=== PATIENT | female | born 1970 | race Caucasian/White ===

== ENCOUNTER 2023-10-31 08:24 | Outpatient (OUT) | payer OTHER, SELFPAY ==
--- NOTE | 2023-10-31 08:33 | US_ITS ---
The [address] [address] Patient Name: PARKER PRIEST MRN: [id number] date: 1970 Sex: F Assigned Patient Location: US Current Patient Location: Accession/Order Number: [id number] Exam Date: 10/31/2023 08:34 Report Date: 11/01/2023 09:30 At the request of: PERRI DEJESUS Procedure: US extremity nonvascular LT EXAMINATION: US extremity nonvascular LT HISTORY: Lymph Node Enlargement R59.9 ; left lower quadrant tender, palpable lump COMPARISON: CT abdomen pelvis 03/31/2020 FINDINGS: Corresponding to patient's palpable lump is a 2.5 x 2.2 x 1.6 cm hypoechoic avascular structure slightly hyperechoic borders. US/US extremity nonvascular LT IMPRESSION: 1. Nonspecific structure corresponding to patient's tender palpable lump. Comparison to prior CT shows a small fat filled direct inguinal hernia in this region. Adjacent density suggests prior hernia repair. Consider CT pelvis with IV contrast for direct comparison and to evaluate for any change since 03/31/2020. Electronically authenticated by: COBY BEDOYA Date: 11/01/2023 09:30
== END 2023-10-31 08:25 | disposition home or self-care (01) ==
LOC: US 08:28
PROVIDERS: PCP Nurse Practitioner Family; Visit Provider Nurse Practitioner Family
DX: R59.9 Enlarged lymph nodes, unspecified (principal); K40.90 Unilateral inguinal hernia, without obstruction or gangrene, not specified as recurrent
CPT/HCPCS: 76882

== ENCOUNTER 2024-08-14 10:04 | Outpatient (OUT) | payer OTHER, SELFPAY ==
[2024-08-14 10:06] LABS: Basophils Percent Auto 0.3 % (0.2-2.0); Eosinophils Absolute Auto 0.6 10^3/uL (0.0-0.7); Eosinophils Percent Auto 4.6 % (0.9-7.0); Hematocrit 39.2 % (36.0-48.0); Hemoglobin 13.4 g/dL (12.0-16.0); Immature Granulocytes Abs Auto 0.03 10^3/uL (0.00-0.03); Immature Granulocytes Pct Auto 0.3 % (0.0-0.5); Lymphocytes Absolute Auto 4.1 10^3/uL (1.2-3.8); Lymphocytes Percent Auto 34.4 % (20.5-60.0); Mean Corpuscular HGB Conc 34.2 g/dL (29.9-35.2); Mean Corpuscular Hemoglobin 31.2 pg (26.7-34.0); Mean Corpuscular Volume 91.2 fL (81.0-99.0); Mean Platelet Volume 9.2 fL (9.5-13.5); Monocytes Percent Auto 8.1 % (1.7-12.0); Neutrophils Absolute Auto 6.2 10^3/uL (1.4-6.5); Neutrophils Percent Auto 52.3 % (43.0-75.0); Platelet Count 338 10^3/uL (150-450); Red Cell Distribution Width 13.2 % (11.0-15.0); White Blood Count 11.9 10^3/uL (4.0-11.0)
--- OUTSIDE RECORDS SUMMARY | 2024-08-14 10:24 | XMS_ITS | CCD ---
Author Organization [facility] Care Team Providers Care Crop Supervisor Name Role Phone VIKRAM MAX ELENO Unavailable Unavailable PARISH, KAM P Unavailable Unavailable PAVLOCK, MAX ELENO Unavailable Unavailable PARISH, KAM P Unavailable Unavailable PARISH, KAM P Unavailable Unavailable PARISH, KAM P Unavailable Unavailable PARISH, KAM P Unavailable Unavailable Unavailable Primary Care Provider UnavailBALTA Almonte V Admitting Unavailable MARKER, JESSIE Referring Unavailable RHEA GILL Attending Unavailable ZULMA DYER Consulting Unavailable NEAL RUANO Attending Unavailable [facility] Primary Care Unavailable KARASIK ., DR ARDON Admitting Unavailabl e KARASIK ., DR ARDON Consulting Unavailabl e KARASIK ., DR ARDON Attending Unavailbrandon e KELSEY, DR SHEILA Conroy Consulting Unavailable LAURA ZAMORAIKH H Primary Care Unavailable KARASIK ., DR ARDON Admitting Unavailabl e KARASIK ., DR ARDON Consulting Unavailabl e KARASIK ., DR ARDON Attending UnavailCRISTIANE Marcus Attending Unavailable CRISTIANE JEREZ Admitting Unavailable CRISTIANE JEREZ Primary Care Physician Cristiane Jerez CNP Unavailable Joe Pollack Attending Unavailable CRISTIANE JEREZ Attending Unavailable CRISTIANE JEREZ Admitting Unavailable Gerardok AUTOMOTIVE INSTRUCTOR.Cristiane NIEVES Unavailable [phone] Dwain Preciado DO Primary Care Provider DWAIN PRECIADO Attending Unavailable DWAIN PRECIADO Primary Care Unavailable DAVE SENA Attending Unavailable LEORA MEI Referring Unavailable DWAIN PRECIADO Primary Care Unavailable KINGS LANDERS III Referring Unavailable DWAIN PRECIADO Primary Care Unavailable KINGS LANDERS III Referring Unavailable DWAIN PRECIADO Referring Unavailable DWAIN PRECIADO Primary Care Unavailable KINGS LANDERS III Attending Unavailable Unavailable Primary Care Provider Unavailabl e SELF, SELF Referring Unavailable SHEILA BERNABE Attending Unavailable PROVIDER, UNKNOWN Attending Unavailable PROVIDER, UNKNOWN Admitting Unavailable Giuseppe AUTOMOTIVE INSTRUCTOR - Elise NIEVES Primary Care Provider MARISSA WILSON Referring Unavailable ELISE SCHNEIDER Primary Care Unavailable MARISSA WILSON Referring Unavailable ELISE SCHNEIDER Primary Care Unavailable ELISE SCHNEIDER Referring Unavailable ELISE SCHNEIDER Primary Care Unavailable Allergies Allergy Classification Reported Allergen(s) Allergy Type Date of Onset Reaction(s) Facility (1 source) No Known Medication Allergies; Translations: [No Known Medication Allergies] Propensity to adverse reactions (disorder) [facility] Repository (3 sources) Seasonal allergy Propensity to adverse reactions to substance 5 [facility] Medications Current Medications Medication Drug Class(es) Dates Sig (Normalized) Sig (Original) acetaminophen 325 mg oral tablet (4 sources) take 2 tablets by mouth every four hours acetaminophen (TYLENOL) 325 MG tablet Take 2 tablets by mouth every 4 hours Active azithromycin 250 mg oral tablet (3 sources) Macrolide Antimicrobial Start: 08-03-2024 End: 08-13-2024 azithromycin (ZITHROMAX) 250 MG tablet Indications: Upper respiratory tract infection, unspecified type 500mg on day 1 followed by 250mg on days 2 - 5 6 tablet 08/03/2024 08/13/2024 Active Start: 11-14-2019 End: 11-15-2019 take 1 tablet by mouth once daily azithromycin (ZITHROMAX) 250 MG tablet Indications: Bipolar 1 disorder with moderate saeid (HCC) Take 1 tablet by mouth daily for 1 day 1 tablet 0 11/14/2019 11/15/2019 Active Multiple Vitamins-Minerals (THERAPEUTIC MULTIVITAMIN-MINERALS) tablet (3 sources) take 1 tablet by mouth once daily Multiple Vitamins-Minerals (THERAPEUTIC MULTIVITAMIN-MINERALS) tablet Take 1 tablet by mouth daily Active OLANZapine 5 mg oral tablet (1 source) Atypical Antipsychotic Star t: 10-25 take 1 tablet by mouth once daily OLANZapine (ZYPREXA) 5 MG tablet Take 1 tablet by mouth nightly 30 tablet 3 11/13/2019 Active omeprazole 20 mg delayed release oral capsule (1 source) Proton Pump Inhibitor take 2 capsules by mouth once daily omeprazole (PRILOSEC) 20 MG delayed release capsule Take 40 mg by mouth daily 0 Active QUEtiapine 50 mg oral tablet (3 sources) Atypical Antipsychotic Star t: 06-27 8 25 take 1 tablet by mouth once daily QUEtiapine (SEROQUEL) 50 MG tablet Indications: TYREL (generalized anxiety disorder) , Moderate episode of recurrent major depressive disorder (HCC) , Bipolar 1 disorder with moderate saeid (HCC) Take 1 tablet by mouth nightly 30 tablet 1 07/14/2024 Active Completed/Discontinued Medications Medication Drug Class(es) Dates Sig (Normalized) Sig (Original) enteric contrast (will be provided with radiology test) (5 sources) Start: 01-24-2024 End: 03-09-2024 enteric contrast (will be provided with radiology test) For CT ABD/PEL W IVCON Routine order Administer, As Directed One Time Only, via Oral, Rectal, both Oral and Rectal, Enteric Tube, Stoma or Indwelling Catheter, Enteric Contrast as designated per enteric contrast guidelines 1 Each 01/24/2024 03/09/2024 Discontinued (Course of therapy completed) Start: 01-24-[address] (will be provided with radiology test) For CT ABD/PEL W IVCON Routine order Administer, As Directed One Time Only, via Oral, Rectal, both Oral and Rectal, Enteric Tube, Stoma or Indwelling Catheter, Enteric Contrast as designated per enteric contrast guidelines 1 Each 01/24/2024 Active hydrOXYzine pamoate 25 mg oral capsule (1 source) Antihistamine End: 11-13-2019 take 1 capsule by mouth four times daily as needed for anxiety hydrOXYzine (VISTARIL) 25 MG capsule Take 25 mg by mouth 4 times daily as needed for Anxiety 0 11/13/2019 Discontinued (Stop Taking at Discharge) iv contrast (will be provided with radiology test) (5 sources) Start: 01-24-2024 End: 03-09-2024 iv contrast (will be provided with radiology test) CT ABD/PEL -Inject, intravenously, once for 1 dose.No IV access, insert saline lock prior to the beginning of sedation, infusion, injection of imaging exam. Discontinue saline lock post exam. If Pt. has a central line or IVAD, may access for administration according to line specific nursing protocol. Once exam is complete flush line and de-access according to line specific nursing protocol in the CT contrast administration guidelines link. 1 Each 01/24/2024 03/09/2024 Discontinued (Course of therapy completed) Start: 01-24-2024 iv contrast (w ill be provided with radiology test) CT ABD/PEL -Inject, intravenously, once for 1 dose.No IV access, insert saline lock prior to the beginning of sedation, infusion, injection of imaging exam. Discontinue saline lock post exam. If Pt. has a central line or IVAD, may access for administration according to line specific nursing protocol. Once exam is complete flush line and de-access according to line specific nursing protocol in the CT contrast administration guidelines link. 1 Each 01/24/2024 Active 24 hr venlafaxine 37.5 mg extended release oral capsule (1 source) Serotonin and Norepinephrine Reuptake Inhibitor End: 11-13-2019 take 1 capsule by mouth once daily venlafaxine (EFFEXOR XR) 37.5 MG extended release capsule Take 37.5 mg by mouth daily 0 11/13/2019 Discontinued (Stop Taking at Discharge) Problems Active Problems Problem Classification Problem Date Documented Da te Episodic/Chronic Abdominal hernia (5 sources) Left inguinal hernia ; Translations: [Unilateral inguinal hernia, without obstruction or gangrene, not specified as recurrent] Onset: 02-07-2024 01-24-2024 Episodic Abdominal pain (12 sources) Unspecified abdominal pain; Translations: [Left lower quadrant pain] Onset: 08-01-2022 Episodic Anxiety disorders (5 sources) Generalized anxiety disorder; Translations: [Generalized anxiety disorder] Onset: 07-07-2024 07-14-2024 Chronic Digestive congenital anomalies (2 sources) Congenital malrotation of intestine; 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] Onset: 03-09-2024 03-09-2024 Chronic Diseases of white blood cells (4 sources) Elevated white blood cell count, unspecified; Translations: [Band neutrophil count above reference range] Onset: 12-03-2017 11-09-2019 Chronic Diseases of white blood cells (1 source) Band neutrophil count above reference range; Translations: [Bandemia] Onset: 11-09-2019 11-09-2019 Episodic Immunizations and screening for infectious disease (1 source) Encounter for screening for human papillomavirus (HPV); Translations: [ENC SCREENING HUMAN PAPILLOMAVIRUS] Onset: 07-29-2022 Episodic Mood disorders (11 sources) Moderate manic bipolar I disorder; Translations: [Moderate recurrent major depression] Onset: 11-06-2019 11-07-2019 Chronic Other gastrointestinal disorders (2 sources) Groin mass; Translations: [Other intra-abdominal and pelvic swelling, mass and lump] 01-20-2024 Episodic Other gastrointestinal disorders (1 source) Other intra-abdominal and pelvic swelling, mass and lump; Translations: [Left groin mass] Onset: 01-24-2024 Episodic Other lower respiratory disease (1 source) Respiratory symptom; Translations: [Respiratory symptoms] Onset: 11-08-2019 11-08-2019 Episodic Other nutritional; endocrine; and metabolic disorders (1 source) Unintentional weight loss; Translations: [Abnormal weight loss] 08-11-2024 Episodic Other nutritional; endocrine; and metabolic disorders (1 source) Abnormal weight loss; Translations: [Abnormal weight loss] Onset: 08-11-2024 Episodic Other screening for suspected conditions (not mental disorders or infectious disease) (9 sources) Encounter for screening for malignant neoplasm of cervix; Translations: [Procedure carried out on subject] Onset: 07-25-2022 Episodic Residual codes; unclassified (3 sources) Family history of cancer of colon; Translations: [Family history of malignant neoplasm of digestive organs] Onset: 07-07-2024 07-07-2024 Episodic Screening and history of mental health and substance abuse codes (2 sources) Patient encounter status; Translations: [Encounter for screening examination for other mental health and behavioral disorders] 01-20-2024 Episodic Substance-related disorders (5 sources) Smoker; Translations: [Tobacco user] Onset: 07-07-2024 11-14-2023 Chronic Comment on above: Added secondary to d ocumentation in Social History. Unclassified (1 source) Patient encounter status 08-11-2024 Past or Other Problems Problem Classification Problem Date Documented Da te Episodic/Chronic Other circulatory disease (3 sources) Respiratory finding; Translations: [Other specified symptoms and signs involving the circulatory and respiratory systems] Onset: 11-08-2019 Resolved: 07-07-2024 07-07-2024 Episodic Pneumonia (except that caused by tuberculosis or sexually transmitted disease) (4 sources) Infective pneumonia; Translations: [Pneumonia] Onset: 11-09-2019 Resolved: 07-07-2024 11-09-2019 Episodic Results Test Name Value Interpretation Reference Range Facility Basic Metabolic Panelon 07-25 Anion gap [Moles/Vol] 11 mmol/L 9 - 16 mmol/L [facility] Calcium [Mass/Vol] 9.9 mg/dL 8.6 - 10. 4 mg/dL [facility] Chloride [Moles/Vol] 104 mmol/L 98 - 107 mmol/L [facility] CO2 [Moles/Vol] 24 mmol/L 20 - 31 mmol/L [facility] Creatinine [Mass/Vol] 0.7 mg/dL 0.50 - 0.90 mg/dL [facility] Est, Karthik Boonet Rate - PINF [facility] Comment on above: These results are not intended for use in patients <18 years of age. eGFR results are calculated without a race factor using the 2020 CKD-EPI equation. Careful clinical correlation is recommended, particularly when comparing to results calculated using previous equations. The CKD-EPI equation is less accurate in patients with extremes of muscle mass, extra-renal metabolism of creatine, excessive creatine ingestion, or following therapy that affects renal tubular secretion. Glucose [Mass/Vol] 91 mg/dL 74 - 99 mg/dL [facility] Potassium [Moles/Vol] 4.4 mmol/L 3.7 - 5.3 mmol/L [facility] Sodium [Moles/Vol] 139 mmol/L 136 - 145 mmol/L [facility] Urea nitrogen [Mass/Vol] 11 mg/dL 6 - 20 mg/dL [facility] Urea nitrogen/Creatinin e [Mass ratio] 16 mg/mg 9 - 20 [facility] Basic Metabolic Profon 08-11 Anion gap [Moles/Vol] 11 mmol/L Normal - [facility] Comment on above: Performed By: #### B MP, CDP #### [facility] [address] [place], [place] [id number] Urban Planning Teacher: Sheila Singleton MD BUN/CRE Ratio 16 Normal - [facility] Comment on above: Performed By: #### B MP, CDP #### [facility] [address] [place], [place] [id number] Urban Planning Teacher: Sheila Singleton MD Calcium [Mass/Vol] 9.9 mg/dL Normal 8.6-10.[address] [facility] Comment on above: Performed By: #### B MP, CDP #### [facility] [address] [place], [place] [id number] Urban Planning Teacher: Sheila Singleton MD Chloride [Moles/Vol] 104 mmol/L Normal 98-[address] [facility] Comment on above: Performed By: #### B SPENSER, CDP #### [facility] [address] [place], [place] [id number] Urban Planning Teacher: Sheila Snigleton MD CO2 [Moles/Vol] 24 mmol/L Normal 20-31 [facility] Comment on above: Performed By: #### B SPENSER, CDP #### [facility] [address] [place] [address] [place], [place] [id number] Urban Planning Teacher: Sheila Singleton MD Creatinine [Mass/Vol] 0.7 mg/dL Normal 0.50-0.[address] [facility] Comment on above: Performed By: #### B SPENSER, CDP #### [facility] [address] [place] [address] [place] [place], [place] [id number] Urban Planning Teacher: Sheila Singleton MD GFR/1.73 sq M.predicted among non-blacks MDRD (S/P/Bld) [Vol rate/Area] mL/min/{1.73_m2} Normal >[address] [facility] Comment on above: Result Comment: These results are not intended for use in patients <18 years of age. eGFR results are calculated without a race factor using the 2020 CKD-EPI equation. Careful clinical correlation is recommended, particularly when comparing to results calculated using previous equations. The CKD-EPI equation is less accurate in patients with extremes of muscle mass, extra-renal metabolism of creatine, excessive creatine ingestion, or following therapy that affects renal tubular secretion. Performed By: #### B MP, CDP #### [facility] [address] [place], [place] [id number] Urban Planning Teacher: Sheila Singleton MD Glucose [Mass/Vol] 91 mg/dL Normal 74-[address] [facility] Comment on above: Performed By: #### B SPENSER, CDP #### [facility] [address] [place], [place] [id number] Urban Planning Teacher: Sheila Singleton MD Potassium [Moles/Vol] 4.4 mmol/L Normal 3.7-5.[address] [facility] Comment on above: Performed By: #### B SPENSER, CDP #### [facility] [address] [place], [place] [id number] Urban Planning Teacher: Sheila Singleton MD Sodium [Moles/Vol] 139 mmol/L Normal 136-[address] [facility] Comment on above: Performed By: #### B SPENSER, CDP #### [facility] [address] [place], [place] [id number] Urban Planning Teacher: Sheila Singleton MD Urea nitrogen [Mass/Vol] 11 mg/dL Normal 6-[address] [facility] Comment on above: Performed By: #### B SPENSER, CDP #### [facility] [address] [place], [place] [id number] Urban Planning Teacher: Sheila Singleton MD CBC with Auto Differentialon 08-11-2024 Basophils (Bld) [#/Vol] 0.05 10*3/uL [facility] Basophils/100 WBC (Bld) 0 % 0 - 2 % [facility] Eosinophils (Bld) [#/Vol] 0.56 10*3/uL High [facility] Eosinophils/100 WBC (Bld) 3 % 1 - 4 % [facility] Erythrocyte distribution width (RBC) [Ratio] 13.5 % 11.8 - 14.4 % [facility] Hematocrit (Bld) [Volume fraction] 44 % 36.3 - 47.1 % [facility] Hemoglobin (Bld) [Mass/Vol] 14.4 g/dL 11.9 - 15.1 g/dL [facility] Immature granulocytes (Bld) [#/Vol] 0.05 10*3/uL [facility] Immature granulocytes/100 WBC (Bld) 0 % 0 [facility] Interpretation and review of laboratory results Abnormal [facility] Lymphocytes/100 WBC (Bld) 27 % 24 - 43 % [facility] Lymphocytes/100 WBC (Bld) 4.51 % High [facility] MCH (RBC) [Entitic mass] 31 pg 25.2 - 33.5 pg [facility] MCHC (RBC) [Mass/Vol] 32.7 g/dL 28.4 - 34.8 g/dL [facility] MCV (RBC) [Entitic vol] 94.6 fL 82.6 - 102.9 fL [facility] Monocytes/100 WBC (Bld) 7 % 3 - 12 % [facility] Monocytes/100 WBC (Bld) 1.21 % High [facility] Neutrophils/100 WBC (Bld) 63 % 36 - 65 % [facility] Nucleated RBC/100 WBC (Bld) [Ratio] 0 % 0.0 per 100 WBC [facility] Platelet mean volume (Bld) [Entitic vol] 9.7 fL 8.1 - 13.5 fL [facility] Platelets (Bld) [#/Vol] 354 10*3/uL [facility] RBC (Bld) [#/Vol] 4.65 10*6/uL 3.95 - 5.11 m/uL [facility] Segmented neutrophils/100 WBC (Bld) 10.62 % High [facility] WBC other (Bld) [#/Vol] 17 High [facility] CBC with Diffon 08-11-2024 Abs. Basophil 0.05 k/uL Normal 0.00-0.20 [facility] Comment on above: Performed By: #### B MP, CDP #### [facility] [address] [place] [address] Urban Planning Teacher: Sheila Singleton MD Abs.Imm.Granulocyt e 0.05 k/uL Normal 0.00-0.[address] [facility] Comment on above: Performed By: #### B SPENSER, CDP #### [facility] [address] [place] [address] [place] [address] Urban Planning Teacher: Sheila Singleton MD Abs.Neutrophil (Seg) 10.62 k/uL High 1.50-8.[address] [facility] Comment on above: Performed By: #### B SPENSER, CDP #### [address] [place] [address] Urban Planning Teacher: Sheila Sinlgeton MD Basophils/100 WBC (Bld) 0 % Normal 0-[address] [facility] Comment on above: Performed By: #### B SPENSER, CDP #### [address] [place], [id number] Urban Planning Teacher: Sheila Singleton MD Eosinophils (Bld) [#/Vol] 0.56 10*3/uL High 0.00-0.[address] [facility] Comment on above: Performed By: #### B SPENSER, CDP #### [address] [place], [id number] Urban Planning Teacher: Sheila Singleton MD Eosinophils/100 WBC (Bld) 3 % Normal 1-[address] [facility] Comment on above: Performed By: #### B SPENSER, CDP #### [address] [place], [id number] Urban Planning Teacher: Sheila Singleton MD Erythrocyte distribution width (RBC) [Ratio] 13.5 % Normal 11.8-14.[address] [facility] Comment on above: Performed By: #### B SPENSER, CDP #### [address] [place] [address] Urban Planning Teacher: Sheila Singleton MD Hematocrit (Bld) [Volume fraction] 44.0 % Normal 36.3-47.[address] [facility] Comment on above: Performed By: #### B SPENSER, CDP #### [facility] [address] [place], [place] [id number] Urban Planning Teacher: Sheila Singleton MD Hemoglobin (Bld) [Mass/Vol] 14.4 g/dL Normal 11.9-15.[address] [facility] Comment on above: Performed By: #### B MP, CDP #### [facility] [address] [place] [address] [place], [place] [id number] Urban Planning Teacher: Sheila Singleton MD Immature granulocytes/100 WBC (Bld) 0 % Normal [address] [facility] Comment on above: Performed By: #### B SPENSER, CDP #### [address] [place], [place] [id number] Urban Planning Teacher: Sheila Singleton MD Lymphocytes (Bld) [#/Vol] 4.51 10*3/uL High 1.10-3.[address] [facility] Comment on above: Performed By: #### B SPENSER, CDP #### [address] [place], [place] [id number] Urban Planning Teacher: Sheila Singleton MD Lymphocytes/100 WBC (Bld) 27 % Normal 24-[address] [facility] Comment on above: Performed By: #### B SPENSER, CDP #### [facility] [address] [place] [address] [place], [id number] Urban Planning Teacher: Sheila Singleton MD MCH (RBC) [Entitic mass] 31.0 pg Normal 25.2-33.[address] [facility] Comment on above: Performed By: #### B SPENSER, CDP #### [facility] [address] [place] [address] [place] [address] Urban Planning Teacher: Sheila Singleton MD MCHC (RBC) [Mass/Vol] 32.7 g/dL Normal 28.4-34.[address] [facility] Comment on above: Performed By: #### B SPENSER, CDP #### [facility] [address] [place], [place] [phone] Urban Planning Teacher: Sheila Singleton MD MCV (RBC) [Entitic vol] 94.6 fL Normal 82.6-102.[address] [facility] Comment on above: Performed By: #### B MP, CDP #### [facility] [address] [place], [place] [id number] Urban Planning Teacher: Sheila Singleton MD Monocytes (Bld) [#/Vol] 1.21 10*3/uL High 0.10-1.[address] [facility] Comment on above: Performed By: #### B SPENSER, CDP #### [address] [place], [place] [id number] Urban Planning Teacher: Sheila Singleton MD Monocytes/100 WBC (Bld) 7 % Normal 3-[address] [facility] Comment on above: Performed By: #### B SPENSER, CDP #### [address] [place], [place] [id number] Urban Planning Teacher: Sheila Singleton MD Neutrophil (Seg) 63 % Normal 36-65 [facility] Comment on above: Performed By: #### B MP, CDP #### [address] [place], [place] [id number] Urban Planning Teacher: Sheila Singleton MD NRBC Automated 0.0 per 100 WBC Normal 0.[address] [facility] Comment on above: Performed By: #### B MP, CDP #### [facility] [address] [place], [place] [id number] Urban Planning Teacher: Sheila Singleton MD Platelet mean volume (Bld) [Entitic vol] 9.7 fL Normal 8.1-13.[address] [facility] Comment on above: Performed By: #### B MP, CDP #### [facility] [address] [place] [address] [place], [place] [address] Urban Planning Teacher: Sheila Singleton MD Platelets (Bld) [#/Vol] 354 10*3/uL Normal 138-[address] [facility] Comment on above: Performed By: #### B MP, CDP #### [facility] [address] [place] [address] Urban Planning Teacher: Sheila Singleton MD RBC (Bld) [#/Vol] 4.65 10*6/uL Normal 3.95-5.[address] [facility] Comment on above: Performed By: #### B MP, CDP #### [facility] [address] [place] [address] Urban Planning Teacher: Sheila Singleton MD WBC (Bld) [#/Vol] 17.0 10*3/uL High 3.5-11.[address] [facility] Comment on above: Performed By: #### B MP, CDP #### [facility] [address] [place], [place] [id number] Urban Planning Teacher: Sheila Singleton MD EKG 12 LeadOrdered By: Miguel Ángel hoover on 08-11-2024 Atrial Rate 69 BPM [employer] Phone: P [place] 49 degrees [employer] Phone: P-R Interval 112 ms [employer] Phone: Q-T Interval 380 ms [employer] Phone: QRS Duration 74 ms [employer] Phone: QTc Calculation (Bazett) 407 ms [employer] Work Phone: R [place] 86 degrees [employer] Phone: T [place] 82 degrees [employer] Phone: Ventricular Rate 69 BPM [employer] Phone: [employer] Work Phone: EKG 12 Leadon 08-11-2024 Normal sinus rhythm Normal ECG No previous ECGs available Confirmed by Miguel Ángel Drake MD ([id number]) on 08/11/2024 12:33:57 PM [facility] RADIOLOGY Miguel Ángel Draek MD - 08/11/2024 Normal sinus rhythm Normal ECG No previous ECGs available Confirmed by Miguel Ángel Drake MD ([id number]) on 08/11/2024 12:33:57 PM [facility] System TSH reflex to FT4on 07-14-19 25 TSH Qn 1.92 m[IU]/L [facility] TSH w/reflex to FT4on 2024 Thyroid Stim. Horm. 1.92 uIU/mL Normal 0.27-4.[address] [facility] Comment on above: Performed By: #### T SHX #### [facility] [address] [place] [address] Urban Planning Teacher: Sheila Singleton MD Progress Noteson 06-24-2024 Technical Specialist [employer] Authentication Interface Message Text General Surgery New Patient Visit Chief Complaint: left groin pain History of Present Illness: A 53 year old White female presents to the Surgery Clinic for evaluation of left groin pain s/p two open left inguinal hernia repairs. Noticed a lump in the left groin in September 2023. She reports previous mesh repair in [place], [place] 2 years ago. There is some discomfort when she lifts something or is more active. She experiences shooting pain in the left leg that radiates down the leg. Reports lifting 40-50 lbs of pellets for her stove. Sometimes takes Tylenol for pain control. Intermittent constipation. Not on a bowel regimen. Reports a colonoscopy over 20 years ago and reports that it was normal. No obstructions or incarcerations. Currently does not have a PCP. Patient denies any past medical history and not on pain medications. Patient primarily received care at [facility]. Notes reviewed. She had two prior open left inguinal hernia pairs with mesh. She was evaluated by general surgery and there was no concern for recurrent hernia on physical exam or upon review of CT images. The CT was read as a fat containing left inguinal hernia by the radiology . The plan was for the patient to obtain an ultrasound of the groin. Review of report indicates no recurrent hernia. She was also incidentally noted ot have malrotation on CT imaging without volvulus. In March 2023 she was evaluated by an outside physician with report of LLQ pain and weight loss. She reports an acute physical decline and weight loss in September 2023 and within that month lost 25 pounds. Bouts of diarrhea with po intake, it is now improving. Says she had recent infections in her liver and kidney requiring antibiotics and a kidney cleanse that occurred in October-November 2023. Says she started the process for workup with GI at [facility] but did not complete. BMI- 17.51 Abdominal Surgeries- 30 years ago +Smoking for 20 years, 1 PPD No Diabetes No Chronic cough No DVT/PE No anticoagulation Imaging CT A/P 02/07/24 at [facility] GI tract: The stomach is distended. Of note, the duodenum does not cross midline, compatible with malrotation. However, no small bowel obstruction or volvulus is noted. The cecum is seen within the right lower quadrant. Moderate stool is noted throughout the colon. The colon is otherwise unremarkable. Lymph nodes: No abdominal or pelvic lymphadenopathy. Mesentery/Peritoneum: No ascites or mass. Retroperitoneum: No mass. Vasculature: - Abdominal aorta and iliac arteries: Atherosclerotic calcifications without aneurysm. - Celiac and SMA: Patent without stenosis. - Portal venous system (SMV, splenic vein, portal vein and branches): The main portal vein is dilated measuring up to 1.8 cm in diameter. The splenic vein and SMV are patent. Additionally, note is made of an inverted relationship between the SMA and SMV. The SMV is seen to the left of the SMA on the current study. - Hepatic veins: Patent. Pelvis: The urinary bladder is unremarkable. The uterus is present. No pelvic mass or fluid collection is seen. There is a small left inguinal hernia containing fat and a trace amount of fluid. No bowel is seen within the hernia sac. Hernia defect measures up to 1.5 cm in diameter. Bones/Soft Tissues: Mild degenerative changes seen in the lumbar spine. Superficial soft tissues are unremarkable. Lower thorax: No lobar consolidation or pleural effusion is seen. Past Medical History: Diagnosis Date GERD (gastroesophageal reflux disease) Nicotine dependence Past Surgical History: Procedure Laterality Date REPAIR INGUINAL HERNIA 70614 Social History Socioeconomic History Marital status: Review Of Systems Skin: negative Eyes: negative review of symptoms Ears/Nose/Throat: negative Respiratory: negative symptoms (no cough, hemoptysis, SOB, CALVERT, PND, wheezing) Cardiovascular: negative symptoms (No CP/Pressure/Tightness, palpitations, orthopnea, PND, SOB, CALVERT, edema, AWAD or vision change) Gastrointestinal: abdominal pain Genitourinary: no urinary symptoms Musculoskeletal: negative (no arthritic pain, no joint swelling, no muscle weakness) Neurologic: negative symptoms (no syncope, seizures, weakness, gait problems, numbness, burning pain, tremors, or memory loss) Psychiatric: negative (no sleep disturbance, anxiety, memory loss, disorientation, inattention, feelings of depression) Hematologic/Lymphatic/Immunol ogic: negative (no anemia, bleeding, bruising) Endocrine: negative review of symptoms PHYSICAL EXAMINATION: BP 106/70 (BP Location: left arm, BP position: sitting, Cuff Size: adult) Pulse 69 Resp 14 Ht 5' 4 (1.626 m) Wt 102 lb (46.3 kg) BMI 17.51 kg/m??? General appearance: no distress Skin: Skin color, texture, turgor normal. Head: Normocephalic. Eyes: conjunctivae not injected /corneas clear. Back: Back symmetric Lungs: Chest symmetric. Normal respiratory effort Abdome (more content not included)... Normal [facility] [facility] [place] Telephone (RULTTB) SYLVIA BARKSDALE ([id number]) 1970 F Date Time Provider Department 03/27/24 YOON BENSON During your visit today, we recorded the following information about you: Yoon Benson 03/27/2024 10:16 AM Addendum Visit Type: ANY MSK Visit Length: 45, 50 OR 60 MINUTES Order Name/Protocol: US HIP LT; MEDIAL-EVAL FOR LT INGUINAL HERNIA Preferred Provider: N/A Comment: Please ask if the patient has ever had any prior surgery to their LT groin. If so, upgrade the visit type to an MSK1 and notate the surgical hx in the Appointment Note. Location: Depending on the surgical hx, this patient can have this exam performed at any of our four locations. Slot held: N/A Yoon Benson 03/27/2024 11:08 AM Signed Called patient on March 27, 2024 at 11:07 AM to schedule their MSK US exam. PT declined to schedule due to availability. PT will call back if PT decides to schedule the appointment. Allergies As of Date: 03/27/2024 (No Known Allergies) Date Reviewed: 03/09/2024 Reviewed by: Jaz Ward MA - Fully Assessed Reason for Visit: Appointment [[id number]] Problem List As Of Date: 03/27/2024 (None) Encounter Status:Closed by YOON BENSON on 03/27/24 [facility] 03-12-2024 CNPN Telephone (GENBMI) SYLVIA BARKSDALE ([id number]) 1970 F Date Time Provider Department 03/12/24 DONA MCGINNIS During your visit today, we recorded the following information about you: Dona Mcginnis, RN 03/12/2024 6:32 PM Signed Contacted patient- very upset that she attempted to connect wit hhte correct surgical team and was told on two or three occasions that she was not with the right team. Reviewed pt's medical concerns and assured her that Dr. Angulo is the correct surgeon for her intestinal malrotation. Offered to schedule pt- declined. Re-iterated that she is very dissatisfied with the [facility] and is transferring care. Offered pt this Rns contact info in case she needs to connect with someone from [facility] who can assist. Allergies As of Date: 03/12/2024 (No Known Allergies) Date Reviewed: 03/09/2024 Reviewed by: Jaz Ward MA - Fully Assessed Problem List As Of Date: 03/12/2024 (None) Encounter Status:Closed by DONA MCGINNIS on 03/12/24 Normal [facility] CNOVon 03-09-2024 CNOV Office Visit (ESTHER ) SYLVIA BARKSDALE ([id number]) 1970 F Date Time Provider Department 03/09/24 2:00 PM DAVE SENA During your visit today, we recorded the following information about you: Temperature Pulse Blood pressure Weight 98.7 degrees 69/minute 106/67 46.1 kg Height 1.626 m Jaz Ward MA 03/09/2024 2:46 PM Signed What is the reason for your visit today? Consult Who is your referring physician? Leora Mei Are you having poor oral intake? NO Have you had unintentional weight loss of 15 lbs/7 Kg in the last 3-6 months? YES Bowels: constipated, diarrhea, or regular Wound: None Temperature: No Drains: No Jeanette Arias MD 03/09/2024 3:54 PM Signed [facility] - HISTORY AND PHYSICAL Chief Complaint: L inguinal groin pain HPI: Sylvia Barksdale is a 53 year old female hx of L inguinal hernia repair x2 who presents with L inguinal groin pain and bulge. Her last inguinal hernia operation was 2 years ago, not sure if it was with mesh. She currently has a lump in her left groin with pain, and has constipation, abdominal pain, bloating, and cramping. Recent CT shows incidentally found malrotation. Relevant previous abdominal operations include: L Inguinal hernia repair x2 C section Opioid Dependence Risk Screen: Major Depression Anxiety Disorder Functional Status: Independent Employment Status: No employment Activity Level: Moderate (once/week) Co-morbidities: No Significant Comorbidities No past medical history on file. No past surgical history on file. Social History Tobacco Use Smoking status: Every Day Types: Cigarettes Smokeless tobacco: Never Substance Use Topics Alcohol use: Yes Additional social history not relevant to the patient's HPI FAMILY HISTORY Problem Relation Age of Onset Colon Cancer Father Colon Cancer Brother Additional family history not relevant to the patient's HPI ALLERGIES No Known Allergies No current outpatient medications on file. No current facility-administered medications for this visit. REVIEW OF SYSTEMS GENERAL: No fevers. RESPIRATORY: No cough or shortness of breath CARDIOVASCULAR: No chest pain GI: No nausea, vomiting, or diarrhea The remainder of the review of systems is negative. BP 106/67 Pulse 69 Temp 37.1 ?C (98.7 ?F) (Temporal) Ht 162.6 cm (5' 4 ) Wt 46.1 kg (101 lb 11.2 oz) BMI 17.46 kg/m? Physical findings of this patient are as follows Physical Exam Constitutional: The patient is well-developed and in no distress. Cardiovascular: Regular rate. Pulmonary/Chest: Effort normal and breathing comfortably on room air. Abdominal: Soft. Diffusely tender Neurological: Alert. Skin: Skin is warm and dry. Psychiatric: Affect and judgment normal. Relevant Hernia Findings - Left inguinal scar tissue, no hernia palpated LABS: No results found for: HBA1C IMAGING - Reviewed with staff CT - 01/2024 IMPRESSION: 1. Incidental note made of small bowel malrotation without evidence of midgut volvulus. No evidence of small bowel obstruction at this time. 2. Small fat-containing left inguinal hernia. On direct review, no hernia seen Assessment: Sylvia Barksdale is a 53 year old female who presents with L groin pain and abdominal pain, CT with incidental malrotation without volvulus or obstruction, no hernia recurrence on direct read Plan: - No recurrence of hernia on CT or exam - Will get US of L groin - Consult to Dr. Luevano regarding malrotation Discussed with Dr. Hilario Arias MD General Surgery PGY1 Dave Sena MD 03/09/2024 3:54 PM Signed Consultation requested by Dr. Leroa Mei for an opinion regarding recurrent inguinal hernia. My final recommendations will be communicated back to the requesting physician by way of shared medical record or letter via US mail. Sylvia Barksdale is a 53 year old female who presents with possible recurrent left inguinal hernia. She has undergone two open left inguinal hernia repairs. We don't have the op reports. On exam, I do not think she has a left inguinal hernia. Her CT scan was read with a left inguinal hernia, but on reviewing the imaging, I do not see an inguinal hernia. We will get an US to assess the groin area. She also has malrotation on the CT and complains of abdominal pain. I will refer her to Dr. Reece for further evaluation. I have seen and evaluated the patient and discussed the case with the resident physician. I agree with the assessment and plan as documented in the resident?s note including a ROS that was reviewed and negative other than what was indicated in our notes. Patient consented for study? Not applicable Referring Provider: LEORA MEI [[id number]] Allergies As of Date: 03/09/2024 (No Known Allergies) (more content not included)... Normal [facility] HISTORY PHYSICALon 4 HISTORY PHYSICAL HNO ID: [id number] Author: JEANETTE RAIAS MD Service: ? Author Type: Resident Type: H&P Filed: 03/09/2024 15:54 Note Text: [facility] - HISTORY AND PHYSICAL Chief Complaint: L inguinal groin pain HPI: Sylvia Barksdale is a 53 year old female hx of L inguinal hernia repair x2 who presents with L inguinal groin pain and bulge. Her last inguinal hernia operation was 2 years ago, not sure if it was with mesh. She currently has a lump in her left groin with pain, and has constipation, abdominal pain, bloating, and cramping. Recent CT shows incidentally found malrotation. Relevant previous abdominal operations include: L Inguinal hernia repair x2 C section Opioid Dependence Risk Screen: Major Depression Anxiety Disorder Functional Status: Independent Employment Status: No employment Activity Level: Moderate (once/week) Co-morbidities: No Significant Comorbidities No past medical history on file. No past surgical history on file. Social History Tobacco Use Smoking status: Every Day Types: Cigarettes Smokeless tobacco: Never Substance Use Topics Alcohol use: Yes Additional social history not relevant to the patient's HPI FAMILY HISTORY Problem Relation Age of Onset Colon Cancer Father Colon Cancer Brother Additional family history not relevant to the patient's HPI ALLERGIES No Known Allergies No current outpatient medications on file. No current facility-administered medications for this visit. REVIEW OF SYSTEMS GENERAL: No fevers. RESPIRATORY: No cough or shortness of breath CARDIOVASCULAR: No chest pain GI: No nausea, vomiting, or diarrhea The remainder of the review of systems is negative. BP 106/67 Pulse 69 Temp 37.1 ?C (98.7 ?F) (Temporal) Ht 162.6 cm (5' 4 ) Wt 46.1 kg (101 lb 11.2 oz) BMI 17.46 kg/m? Physical findings of this patient are as follows Physical Exam Constitutional: The patient is well-developed and in no distress. Cardiovascular: Regular rate. Pulmonary/Chest: Effort normal and breathing comfortably on room air. Abdominal: Soft. Diffusely tender Neurological: Alert. Skin: Skin is warm and dry. Psychiatric: Affect and judgment normal. Relevant Hernia Findings - Left inguinal scar tissue, no hernia palpated LABS: No results found for: HBA1C IMAGING - Reviewed with staff CT - 01/2024 IMPRESSION: 1. Incidental note made of small bowel malrotation without evidence of midgut volvulus. No evidence of small bowel obstruction at this time. 2. Small fat-containing left inguinal hernia. On direct review, no hernia seen Assessment: Sylvia Bains Barksdale is a 53 year old female who presents with L groin pain and abdominal pain, CT with incidental malrotation without volvulus or obstruction, no hernia recurrence on direct read Plan: - No recurrence of hernia on CT or exam - Will get US of L groin - Consult to Dr. Luevano regarding malrotation Discussed with Dr. Hilario Arias MD General Surgery PGY1 Normal [facility] Nayana 02-11-2024 CNPN Telephone ([employer]) SYLVIA BARKSDALE ([id number]) 1970 F Date Time Provider Department 02/11/24 LEORA MEI During your visit today, we recorded the following information about you: Leora Mei PA-C 02/11/2024 1:57 PM Signed I called patient and advised of below: IMPRESSION: 1. Incidental note made of small bowel malrotation without evidence of midgut volvulus. No evidence of small bowel obstruction at this time. 2. Small fat-containing left inguinal hernia. I advised I discussed results with Dr. Landers and he is recommending hernia center surgeon due to history of 2 previous LIH repairs. Patient states he did mention this in the office. I advised of incidental finding of malrotation without complication presently, but to be aware if severe pain, lack of bowel function, NV, etc need to seek emergent attention. Patient voiced understanding and appreciative. Alise Dominique 02/12/2024 3:22 PM Signed 03-09-24 Dr Hilario Bains/Leslie Allergies As of Date: 02/11/2024 (No Known Allergies) Date Reviewed: 01/24/2024 Reviewed by: Nano Pike OCCA - Fully Assessed Primary Visit Diagnosis:Recurrent left inguinal hernia [K40.91] Order(s):CONSULT TO GENERAL SURGERY [9011] Order #: [id number]: 1 FUTURE Prescriptions as of 02/12/2024 - iv contrast (will be provided with radiology test) CT ABD/PEL -Inject, intravenously, once for 1 dose.No IV access, insert saline lock prior to the beginning of sedation, infusion, injection of imaging exam. Discontinue saline lock post exam. If Pt. has a central line or IVAD, may access for administration according to line specific nursing protocol. Once exam is complete flush line and de-access according to line specific nursing protocol in the CT contrast administration guidelines link. - enteric contrast (will be provided with radiology test) For CT ABD/PEL W IVCON Routine order Administer, As Directed One Time Only, via Oral, Rectal, both Oral and Rectal, Enteric Tube, Stoma or Indwelling Catheter, Enteric Contrast as designated per enteric contrast guidelines Problem List As Of Date: 02/11/2024 (None) Encounter Status:Closed by LEORA MEI on 02/11/24 Normal [facility] CT ABD/PEL W IVCONon -13-[address] ABD/PEL W IVCON * * *Final Report* * * DATE OF EXAM: Feb 07 2024 3:31PM [facility] 0530 - CT ABD/PEL W IVCON / PROCEDURE REASON: Left lower quadrant abdominal pain * * * * Physician Interpretation * * * * RESULT: EXAMINATION: CT ABDOMEN AND PELVIS WITH IV CONTRAST CLINICAL HISTORY: Left lower quadrant pain. History of left inguinal hernia repair. TECHNIQUE: CT of the abdomen and pelvis was performed using standard technique, scanning from just above the dome of the diaphragm to the symphysis pubis. MQ: CTAP_3 Contrast: IV: 90 ml of Omnipaque 350 Oral: 450 ml of Omni 240 10-25ml diluted with water CT Radiation dose: Integrated Dose-length product (DLP) for this visit = 136 mGy*cm. CT Dose Reduction Employed: Automated exposure control (AEC) COMPARISON: None available. RESULT: Liver: No mass. Biliary: No bile duct dilation. Spleen: No mass. No splenomegaly. Pancreas: No mass or duct dilation. Adrenals: No mass. Kidneys: No mass, calculus or hydronephrosis. GI tract: The stomach is distended. Of note, the duodenum does not cross midline, compatible with malrotation. However, no small bowel obstruction or volvulus is noted. The cecum is seen within the right lower quadrant. Moderate stool is noted throughout the colon. The colon is otherwise unremarkable. Lymph nodes: No abdominal or pelvic lymphadenopathy. Mesentery/Peritoneum: No ascites or mass. Retroperitoneum: No mass. Vasculature: - Abdominal aorta and iliac arteries: Atherosclerotic calcifications without aneurysm. - Celiac and SMA: Patent without stenosis. - Portal venous system (SMV, splenic vein, portal vein and branches): The main portal vein is dilated measuring up to 1.8 cm in diameter. The splenic vein and SMV are patent. Additionally, note is made of an inverted relationship between the SMA and SMV. The SMV is seen to the left of the SMA on the current study. - Hepatic veins: Patent. Pelvis: The urinary bladder is unremarkable. The uterus is present. No pelvic mass or fluid collection is seen. There is a small left inguinal hernia containing fat and a trace amount of fluid. No bowel is seen within the hernia sac. Hernia defect measures up to 1.5 cm in diameter. Bones/Soft Tissues: Mild degenerative changes seen in the lumbar spine. Superficial soft tissues are unremarkable. Lower thorax: No lobar consolidation or pleural effusion is seen. Localizer images: No additional findings. IMPRESSION: 1. Incidental note made of small bowel malrotation without evidence of midgut volvulus. No evidence of small bowel obstruction at this time. 2. Small fat-containing left inguinal hernia. Transcribe Date/Time: Feb 10 2024 9:30A Dictated by: JOSE RAUL BOCANEGRA MD This examination was interpreted and the report reviewed and electronically signed by: JOSE RAUL BOCANEGRA MD on Feb 10 2024 9:49AM EST Thank you for allowing us to participate in the care of your patient. Should there be any questions regarding this interpretation, please call [phone]. If you are unable to reach us at the number above, please feel free to contact [facility] at [phone]. [id number] Normal [facility] CNOVon 01-24-2024 CNOV Office Visit (GENSAV ) SYLVIA BARKSDALE ([id number]) 1970 F Date Time Provider Department 01/24/24 11:45 AM KINGS LANDERS III During your visit today, we recorded the following information about you: Pulse Blood pressure Weight Height 76/minute 112/44 45.2 kg 1.626 m Kings Landers III, MD 01/24/2024 12:11 PM Signed Ms. Barksdale is here today at the request of Dwain Preciado [id number] [facility] [id number] for my opinion regarding abdominal pain. My final recommendation will be communicated back to the requesting physician by way of shared medical record or letter. Pain present for the past 10 months. Pain is located in LLQ Pain is sharp/stabbing dull/aching Pain severity is 8/10 Pain radiates down the leg sometimes Pain is associated with bulge; also complains of alternating diarrhea and constipation as well as heartburn Pain is worse with bending, coughing, lifting Pain is better with hernia belt and heating pad No past medical history on file.No past surgical history on file. Social History Tobacco Use Smoking status: Never Substance Use Topics Alcohol use: Yes FAMILY HISTORY Problem Relation Age of Onset Colon Cancer Father Colon Cancer Brother REVIEW OF SYSTEMS GENERAL: No weight loss or malaise, Positive for fatigue and fevers. HEENT: Negative for frequent or significant headaches, Negative for changes in hearing, vision or dizziness, Negative for nose bleeds, Positive for difficulty swallowing and hoarsness RESPIRATORY: Negative for cough, hemoptysis, wheezing or shortness of breath CARDIOVASCULAR: Negative for chest pain, leg swelling or palpitations. GI: SEE HPI : No history of dysuria, hematuria, frequency or incontinence. SKIN: Negative for lesions, rash, and itching NEURO: No history of syncope, paralysis, seizures or tremors; Positive for migraines PHYSICAL EXAMINATION BP (!) 112/44 Pulse 76 Ht 162.6 cm (5' 4 ) Wt 45.2 kg (99 lb 10.4 oz) SpO2 99% BMI 17.10 kg/m? General Appearance: Well appearing, alert, in no acute distress, well-hydrated, well nourished., Thin. Skin: Color, texture, turgor normal, no suspicious rashes or lesions Head: Normocephalic, no masses, lesions, tenderness or abnormalities Neck: Supple, no adenopathy; Lungs: Clear to auscultation. No wheezing, rhonchi, rales Heart: RRR without murmur, gallop, or rubs. No ectopy Abdomen: Soft, non-tender. Bowel sounds normal. No masses, organomegaly; thin skin palpable masses in subcutaneous tissue without obvious bulge Extremities: No ankle edema. Lymph Nodes: No cervical lymphadenopathy, No supraclavicular lymphadenopathy, Assessment History of left inguinal hernia repair LLQ pain Plan: Discussed checking a CT to further evaluate complaint of left groin pain given 2 prior hernia repairs at that location. She appeared to understand and accepted at this time. Attending note: Patient seen by Mine Max, RN and myself. I personally examined the patient, all components above personally confirmed, note attended where appropriate. History and exam as noted above reviewed. Agree with plan as discussed above. Kings Landers III, MD cc: Referring provider Dwain Preciado [id number] [facility] [address] Referring Provider: DWAIN PRECIADO [[id number]] Allergies As of Date: 01/24/2024 (No Known Allergies) Date Reviewed: 01/24/2024 Reviewed by: Nano Pike O[facility] - Fully Assessed Reason for Visit: Consult [173] Cmt: hernia Primary Visit Diagnosis:Reducible left inguinal hernia [K40.90] Other Visit Diagnoses:Left groin mass [R19.09] History of left inguinal hernia repair [Z98.890, Z87.19] LLQ pain [R10.32] Left lower quadrant abdominal pain [R10.32] Order(s):CONSULT TO GENERAL SURGERY [9011] Order #: [id number]: 1 CT ABD/PEL W IVCON [[id number]] Order #: [id number] FUTURE iv contrast (will be provided with radiology test)CT ABD/PEL -Inject, intravenously, once for 1 dose.No IV access, insert saline lock prior to the beginning of sedation, infusion, injection of imaging exam. Discontinue saline lock post exam. If Pt. has a central line or IVAD, may access for administration according to line specific nursing protocol. Once exam is complete flush line and de-access according to line specific nursing protocol in the CT contrast administration guidelines link.Disp: 1 EachRfl: 0 enteric contrast (will be provided with radiology test)For CT ABD/PEL W IVCON Routine order Administer, As Directed One Time Only, via Oral, Rectal, both Oral and Rectal, Enteric Tube, Stoma or Indwelling Catheter, Enteric Contrast as designated per enteric contrast guidelinesDisp: 1 EachRfl: 0 Prescriptions as of 01/24/2024 - iv contrast (will be provided with radiology test) CT ABD/PEL -Inject, intravenously, once for 1 dose.No IV access, insert saline lock gabriela (more content not included)... Normal [facility] HISTORY PHYSICALon HISTORY PHYSICAL HNO ID: [id number] Author: KINGS LANDERS III, MD Service: ? Author Type: Physician Type: H&P Filed: 01/24/2024 12:11 Note Text: Ms. Barksdale is here today at the request of Dwain Preciado [id number] [facility] [id number] for my opinion regarding abdominal pain. My final recommendation will be communicated back to the requesting physician by way of shared medical record or letter. Pain present for the past 10 months. Pain is located in LLQ Pain is sharp/stabbing dull/aching Pain severity is 8/10 Pain radiates down the leg sometimes Pain is associated with bulge; also complains of alternating diarrhea and constipation as well as heartburn Pain is worse with bending, coughing, lifting Pain is better with hernia belt and heating pad No past medical history on file.No past surgical history on file. Social History Tobacco Use Smoking status: Never Substance Use Topics Alcohol use: Yes FAMILY HISTORY Problem Relation Age of Onset Colon Cancer Father Colon Cancer Brother REVIEW OF SYSTEMS GENERAL: No weight loss or malaise, Positive for fatigue and fevers. HEENT: Negative for frequent or significant headaches, Negative for changes in hearing, vision or dizziness, Negative for nose bleeds, Positive for difficulty swallowing and hoarsness RESPIRATORY: Negative for cough, hemoptysis, wheezing or shortness of breath CARDIOVASCULAR: Negative for chest pain, leg swelling or palpitations. GI: SEE HPI : No history of dysuria, hematuria, frequency or incontinence. SKIN: Negative for lesions, rash, and itching NEURO: No history of syncope, paralysis, seizures or tremors; Positive for migraines PHYSICAL EXAMINATION BP (!) 112/44 Pulse 76 Ht 162.6 cm (5' 4 ) Wt 45.2 kg (99 lb 10.4 oz) SpO2 99% BMI 17.10 kg/m? General Appearance: Well appearing, alert, in no acute distress, well-hydrated, well nourished., Thin. Skin: Color, texture, turgor normal, no suspicious rashes or lesions Head: Normocephalic, no masses, lesions, tenderness or abnormalities Neck: Supple, no adenopathy; Lungs: Clear to auscultation. No wheezing, rhonchi, rales Heart: RRR without murmur, gallop, or rubs. No ectopy Abdomen: Soft, non-tender. Bowel sounds normal. No masses, organomegaly; thin skin palpable masses in subcutaneous tissue without obvious bulge Extremities: No ankle edema. Lymph Nodes: No cervical lymphadenopathy, No supraclavicular lymphadenopathy, Assessment History of left inguinal hernia repair LLQ pain Plan: Discussed checking a CT to further evaluate complaint of left groin pain given 2 prior hernia repairs at that location. She appeared to understand and accepted at this time. Attending note: Patient seen by Mine Hernandez RN and myself. I personally examined the patient, all components above personally confirmed, note attended where appropriate. History and exam as noted above reviewed. Agree with plan as discussed above. Kings Landers III, MD cc: Referring provider Dwain Preciado [id number] [facility] [id number] Normal [facility] 01-21-2024 CNPN Telephone (RULTTB) SYLVIA BARKSDALE ([id number]) 1970 F Date Time Provider Department 01/21/24 SILAS MCDONALD RULTTB During your visit today, we recorded the following information about you: Silas Mcdonald PCNA 01/21/2024 8:30 AM Addendum Visit Type: US MSK1 Visit Length: 45 OR 60 MINUTES Order Name/Protocol: US HIP LT; MEDIAL-EVAL FOR LT INGUINAL HERNIA, S/P SURGERY Preferred Provider: N/A Comment: N/A Location: [facility] Slot held: N/A Joanne Lim 01/21/2024 11:00 AM Signed Called patient on January 21, 2024 at 11:00 AM to schedule their MSK US exam. No answer, left VM, 1st attempt. Joanne Lim 01/21/2024 3:47 PM Signed Patient called on January 21, 2024 at 3:45 PM to schedule their MSK US exam. Pt declined to schedule due to availability. Allergies As of Date: 01/21/2024 (No Known Allergies) Date Reviewed: 01/20/2024 Reviewed by: Vivienne Ordaz MA - Fully Assessed Reason for Visit: Appointment [186] Problem List As Of Date: 01/21/2024 (None) Encounter Status:Closed by JOANNE LIM on 01/21/24 [facility] CNOVon 01-20-2024 CNOV Office Visit (INMAVN ) SYLVIA BARKSDALE ([id number]) 1970 F Date Time Provider Department 01/20/24 5:00 PM DWAIN PRECIADO INORVSandeep During your visit today, we recorded the following information about you: Pulse Blood pressure 80/minute 117/74 Dwain Preciado DO 01/20/2024 5:37 PM Signed CC: Sylviapaulina Barksdale is a 53 year old female who presents for establish care. HPI: 53 y/o female with a h/o tobaco use disorder presents for physical and to seek second opinion on left groin mass. Currently taking no prescribed medications. Describes an issue with diffuse lymphadenopathy (groin, neck, axilla) in September 2023. She had preceding sxs of viral illness ( a flu ). She is currently taking a supplement called Super Lymphatic Cleanse. Left inguinal hernia----was scheduled to see Dr. Landers on 12/09/23 but missed appt due to concerns she had for ongoing infections (?) related to her LAD. Her symptoms include months of left groin pain with intermittent bulge. Patient reports historically having inguinal hernia repair x2 with mesh to this area. She had CT A/P without contrast at [facility] with written report today that demonstrated no pathology in her left groin. The pain is worse with activity. Tobacco use disorder---smokes ~1 ppd. Not interested in quitting. Drinks EtOH socially. Family hx updated in EMR, includes colon cancer in father and brother. 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 Stays active with odd jobs. Has labs from [facility] in October 2023 visit including LDL cholesterol. Apart from mild neutrophilic leukocytosis, rest of CBC, CMP, TSH, vit D, and lipid panel wnl REVIEW OF SYSTEMS GENERAL: No weight loss, malaise or fevers HEENT: Negative for frequent or significant headaches, No changes in hearing or vision, no nose bleeds or other nasal problems NECK: Negative for lumps, goiter, pain and significant neck swelling RESPIRATORY: Negative for cough, hemoptysis, wheezing, or shortness of breath CARDIOVASCULAR: Negative for chest pain, leg swelling, or palpitations GI: No nausea, vomiting, or diarrhea : No history of dysuria, frequency or incontinence MUSCULOSKELETAL: See HPI SKIN: Negative for lesions, rash, and itching PSYCH: Negative for sleep disturbance, mood disorder and recent psychosocial stressors HEMATOLOGY/LYMPHOLOGY: Negative for prolonged bleeding, bruising easily or swollen nodes ENDOCRINE: Negative for cold or heat intolerance, polyuria, polydipsia and goiter NEURO: No history of headaches, syncope, paralysis, seizures or tremors Past Medical, Surgical, Family, and Social History reviewed with patient and in [facility] Medications and Allergies reviewed with patient and in [facility] BP 117/74 Pulse 80 KP PHYSICAL EXAM: General appearance: Well appearing, alert, in no acute distress, well-hydrated Skin: Skin color, texture, turgor normal, no suspicious rashes or lesions Head: Normocephalic, no masses, lesions, tenderness or abnormalities Eyes: Anicteric sclera. Extraocular movements are intact. Neck: Supple, no adenopathy; thyroid symmetric, normal size Lungs: lungs clear to auscultation. No wheezing, rhonchi, rales Heart: RRR without murmur Groin: Examined with female sheetrock applicator. Small, ~2cm in diameter palpable mass to left inguinal area that is tender and firm. Not easily reducible Abdomen: Abdomen soft, non-tender. No masses, organomegaly Extremities: No deformities, edema, skin discoloration, clubbing or cyanosis Musculoskeletal: No joint swelling, deformity, or tenderness Neuro: Gait normal. ASSESSMENT/PLAN: 1. Annual physical exam - ICD9: V70.0, ICD10: Z00.00 (primary diagnosis) - Counseled on healthy diet and regular exercise 2. Special screening for malignant neoplasms, colon - ICD9: V76.51, ICD10: Z12.11 - COLONOSCOPY SCREENING 3. Encounter for screening examination for other mental health and behavioral disorders - ICD9: V79.8, ICD10: Z13.39 - ANXIETY SCREENING 4. Screening for depression - ICD9: V79.0, ICD10: Z13.31 - DEPRESSION SCREENING 5. Left groin mass - ICD9: 789.39, ICD10: R19.09 - Possible hernia, eval with US and refer to gen surg per patient request - US HIP LEFT - CONSULT TO GENERAL SURGERY 6. Tobacco use disorder - ICD9: 305.1, ICD10: F17.200 - Cessation encouraged. Patient not contemplating quitting at this time - Physiologic and physical aspects of tobacco addiction as well as strategies for quitting were discussed. - Counseling was given 3 minutes. F/u in 6 months to address rest of health maintenance tasks including routine cancer screening. May schedule CSY today Dwain Preciado DO January 20, 2024 5:05 PM This note was partially generated using Fancred voice recognition system, and there may be some incorrect words, spellings, and punctuation that were not noted in c (more content not included)... Normal [facility] CNPNon 01-20-2024 CNPN Telephone (INMAVN) SYLVIA BARKSDALE ([id number]) 1970 F Date Time Provider Department 01/20/24 DWAIN PRECIADO INCHAPINCITO During your visit today, we recorded the following information about you: Felicity Santiago 01/20/2024 5:53 PM Signed Pt has order for US Hip I am directed to refer to you for scheduling. Allergies As of Date: 01/20/2024 (No Known Allergies) Date Reviewed: 01/20/2024 Reviewed by: Vivienne Ordaz MA - Fully Assessed Problem List As Of Date: 01/20/2024 (None) Encounter Status:Closed by FELICITY SANTIAGO on 01/20/24 Normal [facility] Nayana 12-06-2023 CNPN Telephone (GENSAV) CEMSYLVIA M ([id number]) 1970 F Date Time Provider Department 12/06/23 MINE HERNANDEZ GENSAV During your visit today, we recorded the following information about you: Mine Hernandez, RN 12/06/2023 1:28 PM Signed Spoke with patient as I referred the scanned documents and wanted more information. Per patient she has a hernia in the groin again and it has been repaired at least 3-4 times per patient. I informed patient that if this is the case then she needs to see Hernia team as would be considered complex due to those numerous repairs. Patient voiced understanding. Patient then states she has some groin lymph nodes and other enlarged lymph nodes and was supposed to see Internal Medicine for a work up and that this is her primary focus and does not want to see anyone around where she lives as she feels it is very complex. I informed patient I dont see a referral for IM but again if having involved issues she may want to see someone at ( patient would prefer one location of services). Informed I am cancelling appt for Saturday and I will see if our rehabilitation aide/scheduler can reach out to for an appt as she wants that appt first before a hernia Team appt. Tawnya Chi 12/16/2023 3:24 PM Signed Was speaking to the patient and she hung up on me. She stated that she does not want to be seen at [facility]. Royce Gonzalez 12/18/2023 10:58 AM Signed Spoke with pt, appears call dropped with Tawnya. Have her setup to [facility] care with Dr Preciado in December. She is looking to establish to get some answers on what is going on with her body. Allergies As of Date: 12/06/2023 (Not on File) Date Reviewed: Never Reviewed Problem List As Of Date: 12/06/2023 (None) Encounter Status:Closed by MINE HERNANDEZ on 12/06/23 Normal [facility] ED Note-Physicianon 11-29-19 ED Note-Physician ED Note-Physician Basic Information Time Seen: Marivel MELÉNDEZ Tawnya Sandeep 11/14/2023 15:29 Chief Complaint pt has had abd pain and swelling for a few months. says she needs ct scan History of Present Illness 53 yo female presents to the ED with a left sided inguinal hernia. Pt states she has had the hernia repaired 2 times now and it has come back again. Pt received these surgeries from an outside hospital system, she is unaware which organization it is. Pt explains that she has been having an ongoing problem with insurance and states she needs a CT scan today for insurance approval for her next hernia repair. Pt describes pain from her hernia that radiates down her left leg and across her stomach. She has no bowel or bladder concerns, however the hernia causes increase pain with straining to use the bathroom. Upon exam pt has a palpable left sided inguinal hernia. Patient has fevers, chills, nausea, vomiting. No constipation, having regular bowel movements. Review of Systems All organ systems are reviewed. Pertinent positive and negative findings as mentioned in the HPI. Physical Exam Vitals & Measurements T: 37 ?C(Oral) HR: 66(Peripheral) RR: 18 BP: 110/75 SpO2: 98% HT: 162.56 cm WT: 48 kg BMI: 18.16 General: alert, no acute distress Skin: warm, dry Head: no trauma, normocephalic Cardiovascular: regular rate and rhythm, normal peripheral perfusion Respiratory: Lungs CTA, respirations non labored Gastrointestinal: soft, non distended, no tenderness, no guarding. Palpable mass of the left groin, mildly tender to palpation, no overlying skin changes Back: No tenderness, Normal ROM, Normal alignment. Extremities: no deformity, no trauma Neurological: pt awake and alert Psychiatric: affect appropriate for age, normal judgement Assessment/Plan 1. Encounter for medical screening examination (Z13.9: Encounter for screening, unspecified) 2. Lt groin pain (R10.32: Left lower quadrant pain) 53-year-old female presents to the ER with concern for left-sided inguinal hernia. History of the same complaint has had 2 surgical repairs at an outside hospital. In the ER patient is afebrile vitals are stable, nontoxic-appearing. Labs were ordered, patient declined stating she had labs drawn a couple of weeks ago. CT scan with IV contrast was ordered, patient declines contrast as well. Patient states that she is just here to get a CAT scan. It was discussed with the patient that she did she go to the emergency department and an emergency room workup was ordered to rule out things such as incarcerated hernia or bowel obstruction. Patient states that she only went to CT scan and declines blood work and IV contrast and to request her IV be removed. Imaging reviewed, no acute pathology. Results are discussed with the patient. She is discharged home to follow-up with general surgery and PCP. She is to return to the ER with any new or worsening symptoms. Disposition Plan Patient Discharge Condition Improved, stable Discharge Disposition To home Discharge Prescription List Prescriptions No active prescription medications Follow-up With When Contact Information Yuri LEA In 3 days 11/17/2023 EDT [address], [address] [place] [phone]- Business (1) Additional Instructions: CRISTIANE JEREZ In 3 days [address] [facility] [place] [phone] [facility] (1) Additional Instructions: Patient Education Abdominal Pain, Adult Attestation Patient was treated and evaluated by the Physician Lace Winder. The attending physician was in the Emergency Department at all times and supervised care. The case was discussed with the attending physician and diagnostics were reviewed as needed. The patient was evaluated by myself, Tawnya Orta PA-C, and the medical student. I personally performed the exam and obtained the history from the patient in conjunction with the medical student. Problem List/Past Medical History Ongoing Smoker Historical No qualifying data Medications Inpatient NS 1000 ml Bolus, 1000 mL, IV, Once Home No active home medications Allergies No Known Medication Allergies Social History Alcohol Current, 1-2 times per week, 11/14/2023 Substance Abuse Tobacco 10 or more cigarettes (1/2 pack or more)/day in last 30 days Tobacco Use:. Cigarettes, 11/14/2023 Lab Results Patient declined blood work Diagnostic Results CT Abdomen/Pelvis w/o Contrast 11/14/23 16:43:11 IMPRESSION: NO ACUTE INTRA-ABDOMINAL PROCESS IDENTIFIED. CLINICAL HISTORY: ABDOMINAL PAIN, ACUTE, NONLOCALIZED. COMPARISON: None available. TECHNIQUE: Spiral unenhanced images were obtained of the abdomen and pelvis without contrast. All CT scans at this facility use dose modulation, iterative reconstruction, and/or weight based dosing when appropriate to reduce radiation dose to as low as reasonably achievable. Unless otherwise stated, incidental findings identified i (more content not included)... Normal [facility] Comment on above: Result Comment: Elec tronically Signed By: Tawnya Orta PA-C\.br\Date and Time Signed: 11/14/23 17:12 EDT\.br\Electronically Co-Signed By: Joe Pollack MD\.br\Date and Time Co-Signed: 11/29/23 10:19 EDT Coding Summary.on 11-18-2023 Coding Summary. IJTSIewq71MIs0tVq+PG hlYWQ+PE1 NZVGiE05afSLqxU9aY2LLJLsYXujs DUDBOOrAUnTvmhRtTN8feEPsYJBy IC8+QL5yTVKrTtvnwIZfk5K5mMR4G 97kcg6cYZgvuID6DGWeNaFxkmsni2 atmRs4JGgeKtskMdXk VFCfcK30PWS5jN38Kl14xNDicCKsv 0jnrHi9LnVyDFKmWMM9uCjsHZxam2 GbAEKpT77wjVFht8R4 CQIroFtfxHAdAgEaiZI9tM6jBSknx wnmk1oulrsuPrn5zk08dRTvu9O8eT T4O0WefdP3FAVzzQIp ZefzwOZFhH4ntlbpk4leewqoOqNqA HPeBZm1UZm4IFEviWtwGqDcLN08QV E7XLLinzDvM6XnKXLb mZluHiB2f6H0He3LH2QYFcyrK1BAH UFSWTwvdGQ+XS68ua55F8EaPyzjZn q3QVVhVDX0gOF5pL7r EEKdOQvtx6H2zWR1X1DkldKdss7cq 8qxQFDxVOkzU12ynSRib4K9NVYmrP U1UILioGczDbYltR92 Oyc+JYWwdTaiw4GiCzvbb0xfb9eli Nh6KmyoYFGyutKdhHypYKY6r2ToYs 5lGHGibKS2cGG9vT0h HkRbNvU6JPmqC615NtDyiQWyGpavD 90mM2RjzID+YEAsPzw5IDFhaTfaWB 9zO3TvHATzjwvpzTYw nOgvFT4pYMHdbzkhGLSjvV5kKOGfQ 4m4AwZqDsN4YJsmD5KvTJMzuhbkMj 36hM3cQbQpAfK7VIzl N9BdrcV9GPSibFNuDIagWGV1T91mc 7I9AHEmWNTyYOV2kAR5lP1muUljrg ogbGVmdDsgdmVydGlj OLiqMKxoS078FAPpyVuxAlLfDQojV yBEYXRlOiAgMDYvMjQvMjAyNDwvdG Q+NTHbAPF8mRusSJIp tUCmKEhgQc8tyFegeRpgWK4nXZWpp nzySRUspH4vAZHuxYIbsDtqZZ2uOZ Odlqaod186JiDqCPX1 JYDywGGpY1ApeL5qUuCrLQCaDFYrM 6FkkMEkKIchJ306TQswTvA2RCDmfq KcU4HbTXWgbPofNgW0 g1D3Tp9Ml6FqfehqM2GqxEIbEaXyI bseSOx8U6LoNcdgyUR+JF18DQGnOR 62PGc3SHS3mEioWJqm QGRdR7LdkL2cXaQiMRZmTLGlPuk+P HRhYmxlIHdpZHRoPScxMDAlJyBzdH zmJC0oAv9yFKWoXDRc eJuueEXmOmWme2bhGTBePExfRE0bs OcrF6FpaAF8ECEtw8o5Vr05C70gI7 JvdXA+DWMkkXA0vPP3 dN7zWqZzJdK7OSyoL201RtMrrKNaL hmbl7wzb8iwyYd8SzE8YVBtpgTqqX ajWUZ7l8FkAc48O67j XQizNEPeOPUdCQTmQXIcrXnnml6jr G9wIi8+VTEuxCE0lJG7mO7sCvQxNy E9YElxU097WgKcqUTt Wrocu0itg2kriFc3IfJiMLOxioByq RqsMWV4d9AhUw11H8KxrOdqq1WyUp v3ln84rIKfz0L7gXB6 L9OyAAWseosgpLEdrZoaBW4aRRKrz lpxJZSpiF1vJFOmH2r1LgSiCcM1YC acD1EdpoL7FAKdnNEi WYNnlXQMpJ9ianbpo8yrwnzfYpYgM NQcLHz3ACl8QTCuxCtiVpLeBLF9Zh K0EQA0tTOtqS7wkHhg lirenH8eCzw+TAT6aHTsvJJMQZ5yX jwvdGQ+HRCrHQO9bHtoIKvhBSEdoB 2tYJXiE1v9YpInZvD9 DCgbJ1PqffK1AGFnjPTuVCGwbGSKh D0gdcsdv2lnrpnzPsDnOXQmOGe8ZG w9FZPoyXjuEfBxBMI0 VoL8HQH5bWUgxX1ynRqrajcxpP3hP yc+SyxdkCckYIQ5PHl7X7EmZdc9LH DzqLjjDJ7cvRQbMSpf Yt6krRbtgRlrVA6iTOPmcwumi272Z nIhj6dzNURciLFmQIqwMQB0Y67zg6 Z2USPaHGZdHTM4uDG1 lW8leThzztcbnSMnfDgfugVxnYbwO VfxNRbvF748BDKneFlxSaPiNJo7K5 IwLgk1ZSRrgJzkKY4k yCNpSZlcIn8bqIuanMcvPD2fSKWqc gwyo215MfTmf2ajYEGgsAApVDzoNX W0G35wy1R5XCUyISAr VZT8aKD4nH5nhJghckrmmGNvtBemm uGqgTgbGClkEKcrE430SUFdkVabLl RzrYf8H7IbUii4ORWq yJghQO4ufRZsXUurUv4khNvhxTxmZ K8aCLXbjtpsd329GsNnb5jcIBUmgN StOWdaLCP1N64pm6R8 UEBiGZQyBZT3dER2gH1fxAmuqflpl IVbwAlkhkCkfGwjSHveIHncJ366FD RvcDsnPlBhdGllbnQg SQbeEFh6N3XvPdsvwOM+BA53ZRHcJ X44zEJyaSCej3qhvBl5FoWkNWYpXH N1jVyuRLiqf5OeZNOo H79eaIIai0X4VBIduVnfbPIfCeDid LH3kR4gVElbdfydi5okmoypYrkmj5 iioi35oY85V87vMDmt CJQfEJWtITAvUHOfxQxlbx9oyN1dN i8+AWUhlTA1bPZ8nG0oXOQkUsU9OF jnQ483GyIxqEXhNvdx u6nar1hjxLv0GwM0OFSrtsFjuKzzT RM2x3IkWg14J13tJJgeUPCxIOKrSO StWPRxlDczcb0inX0i Ii8+AJKhcSY3wGC1xU5jHcSkBqD4Z MzcN197UoMexASaVlavH09pF2FhfK A+CRPlHkf5YWEofPgr TB8fpTFuMDzaFe6fMLV9AiDhHrJtM WusY0GsHIWowzowkqmjzJE3OKLtIQ QepL30Rf8stSvhVUEv oWUXbR3kxkfso2pzrujbXfOtEYEwT Zr2REc4PWYclTagCiZfGXI3WgU9UL D6yWAtvL5psJaclted yT5vN5GiGOHbsntwCy27rX5zYnQyV lU6PZtfEjx+YEKTPU0WDMkhTIaBTe BVPIWNHA05SP06dXRm i8F3iGV7B3ZsXDAwkuwwquhgcAU8Q FNtLVIptH92rKRqEFvsOp7sl9D8b2 98IRTaAEBcoK56Uz8p cFzkDNMclSQKgR8ttmavv1gpnwijY cSkGUSjHYy3IBt7BKCilEglYnVbIB U0FvN5HBY3iVCzpI0g kShfvskhaT5uYwt+ONDgEHZdZNx9U TwvdGQ+OGDpDVF5pCvtCJgrZWNpjP 2eFJKgU1a3FxUpVjT3 YVyvK7MgVEBcxkdsBb40iJ9pStEsM wW9XXtfN7RexyF1ACOdzMJhUSijBY G9I06ya4E9PUElVMCg FWT8hMJ0dD7nnCyrhbknpVObkStpw cBchInlPOacUUhsJ586PDMdySlnTo M1BZviVRKvDL91DC36 zRTln5T0fGF6I4MsYRSauvjekhupg EF1UQQhKYOfcS27tVBtENtzEv0ba4 U0m431VWGsKYAjvY11 Hk2zbRjgRIGylEWHrK6xxlaxm3xqa lueIaBxFTRuLAw0CSa7QKNvpXgeYq VsWYI5MvS1QYT3vTQb mB6ztJlaujxhaX6ePxx+RmVtYWxlP B33UL58uHKoh1X9yHW4U0PnWFRlcr jmddiecEN0BFYnBHVv eM33oHBnEJtpMf4sl5R5g039YOHtF YZqeP98Rs2xpBipNUAusVTRvP2wov nsk0jhoygfOpMfWTJa TEx2YVw2TTYfyLtuVsIzOIX8OdF1C HE2yAYqlG9rpFjvqhbspF8kQru+RW 9onkbwumE1PJ10ZD31 C6XnOdefkJFvvPA+PHRhYmxlIHdpZ UCpWSwvNYNvYuEuwOpbUS8hFc3wWC VyLWNvbGxhcHNlOiBj x7csSOYlZYdbBM2rdZqeL6FgyVP2S QSil5d1Dk14B97bW8JnkZO+PGNvbC Q0zAN1jT7jUnNnRfU5 EQkpB185GlIxjMTdXhczs2hyl9obm Jn3RiKvWLIrzwQzcHlnZCG0b4WpGn 28M70cNKppWQIkSNOh PRJbRNPifZjcrh6wdK5vAe8+PGNvb SS3xXT5dL6zZsHmYgA2CTotG480Dm TatPAnNleeL62wF3Wv dXA+UIMxGei8XALtuZwkIB0zrEFlM VnnEj8mZKD8UkIzFlDwZPazW7TdXZ RxzmyiilugsQT8ETSx JCUhaF54Fb9dxTpwKa5hZIIzXBI4O UFnoGBgK8SnlE1nGhZnSJUyVAEqC1 HbbSFvRXssT214MWop PwM3ANBzveKdV3RnGZPkxHpdVvT8y 6Q6Xs3LsZdgnBPaPB4wMbRfGDm9I2 YyMug1TAFegFnpSP1m cBHcFBzkNl2oiXqzwDmnRB6xSTPcs rqrj216XsAzj9nmEMBjwCNaBMmfHX D2K77ka6S2WFAtAVBy PTK8qTB4nZ4bxVmnlbvjlRPftMwjz qQtyGjkPCmvIYshD070JTBvjOibJc FXRrh9U9MhDlr1LNVr nKinFH3xvCKhTKttEw5szKrenXfzU O0xTWUoassjl566FkEil9rcHMQxwM OoNIszHAW5S17so4E8 IONsUJPvMZJ3dEC8pO6wxJkpeyvxx YJxjTcklkSlfTlgZDfhQHuyH456JT UukNxiLx6NPef8H0To Epv9YJBuoRytSR9obJRnOBkkZn0mg AjlgKkrOI5oPDLfpwtie369IvRxr0 xkIDEwcHQgVGltZXM7 F19ur9Y5LQMvXPXhFAW4zXB7pV8nc GlnbjogbGVmdDsgdmVydGljYWwtYW aqY612HUFrvAjvLmEt eWVyOjwvdGQ+SZ80qu64N0IxUexpS ba9IJElYFV4fGR8eG4kQZUpBKnki5 U0mNJ9H9AqrfDwsd6u g9szLCGpEDpdV (more content not included)... Normal [facility] Outside Consultationon 11-14 Outside Consultation [id number] Normal [facility] CT Abdomen/Pelvis w/o Contra ston 11-14-2023 CT Abdomen/Pelvis w/o Contrast Exam Date/Time: 11/14/2023 16:32 EDT Reason for Exam: ABDOMINAL PAIN, ACUTE, NONLOCALIZED;Other (please specify) Report IMPRESSION: NO ACUTE INTRA-ABDOMINAL PROCESS IDENTIFIED. CLINICAL HISTORY: ABDOMINAL PAIN, ACUTE, NONLOCALIZED. COMPARISON: None available. TECHNIQUE: Spiral unenhanced images were obtained of the abdomen and pelvis without contrast. All CT scans at this facility use dose modulation, iterative reconstruction, and/or weight based dosing when appropriate to reduce radiation dose to as low as reasonably achievable. Unless otherwise stated, incidental findings identified in this report do not require routine follow-up imaging. FINDINGS: Liver: No enlargement, significant fatty infiltration, or suspicious lesion identified without contrast. Biliary: The gallbladder is unremarkable. No abnormal biliary ductal dilatation. Pancreas: No mass, organized fluid collection, or abnormal pancreatic ductal dilatation. Spleen: Not enlarged. No mass identified without contrast. Adrenals: Unremarkable. Kidneys: Unremarkable. No significant urinary tract calculi or mass. GI tract: No abnormal dilation or wall thickening. Moderate sigmoid diverticulosis. The appendix is not confidently identified, without findings to suggest acute appendicitis. Lymph nodes: No pathologically enlarged lymph nodes. Mesentery/peritoneum: No organized fluid collection, ascites, focal inflammatory changes, or mass. Retroperitoneum: No organized fluid collection, focal inflammatory changes or mass. Vasculature: No aneurysm. Mild calcified atherosclerotic plaquing. Pelvis: The urinary bladder, uterus, and adnexa are unremarkable. No mass, organized fluid collection, or ascites. Bones/soft tissue: No acute osseous findings identified. Mild to moderate degenerative changes, predominantly of the lumbosacral junction. Lower thorax: Noncontributory. Report Ordering Provider: Salbador Lebron FINAL REPORT Dictated: 11/14/2023 4:40 pm Joshua Cobos MD Signed (Electronic Signature): 11/14/2023 4:40 pm Signed by: Joshua Cobos MD Transcribed by: CHRISTOPHER Technologist: GUILLERMO Technical Comments Rectal Contrast Given? No Oral contrast amount in ml's: 0 Normal [facility] Consent for Treatmenton 10-26 Consent for Treatment [id number] Normal [facility] Discharge Instructionson Discharge Instructions [id number] Normal [facility] ED Clinical Summaryon 2023 ED Clinical Summary [address] [address] ED Clinical Summary Person Information Name: SYLVIA BARKSDALE [facility] Age: 53 Years : 1970 Sex: Female Language: Thai PCP: OLEG SERVIN, CRISTIANE Mercado Marital Status: Unknown Visit Id: Visit Reason: Abdominal pain; ABD PAIN Speciality: Acuity: 3 Enc Type: Emergency Med Service: Emergency Arrival: 11/14/2023 14:40:57 Discharge: 11/14/2023 16:59:16 LOS: 000 02:19 Checkin: 11/14/2023 14:40:57 Checkout: 11/14/2023 16:59:16 Dispo Type: Home (Routine DC) EVENTS: Event Name Event Status Request Date/Time Start Date/Time Complete Date/Time Arrive Complete 11/14/2023 14:40:57 11/14/2023 14:40:57 11/14/2023 14:40:57 Document Home Meds Request 11/14/2023 14:40:57 Triage Complete 11/14/2023 14:40:57 11/14/2023 15:11:50 11/14/2023 15:11:50 Bed Assign Complete 11/14/2023 15:05:15 11/14/2023 15:05:15 11/14/2023 15:05:15 Dr Exam Complete 11/14/2023 15:05:15 11/14/2023 15:24:16 11/14/2023 15:24:16 RN Exam Complete 11/14/2023 15:05:15 11/14/2023 15:34:10 11/14/2023 15:34:10 CT Cancel 11/14/2023 15:13:26 11/14/2023 16:17:47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 11/27/2017 7:34 PMNote Text:CHIEF COMPLAINT: leukocytosisHISTORY OF PRESENT ILLNESS: Sylvia Khan is a 47 year old female wholeukocytosis. Notes she has been told this has been told of this for sometime, also notes left sided adenopathy, mainly neck and femoral nodes.Denies med changes, recent illness. She is a smoker.PAST MEDICAL HISTORYDiagnosis Date- Arthritis- Depression- Elevated WBC count- Varicose vein of leg bilateralNo past surgical history on file.Review of Social History includes:Social History Marital status: Spouse name: Years of education: Number of children:Social History Main Topics Smoking status: Current Every Day Smoker Packs/day: 1.00 Years: 30.00 Types: Cigarettes Smokeless tobacco: Never Used Alcohol use: Yes Comment: rarelyFAMILY HISTORYProblem Relation Age of Onset- Multiple Sclerosis Mother- Heart disease Father- varicose veins [OTHER] FatherCurrent Outpatient Prescriptions:acetaminophen 325 mg cap Take by mouth.No current facility-administered medications for this visit.REVIEW OF SYSTEMS:Constitutional: No fever, night sweats or weight has been stableHead and neck: No neck stiffness or goiter.Respiratory: No cough or hemoptysis.Cardiovascular: No chest pain or palpitations.GI: No nausea, vomiting, diarrhea or GI bleed.Skin: No rash or lesions.Neurologic: No focal weakness or sensory changes.Psychiatric: Normal affect.Endocrinology: No diabetes or thyroid disease.Hematopoietic: No easy bruising or enlarged lymphadenopathy.: No frequency or dysuria.Lymph: has had swelling of lymph nodesPHYSICAL EXAMINATION:BP 95/55 Pulse 64 Temp 36.4 ?C (97.6 ?F) (Oral) Resp 18 Ht 163cm (5' 4.17 ) Wt 49 kg (108 lb) LMP 11/13/2017 SpO2 100% BMI18.44 kg/m?General appearance: well appearing, alert, in no acute distress,well-hydrated, well nourishedSkin: skin color, texture, turgor normal, no suspicious rashes or lesionsHead: normalEyes: Anicteric sclera. Pupils are equally round and reactive to light.Extraocular movements are intact.Oropharynx: negativeNeck: Supple, no adenopathy; thyroid symmetric, normal sizeLymph Nodes: left supraclavicular node notedBack: no tenderness to palpationLungs: clear to auscultation, no wheezing or rhonchiHeart: Negative. RRR without murmur, gallop, or rubs. No ectopy.Abdomen: Normal abdominal exam, Abdomen soft, non-tender. Bowel soundsnormal. No masses, organomegalyExtremities: Extremities normal. No deformities, edema, or skindiscoloration. Good capillary refill.Musculoskeletal: No joint swelling, deformity, or tenderness.Peripheral pulses: NormalResults for SYLVIA KHAN ( ) as of 11/27/2017 19:28 Ref. Range 11/26/2017 15:43WBC Latest Ref Range: 3.70 - 11.00 k/uL 16.68 (H)RBC Latest Ref Range: 3.90 - 5.20 m/uL 3.89 (L)Hemoglobin Latest Ref Range: 11.5 - 15.5 g/dL 12.9Hematocrit Latest Ref Range: 36.0 - 46.0 % 36.7Platelet Count Latest Ref Range: 150 - 400 k/uL 325ASSESSMENT/PLAN: Sylvia Khan is a 47 year old female withleukocytosis. Reviewed possible causes and contributing factors. Reviewedgeneral approach to evaluation- patient expreessed understanding andwishes to move forward as noted Below.1. Leukocytosis:- may be multifactorial with smoking as possible contribute- check flow cytometry with as elevated lymphocytes are noted- consider neck imaging based on results of evaluation- consider peripheral blood testing for myeloproliferative disorders if noabnormality noted aboveKam Parish MD Normal [facility] CNOVSPon 11-26-2017 CNOVSP Visit (SP) Office ([place]) -SYLVIA KHAN ([id number]) 1970 FDate Time Provider Department11/26/17 4:00 PM KAM PARISH During your visit today, we recorded the following information about you: Temperature Pulse Respiration Blood pressure 97.6 degrees 64/minute 18/minute 95/55 Weight Height Last Period 49 kg 1.63 m 11/13/17Kam Parish MD 11/27/2017 7:34 PM SignedCHIEF COMPLAINT: leukocytosisHISTORY OF PRESENT ILLNESS: Sylvia Khan is a 47 year old female wholeukocytosis. Notes she has been told this has been told of this for some time,also notes left sided adenopathy, mainly neck and femoral nodes. Denies medchanges, recent illness. She is a smoker.PAST MEDICAL HISTORYDiagnosis Date- Arthritis- Depression- Elevated WBC count- Varicose vein of leg bilateralNo past surgical history on file.Review of Social History includes:Social History Marital status: Spouse name: Years of education: Number of children:Social History Main Topics Smoking status: Current Every Day Smoker Packs/day: 1.00 Years: 30.00 Types: Cigarettes Smokeless tobacco: Never Used Alcohol use: Yes Comment: rarelyFAMILY HISTORYProblem Relation Age of Onset- Multiple Sclerosis Mother- Heart disease Father- varicose veins [OTHER] FatherCurrent Outpatient Prescriptions:acetaminophen 325 mg cap Take by mouth.No current facility-administered medications for this visit.REVIEW OF SYSTEMS:Constitutional: No fever, night sweats or weight has been stableHead and neck: No neck stiffness or goiter.Respiratory: No cough or hemoptysis.Cardiovascular: No chest pain or palpitations.GI: No nausea, vomiting, diarrhea or GI bleed.Skin: No rash or lesions.Neurologic: No focal weakness or sensory changes.Psychiatric: Normal affect.Endocrinology: No diabetes or thyroid disease.Hematopoietic: No easy bruising or enlarged lymphadenopathy.: No frequency or dysuria.Lymph: has had swelling of lymph nodesPHYSICAL EXAMINATION:BP 95/55 Pulse 64 Temp 36.4 ?C (97.6 ?F) (Oral) Resp 18 Ht 163 cm(5' 4.17 ) Wt 49 kg (108 lb) LMP 11/13/2017 SpO2 100% BMI 18.44kg/m?General appearance: well appearing, alert, in no acute distress, well-hydrated,well nourishedSkin: skin color, texture, turgor normal, no suspicious rashes or lesionsHead: normalEyes: Anicteric sclera. Pupils are equally round and reactive to light.Extraocular movements are intact.Oropharynx: negativeNeck: Supple, no adenopathy; thyroid symmetric, normal sizeLymph Nodes: left supraclavicular node notedBack: no tenderness to palpationLungs: clear to auscultation, no wheezing or rhonchiHeart: Negative. RRR without murmur, gallop, or rubs. No ectopy.Abdomen: Normal abdominal exam, Abdomen soft, non-tender. Bowel sounds normal.No masses, organomegalyExtremities: Extremities normal. No deformities, edema, or skin discoloration.Good capillary refill.Musculoskeletal: No joint swelling, deformity, or tenderness.Peripheral pulses: NormalResults for SYLVIA KHAN ( ) as of 11/27/2017 19:28 Ref. Range 11/26/2017 15:43WBC Latest Ref Range: 3.70 - 11.00 k/uL 16.68 (H)RBC Latest Ref Range: 3.90 - 5.20 m/uL 3.89 (L)Hemoglobin Latest Ref Range: 11.5 - 15.5 g/dL 12.9Hematocrit Latest Ref Range: 36.0 - 46.0 % 36.7Platelet Count Latest Ref Range: 150 - 400 k/uL 325ASSESSMENT/PLAN: Sylvia Khan is a 47 year old female with leukocytosis.Reviewed possible causes and contributing factors. Reviewed general approach toevaluation- patient expreessed understanding and wishes to move forward asnoted Below.1. Leukocytosis:- may be multifactorial with smoking as possible contribute- check flow cytometry with as elevated lymphocytes are noted- consider neck imaging based on results of evaluation- consider peripheral blood testing for myeloproliferative disorders if noabnormality noted aboveAlfred QI Manueleferreden Provider: CÉSAR SUE [[id number]]Allergies As of Date: 11/26/2017(No Known Allergies)Date Reviewed: 11/26/2017Reviewed by: Lorena Pike - Fully AssessedReason for Visit: elevated WBC [Other] Cmt: follow upPrimary Visit Diagnosis:Other elevated white blood cell (WBC) count [D72.828]Order(s):PERIPHERAL BLOOD LOW GRADE LEUK MARKERS FC [SQPBLGLY] Order #: [id number] FUTURE LD LACTATE DEHYDRO [SQLD6] Order #: [id number] FUTUREDisposition: Return in about 1 week (around 12/03/2017).Follow-up and Disposition History RecordedPrescriptions as of 11/26/2017 Sig: ACETAMINOPHEN 325 MG CAPSULE Take by mouth.Problem List As Of Date: 11/26/2017(None)Encounter Status:Closed by KAM PARISH MD on 11/27/17 Normal [facility] Comp Metabolic Panelon 11-26 Alanine aminotransferase (ALT) 19 U/L Normal 7-38 [facility] Comment on above: Performed By: #### Dakota TEAGUE, CMP ####[place] [address] [place], [place] [phone] Albumin 3.9 g/dL Normal 3.9-4.9 [facility] Comment on above: Performed By: #### W , CMP ####[place] [address] [place], [place] [phone] Alkaline phosphatase (ALP) 48 U/L Normal 32-117 [facility] Comment on above: Performed By: #### Dakota TEAGUE, CMP ####[address] [phone] Anion gap 11 mmol/L Normal 9-18 [facility] Comment on above: Performed By: #### W , CMP ####[place] [phone] Aspartate aminotransferase (AST) 24 U/L Normal 13-35 [facility] Comment on above: Performed By: #### W , CMP ####[place] [phone] Bilirubin (total) mg/dL Low 0.2-1.3 [facility] Comment on above: Performed By: #### W , CMP ####[place] [phone] Calcium 8.9 mg/dL Normal 8.5-10.2 [facility] Comment on above: Performed By: #### Dakota TEAGUE, CMP ####[place] [phone] Chloride 107 mmol/L High 97-105 [facility] Comment on above: Performed By: #### Dakota TEAGUE, CMP ####[place] [phone] CO2 22 mmol/L Normal 22-30 [facility] Comment on above: Performed By: #### W , CMP ####[place] [phone] Creatinine 0.69 mg/dL Normal 0.58-0.96 [facility] Comment on above: Performed By: #### W , CMP ####[place] [phone] eGFR (non-black) mL/min/{1.73_m2} Normal [facility] Comment on above: Result Comment: eGFR (Estimated GFR) Units of measure: mL/min/1.73 meters squaredeGFR is derived from the reexpressed MDRD Study equation using the following parameters: serum creatinine, age, gender and race. The creatinine assay has been calibrated to be traceable to IDTN.An eGFR <60 mL/min/1.73m2 for >3 months is consistent with chronic kidney disease. Refer to KDOQI guidelines for clinical interpretation.In patients with unstable renal function, e.g. those with acute kidney injury, the eGFR may not accurately reflect actual GFR. Performed By: #### W SR, CMP ####[facility] [place], [place] [phone] eGFR- Amer. >60 Normal [facility] Comment on above: Performed By: #### W SR, CMP ####[address] [phone] Glucose mass conc 116 mg/dL High 74-99 [facility] Comment on above: Result Comment: The [place] Diabetes Association (ADA) provides guidance for cutoff values for fasting glucose and random glucose. The ADA defines fasting as no caloric intake for at least 8 hours. Fasting plasma glucose results between 100 to 125 mg/dL indicate increased risk for diabetes (prediabetes).Fasting plasma glucose results greater than or equal to 126 mg/dL meet the criteria for diagnosis of diabetes. In the absence of unequivocal hyperglycemia, results should be confirmed by repeat testing. In a patient with classic symptoms of hyperglycemia or hyperglycemic crisis, random plasma glucose results greater than or equal to 200 mg/dL meet the criteria for diagnosis of diabetes.Reference: Standards of Medical Care in Diabetes 2016, [place] Diabetes Association. Diabetes Care. 2016.39(Suppl 1). Performed By: #### W SR, CMP ####[facility] [place], [place] [phone] Potassium molar conc 4.3 mmol/L Normal 3.7-5.1 [facility] Comment on above: Performed By: #### W SR, CMP ####[facility] [place], [place] [phone] Protein 5.9 g/dL Low 6.3-8.0 [facility] Comment on above: Performed By: #### W SR, CMP ####[facility] [address] [place], [place] [phone] Sodium 140 mmol/L Normal 136-144 [facility] Comment on above: Performed By: #### W SR, CMP ####[facility] [address] [place], [place] [phone] Urea nitrogen 12 mg/dL Normal 7-21 [facility] Comment on above: Performed By: #### W SR, CMP ####[facility] [address] [place], [place] [phone] Remote CBCDIF (for [facility] use o nly)on 11-26-2017 Abs Baso <0.03 Normal 0.00-0.10 [facility] Abs [place] 1.02 k/uL High 0.00-0.86 [facility] Abs Neut 9.59 k/uL High 1.45-7.50 [facility] Basophils/100 WBC Auto (Bld) 0.1 % Normal [facility] Eosinophils 0.65 10*3/uL High 0.00-0.45 [facility] Eosinophils/100 leukocytes 3.9 % Normal [facility] Erythrocyte distribution width Auto Ratio (RBC) 12.9 % Normal 11.5-15.0 [facility] Erythrocytes (RBC) 3.89 10*6/uL Low 3.90-5.20 [facility] Hematocrit (HCT) 36.7 % Normal 36.0-46.0 [facility] Hemoglobin mass conc (Bld) 12.9 g/dL Normal 11.5-15.5 [facility] Lymphocytes 5.40 10*3/uL High 1.00-4.00 [facility] Lymphocytes/100 leukocytes 32.4 % Normal [facility] MCH 33.2 pG Normal 26.0-34.0 [facility] MCHC mass conc (RBC) 35.1 g/dL Normal 30.5-36.0 [facility] MCV 94.3 fL Normal 80.0-100.0 [facility] Monocytes/100 leukocytes 6.1 % Normal [facility] Neutrophils/100 WBC Auto (Bld) 57.5 % Normal [facility] Platelet mean volume (PMV) 9.1 fL Normal 9.0-12.7 [facility] Platelets 325 10*3/uL Normal 150-400 [facility] WBC (Leukocytes) 16.68 10*3/uL High 3.70-11.00 [facility] Sed Rate Westergrenon 2017 Sed Rate Westergren 2 mm/hr Normal 0-20 [facility] Comment on above: Performed By: #### W SR, CMP ####[facility] [address] [place], [place] [phone] Vital Signs Date Time Vital Sign Value Performing Clinician Facility 04-01-2024 13:36-0500 Body height 162.6 cm Sheila Bernabe MD Work Phone: [facility] 04-01-2024 13:36-0500 Body mass index (BMI) [Ratio] 17.16 kg/m2 Sheila Bernabe MD Work Phone: [facility] 04-01-2024 13:36-0500 Body weight 45.36 kg Sheila Bernabe MD Work Phone: [facility] 04-01-2024 13:36-0500 Respiratory rate 16 /min Sheila Bernabe MD Work Phone: [facility] 03-09-2024 14:43-0400 Body height 162.6 cm Dave Sena MD Work Phone: [facility] 03-09-2024 14:43-0400 Body mass index (BMI) [Ratio] 17.46 kg/m2 Dave Sena MD Work Phone: [facility] 03-09-2024 14:43-0400 Body temperature 98.71 [degF] Dave Sena MD Work Phone: [facility] 03-09-2024 14:43-0400 Body weight 46.13 kg Dave Sena MD Work Phone: [facility] 03-09-2024 14:43-0400 Diastolic blood pressure 67 mm[Hg] Dave Sena MD Work Phone: [facility] 03-09-2024 14:43-0400 Heart rate 69 /min Dave Sena MD Work Phone: [facility] 03-09-2024 14:43-0400 Systolic blood pressure 106 mm[Hg] Dave Sena MD Work Phone: [facility] 01-24-2024 11:42-0400 Body height 162.6 cm Kings Landers III, MD Work Phone: [facility] 01-24-2024 11:42-0400 Body mass index (BMI) [Ratio] 17.1 kg/m2 Kings Landers III, MD Work Phone: [facility] 01-24-2024 11:42-0400 Body weight 45.2 kg Kings Landers III, MD Work Phone: [facility] 01-24-2024 11:42-0400 Diastolic blood pressure 44 mm[Hg] Kings Landers III, MD Work Phone: [facility] 01-24-2024 11:42-0400 Heart rate 76 /min Kings Landers III, MD Work Phone: [facility] 01-24-2024 11:42-0400 SaO2% (BldA) [Mass fraction] 99 % Kings Landers III, MD Work Phone: [facility] 01-24-2024 11:42-0400 Systolic blood pressure 112 mm[Hg] Kings Landers III, MD Work Phone: [facility] 01-20-2024 17:10-0400 Diastolic blood pressure 74 mm[Hg] Dwain Krishnanke DO Work Phone: [facility] 01-20-2024 17:10-0400 Heart rate 80 /min Dwain Krishnanke DO Work Phone: [facility] 01-20-2024 17:10-0400 Systolic blood pressure 117 mm[Hg] Dwain Krishnanke DO Work Phone: [facility] 11-14-2023 15:07-0400 Body temperature 98.6 [degF] Joe Pollack [facility] 11-14-2023 15:07-0400 Diastolic blood pressure 75 mm[Hg] Joe Pollack [facility] 11-14-2023 15:07-0400 Heart rate 66 /min Joe Pollack [facility] 11-14-2023 15:07-0400 Respiratory rate 18 /min Joe Pollack [facility] 11-14-2023 15:07-0400 SaO2% (BldA) [Mass fraction] 98 % Joe Pollack [facility] 11-14-2023 15:07-0400 Systolic blood pressure 110 mm[Hg] Joe Pollack [facility] 11-13-2019 08:07-0400 Body Temperature 97.7 [degF] [facility] [place] 11-13-2019 08:07-0400 BP Diastolic 61 mm[Hg] [place] 11-13-2019 08:07-0400 BP Systolic 122 mm[Hg] [place] 11-13-2019 08:07-0400 Pulse (Heart Rate) 78 /min [place] 11-13-2019 08:07-0400 Respiratory Rate 14 /min [facility] [place] 11-06-2019 17:12-0400 BMI (Body Mass Index) 20.6 kg/m2 [place] 11-06-2019 17:12-0400 Body weight 54.43 kg [place] 11-06-2019 17:12-0400 Height 162.6 cm [place] Encounters Encounter Date Encounter Type Care Provider Facility Start: 08-11-2024 Encounter for other preprocedural examination MARISSA WILSON [facility] Start: 08-11-2024 End: 08-11-2024 ambulatory MARISSA R [facility] Start: 08-11-2024 End: 08-11-2024 Patient encounter status [place] Giuseppe [employer]OMOTIVE INSTRUCTOR - DERRICK HELPER Work Phone: Kamari Cristopher [facility] Start: 08-11-2024 End: 08-11-2024 Subsequent hospital visit by physician Elsie Schneider AUTOMOTIVE INSTRUCTOR - DERRICK HELPER Work Phone: [facility] [employer] [facility] Comment on above: Unintentional weight loss; Pre-op testing Pre-op testing Start: 07-14-2024 End: 07-14-2024 ambulatory ELISE SCHNEIDER [facility] Start: 07-14-2024 End: 07-14-2024 Subsequent hospital visit by physician Elise Schneider AUTOMOTIVE INSTRUCTOR - DERRICK HELPER Work Phone: [facility] Comment on above: TYREL (generalized anx iety disorder); Moderate episode of recurrent major depressive disorder (HCC); Bipolar 1 disorder with moderate saeid (HCC) Start: 06-24-2024 End: 06-24-2024 ambulatory UNKNOWN PROVIDER Facility:[facility] Start: 04-01-2024 End: 04-01-2024 Office consultation new/estab patient 60 min Sheila Bernabe MD Work Phone: [facility] Comment on above: Left groin pain (Gabriela rissa Dx) Start: 04-01-2024 ambulatory SELF SELF Facility:[facility] Start: 03-27-2024 End: 03-27-2024 Telephone encounter Yoon Benson Radiology Comment on above: Appointment Start: 03-12-2024 End: 03-12-2024 Admission to same day surgery center Dona Mcginnis RN General Surgery Start: 03-12-2024 End: 03-12-2024 E-mail encounter from caregiver Dona Mcginnis RN General Surgery Start: 03-12-2024 End: 03-12-2024 Telephone encounter Dona Mcginnis RN General Surgery Start: 03-09-2024 End: 03-09-2024 Patient encounter procedure Dave Sena MD Work Phone: General Surgery Comment on above: Malrotation of intes coy (Primary Dx); Recurrent left inguinal hernia Start: 03-09-2024 End: 03-09-[address] [facility] Start: 02-11-2024 End: 02-11-2024 Telephone encounter Leora Mei PA-C Work Phone: General Surgery Start: 02-07-2024 End: 02-07-2024 ambulatory [facility] Facility:[facility] Start: 02-07-2024 End: 02-07-2024 Subsequent hospital visit by physician Cookie [facility] Radha Work Phone: Radiology Comment on above: Left lower quadrant abdominal pain [R10.32] Hernia [K46.9] Start: 01-24-2024 End: 01-24-2024 ambulatory [facility] Facility:[facility] Start: 01-24-2024 End: 01-24-2024 Patient encounter procedure Kings Landers MD Work Phone: General Surgery Comment on above: Reducible left ingui nal hernia (Primary Dx); Left groin mass; History of left inguinal hernia repair; LLQ pain; Left lower quadrant abdominal pain Start: 01-22-2024 End: 01-27-2024 ambulatory Dwain Preciado DO Work Phone: Internal Medicine [facility] Start: 01-22-2024 End: 01-27-2024 Patient encounter procedure Dwain Preciado DO Work Phone: Internal Medicine [facility] Start: 01-21-2024 End: 01-21-2024 Telephone encounter Silas JAMES Radiology Comment on above: Appointment Start: 01-20-2024 End: 01-20-2024 [facility] Start: 01-20-2024 End: 01-20-2024 Initial preventive medicine new patient 40-64yrs Dwain Krishnanke DO Work Phone: Internal Medicine Comment on above: Annual physical exam (Primary Dx); Special screening for malignant neoplasms, colon; Encounter for screening examination for other mental health and behavioral disorders; Screening for depression; Left groin mass; Tobacco use disorder Start: 01-20-2024 End: 01-20-2024 Patient encounter procedure Dwain Preciado DO Work Phone: [facility] Work Phone: Start: 01-20-2024 End: 01-20-2024 Telephone encounter Dwain Preciado DO Work Phone: Internal Medicine Start: 12-11-2023 ambulatory Joe Pollack Facility:[facility] Start: 12-06-2023 Telephone encounter Mine Hernandez RN Work Phone: General Surgery Start: 11-14-2023 End: 11-14-2023 Emergency department patient visit Joe Pollack [facility] Start: 11-11-2023 ambulatory Joe Pollack Facility:[facility] Start: 10-17-2023 ambulatory CRISTIANE CRAFTPASTORAMargarito Facility:[facility] Start: 10-17-2023 End: 10-17-2023 ambulatory [facility] Facility:[facility] Start: 08-01-2022 End: 08-02-2022 ambulatory [facility] Facility: Start: 07-25-2022 End: 07-25-2022 [facility] Start: 11-14-2019 End: 11-14-2019 Emergency department patient visit NEAL RUANO Facility:[facility] Start: 11-06-2019 End: 11-13-2019 [facility] and [facility] Start: 11-06-2019 Patient encounter procedure [facility] Admitting Start: 12-03-2017 End: 12-05-2017 Patient encounter KAM PARISH [facility] Start: 11-28-2017 End: 11-28-2017 Patient encounter CÉSAR SUE [facility] Start: 11-26-2017 End: 11-28-2017 Patient encounter CÉSAR SUE [facility] Procedures Date Procedure Procedure Detail Performing Clinician Start: 08-11-2024 Basic metabolic pane l calcium total Marissa Wilson AUTOMOTIVE INSTRUCTOR - DERRICK HELPER Work Phone: Start: 08-11-2024 Ecg routine ecg w/le ast 12 lds w/i&r Marissa R Ángel AUTOMOTIVE INSTRUCTOR - DERRICK HELPER Work Phone: Start: 07-14-2024 Assay of thyroid stimulating hormone tsh Elise Schneider AUTOMOTIVE INSTRUCTOR - DERRICK HELPER Work Phone: Start: 01-20-2024 Adult depression screening assessment Dwain Preciado [employer] Work Phone: Start: 10-17-2023 Lipid 1996 panel - S laureen or Plasma Dwain Preciado DO Work Phone: Start: 11-13-2019 DISCHARGE PATIENT SREEK ANTH INDURTI Start: 11-08-2019 Radiologic exam ches t single view BALTA INDURTI Start: 11-07-2019 IP CONSULT TO APPLICATIONS CHEMIST AL MEDICINE BALTA INDURTI Start: 11-06-2019 DIET GENERAL BALTA INDURTI Start: 11-06-2019 IP CONSULT TO HISTOR Y AND PHYSICAL BALTA INDURTI Start: 11-06-2019 FULL CODE BALTA INDURTI Start: 11-06-2019 TOBACCO CESSATION EDUCATION BALTA INDURTI Start: 11-06-2019 VITAL SIGNS BALTA INDURTI Start: 11-06-2019 PATIENT STATUS (DIRECT) BALTA INDURTI History of repair of inguinal hernia History of left inguinal hernia repair Kings Landers MD Work Phone: Plan of Treatment Date Care Activity Detail Author Start: 10-16-2028 Lipid panel Lipid Screening [facility] Start: 10-16-2026 Diabetes Screening Diabetes Screenin [facility] Start: 08-03-2025 Depression Monitoring Depression Mon itoring [employer] Start: 08-03-2025 Hepatitis B vaccine (1 of 3 - 19+ 3-dose series) Hepatitis B vaccine (1 of 3 - 19+ 3-dose series) [employer] Comment on above: Postponed from 09/04 (Not Indicated) Start: 08-03-2025 Pneumococcal 50+ yea rs Vaccine (1 of 2 - PCV) Pneumococcal 50+ years Vaccine (1 of 2 - PCV) [employer] Comment on above: Postponed from 09/04 (Patient Refused) Start: 08-03-2025 Shingles vaccine (1 of 2) Shingles vaccine (1 of 2) [facility] Comment on above: Postponed from 09/04 (Patient Refused) Start: 07-14-2025 Depression Monitoring Depression Mon itoolivia [facility] Start: 07-07-2025 COVID-19 Vaccine ( season) COVID-19 Vaccine ( season) [facility] Comment on above: Postponed from 01/25 (Patient Refused) Start: 07-07-2025 Influenza vaccination Flu vaccine (# 1) [facility] Comment on above: Postponed from 12/25 (Patient Refused) Start: 01-19-2025 Anxiety Screening Anxiety Screening [facility] Start: 01-19-2025 Depression Screening Depression Scre ening [facility] Start: 09-03-2024 End: 09-03-2024 Admission to same day surgery center 09/03/2024 11:10 AM EDT - 09/03/2024 11:46 AM EDT Surgery [facility] [address] [place] [address] Syed Segovia MD [address] [place] [address], [facility] COLONOSCOPY [facility] Comment on above: COLONOSCOPY Start: 09-03-2024 End: 09-03-2024 Colon ca scrn not hi rsk ind COLORECTAL CANCER SCREENING, NOT HIGH RISK Encounter for screening colonoscopy 09/03/2024 11:10 AM EDT [facility] Start: 09-03-2024 Subsequent hospital visit by physician 09/03/2024 11:10 AM EDT Hospital Encounter [facility] [address] [place] [address] Syed Segovia MD [address] [place], [place] [id number] [facility] Start: 08-31-2024 End: 08-31-2024 Patient encounter procedure 08/31/2024 10:40 AM EDT Office Visit [facility] [address] [place] [address] [address] [place] [address] Elise Schneider, AUTOMOTIVE INSTRUCTOR - DERRICK HELPER [address] [facility] [address] [place] [address] 4 week F/U Bipolar [facility] Comment on above: 4 week F/U Bipolar Start: 08-11-2024 End: 08-11-2024 Patient encounter procedure 08/11/2024 11:00 AM EDT Office Visit [facility] Part of [facility] [address] [facility] [address] [place] [id number] Marissa Wilson, AUTOMOTIVE INSTRUCTOR - DERRICK HELPER [address] [place] [address] Family history of colon cancer and Unexplained weight loss [facility] Comment on above: Family history of co norma cancer and Unexplained weight loss Start: 07-22-2024 End: 07-22-2024 Patient encounter procedure 07/22/2024 12:40 PM EST Office Visit Internal Medicine [address] [place] [address] [place] [address] [place] [address] 6 mos. f/u Internal Medicine Comment on above: 6 mos. f/u Start: 07-20-2024 End: 07-20-2024 Patient encounter procedure 07/20/2024 10:40 AM EST Office Visit [facility] [address] [place] [address] [address] [place] [address] Elise Schneider, AUTOMOTIVE INSTRUCTOR - DERRICK HELPER [address] [facility] [address] [place] [address] 1 week f/u [facility] Comment on above: 1 week f/u Start: 06-08-2024 End: 06-08-2024 Patient encounter procedure 06/08/2024 2:00 PM EST Office Visit [facility] [address] [place] [phone] Jabari De Jesus MD [address] [place] [address] [facility] Start: 03-09-2024 End: 03-09-2024 Patient encounter procedure 03/09/2024 10:30 AM EDT Appointment [facility] [address] [place] [address] Alia Haney MD [address] [place] [place] [address] Special screening for malignant neoplasms, colon [Z12.11] [facility] Endoscopy [facility] Comment on above: Special screening fo r malignant neoplasms, colon [Z12.11] Start: 02-07-2024 End: 02-07-2024 Patient encounter procedure Radiology Comment on above: Left lower quadrant abdominal pain [R10.32] Start: 01-26-2024 COVID-19 VACCINE ( season) COVID-19 VACCINE ( season) [facility] Start: 01-26-2024 Influenza vaccination Influenza Vacc ine (#1) [facility] Start: 01-24-2024 End: 01-24-2024 Patient encounter procedure 01/24/2024 11:45 AM EDT Office Visit General Surgery [address] [place] [address] Kings Landers III, MD [address] [place] [address] Left groin mass [R19.09] General Surgery Comment on above: Left groin mass [R19 .09] Start: 05-27-2023 Behavioral Health Screening Behavioral Health Screening [facility] Start: 01-25-2023 Covid-19 Vaccine ( season) Covid-19 Vaccine ( season) [facility] Start: 01-26-2020 Influenza vaccination Flu vacc ine (Season Ended) [place], [place] Start: 2018 Screening for malign ant neoplasm of breast Breast cancer screen [place] Start: 2018 Screening for malign ant neoplasm of colon Colon cancer screen colonoscopy [place] Start: 2018 Screening for malign ant neoplasm of lung Lung Cancer Screening &/or Counseling [facility] Start: 2018 Shingles Vaccine (1 of 2) Shingles Vaccine (1 of 2) [facility] Start: 2018 Shingrix Vaccine (1 of 2) Shingrix Vaccine (1 of 2) [facility] Start: 2018 Zoster vaccine hzv l justine for subcutaneous use ZOSTER (SHINGLES) VACCINE (1 of 2) [facility] Start: 2013 Diabetes Screening Diabetes Screenin g [facility] Start: 2013 Lipid panel Lipid Screening [facility] Start: 2013 Screening for malign ant neoplasm of colon [facility] Start: 2008 Lipid panel [facility] Start: 2008 Screening for malign ant neoplasm of breast [facility] Start: 1998 Screening for malign ant neoplasm of cervix [facility] Start: 1989 Screening for malign ant neoplasm of cervix [facility] Start: 09-05-1987 DTaP/Tdap/Td vaccine (1 - Tdap) DTaP/Tdap/Td vaccine (1 - Tdap) [facility] Start: 09-05-1987 Hepatitis B vaccination HEP B VACCINE (1 of 3 - 19+ 3-dose series) [facility] Start: 09-05-1987 Hepatitis B Vaccine (1 of 3 - 19+ 3-dose series) Hepatitis B Vaccine (1 of 3 - 19+ 3-dose series) [facility] Start: 09-05-1987 Pneumococcal 50+ yea rs Vaccine (1 of 2 - PCV) Pneumococcal 50+ years Vaccine (1 of 2 - PCV) [facility] Start: 09-05-1987 Third diphtheria, tetanus and acellular pertussis (DTaP) vaccination TDAP (ADULT) [facility] Start: 09-05-1987 Urine microalbumin profile DTaP,Tdap,Td Vaccine (1 - Tdap) [facility] Start: 1986 Hepatitis C screening [facility] Start: 1986 HIV screening HIV Screening [facility] Start: 09-05-[address] HIV screening [facility] Start: 1974 Pneumococcal 0-64 ye ars Vaccine (1 of 1 - PPSV23) Pneumococcal 0-64 years Vaccine (1 of 1 - PPSV23) [place] Start: 1974 Pneumococcal vaccination Pneumococcal Vaccine (1 of 2 - PCV) [facility] Start: 1968 Hepatitis C screening HEPATITI S C VIRUS SCREENING [facility] Start: 1968 Tetanus vaccination TETANUS [facility] End: 02-22-2025 CT Abdomen and Pelvis W contrast IV CT ABD/PEL W IVCON Radiology Routine Left lower quadrant abdominal pain 1 Occurrences starting 01/24/2024 until 02/22/2025 [facility] Work Phone: Comment on above: 1 Occurrences starti ng 01/24/2024 until 02/22/2025 CT Abdomen and Pelvi s W contrast IV CT ABD/PEL W IVCON Radiology Routine Left lower quadrant abdominal pain 02/07/2024 3:31 PM EDT [facility] Work Phone: End: 02-20-2025 DBT Breast - bilateral screening WHITLEY SCREENING W KATHY Radiology Routine Encounter for screening mammogram for breast cancer 1 Occurrences starting 01/22/2024 until 02/20/2025 [facility] Work Phone: Comment on above: 1 Occurrences starti ng 01/22/2024 until 02/20/2025 End: 01-19-2025 Screening colonoscopy COLONOSCOPY SCREENING Endoscopy Routine Special screening for malignant neoplasms, colon 1 Occurrences starting 01/20/2024 until 01/19/2025 [facility] Work Phone: Comment on above: 1 Occurrences starti ng 01/20/2024 until 01/19/2025 End: 02-18-2025 US Hip - left US HIP LEFT Radiology Routine Left groin mass 1 Occurrences starting 01/20/2024 until 02/18/2025 [facility] Comment on above: 1 Occurrences starti ng 01/20/2024 until 02/18/2025 End: 04-08-2025 US Hip - left US HIP LEFT Radiology Routine Recurrent left inguinal hernia 1 Occurrences starting 03/09/2024 until 04/08/2025 [facility] Work Phone: Comment on above: 1 Occurrences starti ng 03/09/2024 until 04/08/2025 Payers Date Payer Category Payer Self-pay 2023 Medicaid [place] [employer] [facility] MEDICAID [id number] 2023-Present [phone] [address] [place] [address] Medicaid [id number] 2019 Unknown 2014 Unknown AGUSTIN COUNT INCLUDES THE [facility] HE[employer] [facility]AN [employer] xxxxxxxxxxxx 2014-Present [phone] [address] [place] [address] xxxxxxxxxxxx [id number] 1968 Unknown [id number] 1968 Unknown [id number] 1968 Unknown [id number] 1968 Unknown [id number] 1968 Unknown [id number] 1968 Unknown [id number] 1968 Unknown [id number] 1968 Unknown [id number] 1968 Unknown [id number] 1968 Unknown [id number] 1968 Unknown [id number] 1968 Unknown [id number] 1959 Unknown [id number] Social History Date Type Detail Facility Start: 05-27-1984 End: 07-07-2024 Tobacco smoking status RIIS Current every day smoker [facility] Start: 1970 Sex Assigned At Not on file [place] Exposure to SARS-CoV -2 (event) Unable to assess [place] Start: 11-14-2023 Tobacco smoking status Heavy t obacco smoker (finding) [facility] Start: 01-20-2024 End: 07-07-2024 Sex Assigned At Female [facility] Tobacco smoking stat [facility] Tobacco smoking consumption unknown [facility] Work Phone: Start: 01-20-2024 Tobacco smoking stat [facility] Never smoked tobacco [facility] Work Phone: Start: 01-20-2024 End: 08-11-2024 Alcoholic beverage intake Current drinker of alcohol (finding) [facility] Start: 01-20-2024 End: 07-07-2024 History of Social function [facility] Adult Depression Screening Assessment 0 [facility] Start: 05-27-1984 History of tobacco use Cigarette Smo ker [facility] Start: 03-09-2024 End: 07-07-2024 Tobacco use and exposure Smokeless tobacco non-user [facility] Start: 04-01-2024 Alcohol Comment 12 oz cans [facility] Has the [employer], or water company threatened to shut off services in your home in past 12Mo No [facility] [employer] (I/We) worried whekahlil er (my/our) food would run out before (I/we) got money to buy more. Never true [facility] [employer] Start: 07-07-2024 Alcohol Comment socially [facility] Start: 11-06-2019 Sex Female (finding) Kamari silva [facility] Functional Status Date Assessment Result Facility 11-14-2023 Functional Status N/A [facility] Clinical Notes 11-14-2023 to 04-01-2024 Sheila Bernabe MD - 04/01/2024 1:30 PM Randy Bernabe MD - 04/01/2024 1:30 PM ESTTelephone Encounter - Yoon Benson - 03/27/2024 11:07 AM Dave Choudhary MD - 03/09/2024 3:05 PM EDT Note Date & Type Note Facility 04-01-2024 History and physical note Chief Complaint Patient presents with Consult Groin Lump Evaluation of left groin bulge x 1 year, h/o right inguinal hernia repair x 2. +++++++++++++++++++++++++++++++++ ++++++++++++++++++++++++ HPI +++++++++++++++++++++++++++++++++ ++++++++++++++++++++++++ History of Present Illness The patient presents for evaluation of a left inguinal hernia. She is accompanied by an adult male. She has undergone two open inguinal hernia repairs on the left side, both involving small incisions in the groin area and the placement of a mesh. The first surgery was performed approximately 10 years ago, and the second one nearly 2 years ago. Since the last surgery, she has developed another hernia that is causing significant pain, which is different from her previous hernias. The pain is constant and exacerbated by activities such as sitting up, vacuuming, exercising, and any movement involving her abdomen. She finds relief from the pain by using a heating pad and lying down. She has been informed that her intestines have dropped and twisted, which is causing the pain. Additionally, she reports weight loss and changes in her bowel movements, which have become difficult. She has consulted a radio tester about these issues. She uses a stimulator patch for pain management, but it limits her ability to perform many household tasks. She describes a sensation of her internal organs falling down and out, and her abdomen appears swollen. She has been experiencing these symptoms for a year and feels as though she has a uterine prolapse. She also had a . The patient has no past medical history on file. The patient has a past surgical history that includes hernia repair (Right); hernia repair (Right); and section. The patients family history is not on file. The patient has a current medication list which includes the following prescription(s): acetaminophen. The patient is has No Known Allergies. The patient reports that she has been smoking cigarettes. She has never used smokeless tobacco. She reports current alcohol use of about 2.0 standard drinks of alcohol per week. She reports that she does not currently use drugs. I have reviewed the patient's medical history in detail and updated the computerized patient record. +++++++++++++++++++++++++++++++++ ++++++++++++++++++++++++ REVIEW OF SYSTEMS +++++++++++++++++++++++++++++++++ ++++++++++++++++++++++++ CONSTITUTIONAL > >Normal ORIENTATION X 3 MOOD/AFFECT > > >Normal SKIN > > > >Normal EYES > > > >Normal HEENT > > > >Normal CARDIOVASCULAR > >Normal RESPIRATORY > > >Normal GASTROINTESTINAL > >Normal PERI > > > >Normal INTEGUMENTARY > >Normal MUSCULOSKELETAL > >Normal NEUROLOGICAL > > >Normal HEMAT/LYMPH > > >Normal ALL/IMMUN > > >Normal PSYCHIATRIC > > >Normal ENDOCRINE > > >Normal ALL OTHERS > > >Normal +++++++++++++++++++++++++++++++++ ++++++++++++++++++++++++ PHYSICAL EXAM +++++++++++++++++++++++++++++++++ ++++++++++++++++++++++++ Resp 16 Ht 1.626 m (5' 4 ) Wt 45.4 kg (100 lb) BMI 17.16 kg/m Smoking Status Every Day GENERAL Physical Exam EYES Normal Conjuctivae and lids > > >Normal PERRLA > > > > >Normal EOMI > > > > >Normal HEENT Normal External Ears and Nose > > >Normal NECK Normal Thyroid > > > > >Normal No masses, symmetry, no crepitus >Normal RESPIRATORY Jessica l Respiratory Effort > > > >Normal Percussion > > > >Normal Palpitation > > > > >Normal Auscultation > > > >Normal CARDIOVASCULAR Normal Palpitation > > > > >Normal Ausculation shows no MRG > >Normal CCE > > > > >Normal +++++++++++++++++++++++++++++++++ ++++++++++++++++++++++++ ABDOMEN No rmal Masses or Tenderness > > >No Hepatosplenomegaly > >No Herrnias > > > > >No +++++++++++++++++++++++++++++++++ ++++++++++++++++++++++++ GENITOURINARY Jessica l Normal LYMPHATIC No rmal Cervical Nodes > > > >Normal Supraclavicular Nodes > > >Normal Axillary Nodes > > > >Normal Groin Nodes > > >Normal MUSCULOSKELETAL Normal Gait and Station > > > >Normal SKIN --NormalInspection and Palpitation > > >Normal +++++++++++++++++++++++++++++++++ ++++++++++++++++++++++++ TESTS/IMAGING +++++++++++++++++++++++++++++++++ ++++++++++++++++++++++++ ULTRASOUND CCK-HIDA SCAN UGI-SBFT CT SCAN-A/P ABDOMINAL MRI COLONOSCOPY +++++++++++++++++++++++++++++++++ ++++++++++++++++++++++++ ASSESSMENT +++++++++++++++++++++++++++++++++ ++++++++++++++++++++++++ DIAGNOSIS: +++++++++++++++++++++++++++++++++ +++++++++++++++++++ PLAN +++++++++++++++++++++++++++++++++ +++++++++++++++++++ Assessment & Plan 1. Left inguinal hernia. The patient's pain is likely due to the mesh used in the previous hernia repair, which is now causing chronic discomfort. The mesh is still intact and functioning as intended, preventing the recurrence of the hernia. The pain could be due to the ilioinguinal nerve running across the mesh. An ilioinguinal nerve block injection on the left side is recommended to alleviate the pain. A referral to a chronic pain specialist and anesthesiologist will be made for this procedure. Physical therapy may also be beneficial. 2. Malrotation. Malrotation was observed on the CT scan, but it is not causing any blockage as the contrast passes through to the colon. Surgery is not recommended unless it becomes a problem, as the patient has lived with this condition all her life. She is advised to monitor her symptoms and seek further evaluation if they worsen. I recommend proceeding with no surgery. I would like to try a left ilialinguinal nerve block first, as her hernia is still repaired on CT. Treatment alternatives were discussed. Discussed aspects of surgical intervention, methods, risks (including by not limited to infection, bleeding, hematoma, and perforation of the intestings or solid organs) and the risks of general anesthetic including MD, CVA, sudden or even reaction to anesthetic medications. The patient understands the risks, any and all questions were answered to the patient's satisfaction. Patient does not wish to proceed with surgery. Written consent was obtained. This was a 20 minute or more consultation, the majority of time was spent in [id number] contact with the patient and counseling her regarding the current diagnosis. [facility] Work Phone: 04-01-2024 History and physical note Chief Complaint Patient presents with Consult Groin Lump Evaluation of left groin bulge x 1 year, h/o right inguinal hernia repair x 2. +++++++++++++++++++++++++++++++++ ++++++++++++++++++++++++ HPI +++++++++++++++++++++++++++++++++ ++++++++++++++++++++++++ History of Present Illness The patient presents for evaluation of a left inguinal hernia. She is accompanied by an adult male. She has undergone two open inguinal hernia repairs on the left side, both involving small incisions in the groin area and the placement of a mesh. The first surgery was performed approximately 10 years ago, and the second one nearly 2 years ago. Since the last surgery, she has developed another hernia that is causing significant pain, which is different from her previous hernias. The pain is constant and exacerbated by activities such as sitting up, vacuuming, exercising, and any movement involving her abdomen. She finds relief from the pain by using a heating pad and lying down. She has been informed that her intestines have dropped and twisted, which is causing the pain. Additionally, she reports weight loss and changes in her bowel movements, which have become difficult. She has consulted a radio tester about these issues. She uses a stimulator patch for pain management, but it limits her ability to perform many household tasks. She describes a sensation of her internal organs falling down and out, and her abdomen appears swollen. She has been experiencing these symptoms for a year and feels as though she has a uterine prolapse. She also had a . The patient has no past medical history on file. The patient has a past surgical history that includes hernia repair (Right); hernia repair (Right); and section. The patients family history is not on file. The patient has a current medication list which includes the following prescription(s): acetaminophen. The patient is has No Known Allergies. The patient reports that she has been smoking cigarettes. She has never used smokeless tobacco. She reports current alcohol use of about 2.0 standard drinks of alcohol per week. She reports that she does not currently use drugs. I have reviewed the patient's medical history in detail and updated the computerized patient record. +++++++++++++++++++++++++++++++++ ++++++++++++++++++++++++ REVIEW OF SYSTEMS +++++++++++++++++++++++++++++++++ ++++++++++++++++++++++++ CONSTITUTIONAL > >Normal ORIENTATION X 3 MOOD/AFFECT > > >Normal SKIN > > > >Normal EYES > > > >Normal HEENT > > > >Normal CARDIOVASCULAR > >Normal RESPIRATORY > > >Normal GASTROINTESTINAL > >Normal PERI > > > >Normal INTEGUMENTARY > >Normal MUSCULOSKELETAL > >Normal NEUROLOGICAL > > >Normal HEMAT/LYMPH > > >Normal ALL/IMMUN > > >Normal PSYCHIATRIC > > >Normal ENDOCRINE > > >Normal ALL OTHERS > > >Normal +++++++++++++++++++++++++++++++++ ++++++++++++++++++++++++ PHYSICAL EXAM +++++++++++++++++++++++++++++++++ ++++++++++++++++++++++++ Resp 16 Ht 1.626 m (5' 4 ) Wt 45.4 kg (100 lb) BMI 17.16 kg/m Smoking Status Every Day GENERAL Physical Exam EYES Normal Conjuctivae and lids > > >Normal PERRLA > > > > >Normal EOMI > > > > >Normal HEENT Normal External Ears and Nose > > >Normal NECK Normal Thyroid > > > > >Normal No masses, symmetry, no crepitus >Normal RESPIRATORY Jessica l Respiratory Effort > > > >Normal Percussion > > > >Normal Palpitation > > > > >Normal Auscultation > > > >Normal CARDIOVASCULAR Normal Palpitation > > > > >Normal Ausculation shows no MRG > >Normal CCE > > > > >Normal +++++++++++++++++++++++++++++++++ ++++++++++++++++++++++++ ABDOMEN No rmal Masses or Tenderness > > >No Hepatosplenomegaly > >No Herrnias > > > > >No +++++++++++++++++++++++++++++++++ ++++++++++++++++++++++++ GENITOURINARY Jessica l Normal LYMPHATIC No rmal Cervical Nodes > > > >Normal Supraclavicular Nodes > > >Normal Axillary Nodes > > > >Normal Groin Nodes > > >Normal MUSCULOSKELETAL Normal Gait and Station > > > >Normal SKIN --NormalInspection and Palpitation > > >Normal +++++++++++++++++++++++++++++++++ ++++++++++++++++++++++++ TESTS/IMAGING +++++++++++++++++++++++++++++++++ ++++++++++++++++++++++++ ULTRASOUND CCK-HIDA SCAN UGI-SBFT CT SCAN-A/P ABDOMINAL MRI COLONOSCOPY +++++++++++++++++++++++++++++++++ ++++++++++++++++++++++++ ASSESSMENT +++++++++++++++++++++++++++++++++ ++++++++++++++++++++++++ DIAGNOSIS: +++++++++++++++++++++++++++++++++ +++++++++++++++++++ PLAN +++++++++++++++++++++++++++++++++ +++++++++++++++++++ Assessment & Plan 1. Left inguinal hernia. The patient's pain is likely due to the mesh used in the previous hernia repair, which is now causing chronic discomfort. The mesh is still intact and functioning as intended, preventing the recurrence of the hernia. The pain could be due to the ilioinguinal nerve running across the mesh. An ilioinguinal nerve block injection on the left side is recommended to alleviate the pain. A referral to a chronic pain specialist and anesthesiologist will be made for this procedure. Physical therapy may also be beneficial. 2. Malrotation. Malrotation was observed on the CT scan, but it is not causing any blockage as the contrast passes through to the colon. Surgery is not recommended unless it becomes a problem, as the patient has lived with this condition all her life. She is advised to monitor her symptoms and seek further evaluation if they worsen. I recommend proceeding with no surgery. I would like to try a left ilialinguinal nerve block first, as her hernia is still repaired on CT. Treatment alternatives were discussed. Discussed aspects of surgical intervention, methods, risks (including by not limited to infection, bleeding, hematoma, and perforation of the intestings or solid organs) and the risks of general anesthetic including MD, CVA, sudden or even reaction to anesthetic medications. The patient understands the risks, any and all questions were answered to the patient's satisfaction. Patient does not wish to proceed with surgery. Written consent was obtained. This was a 20 minute or more consultation, the majority of time was spent in [id number] contact with the patient and counseling her regarding the current diagnosis. documented in this encounter [facility] 03-27-2024 Telephone encounter Note Called patient on March 27, 2024 at 11:07 AM to schedule their MSK US exam. PT declined to schedule due to availability. PT will call back if PT decides to schedule the appointment. [facility] 03-27-2024 Miscellaneous Notes Called patient on March 27, 2024 at 11:07 AM to schedule their MSK US exam. PT declined to schedule due to availability. PT will call back if PT decides to schedule the appointment. Visit Type: ANY MSK Visit Length: 45, 50 OR 60 MINUTES Order Name/Protocol: US HIP LT; MEDIAL-EVAL FOR LT INGUINAL HERNIA Preferred Provider: N/A Comment: Please ask if the patient has ever had any prior surgery to their LT groin. If so, upgrade the visit type to an MSK1 and notate the surgical hx in the Appointment Note. Location: Depending on the surgical hx, this patient can have this exam performed at any of our four locations. Slot held: N/A documented in this encounter [facility] 03-27-2024 Telephone encounter Note Visit Type: ANY MSK Visit Length: 45, 50 OR 60 MINUTES Order Name/Protocol: US HIP LT; MEDIAL-EVAL FOR LT INGUINAL HERNIA Preferred Provider: N/A Comment: Please ask if the patient has ever had any prior surgery to their LT groin. If so, upgrade the visit type to an MSK1 and notate the surgical hx in the Appointment Note. Location: Depending on the surgical hx, this patient can have this exam performed at any of our four locations. Slot held: N/A [facility] 03-12-2024 Telephone encounter Note Opened in error unable to send mychart or text [facility] 03-12-2024 Miscellaneous Notes Opened in error unable to send mychart or text documented in this encounter [facility] 03-12-2024 Telephone encounter Note Contacted patient- very upset that she attempted to connect wit hhte correct surgical team and was told on two or three occasions that she was not with the right team. Reviewed pt's medical concerns and assured her that Dr. Angulo is the correct surgeon for her intestinal malrotation. Offered to schedule pt- declined. Re-iterated that she is very dissatisfied with the [facility] and is transferring care. Offered pt this Rns contact info in case she needs to connect with someone from [facility] who can assist. [facility] 03-12-2024 Miscellaneous Notes Contacted patient- very upset that she attempted to connect wit hhte correct surgical team and was told on two or three occasions that she was not with the right team. Reviewed pt's medical concerns and assured her that Dr. Angulo is the correct surgeon for her intestinal malrotation. Offered to schedule pt- declined. Re-iterated that she is very dissatisfied with the [facility] and is transferring care. Offered pt this Rns contact info in case she needs to connect with someone from [facility] who can assist. documented in this encounter [facility] 03-09-2024 Note HNO ID: [id number] Author: DAVE SENA MD Service: ? Author Type: Physician Type: Progress Notes Filed: 03/09/2024 15:54 Note Text: Consultation requested by Dr. Leora Mei for an opinion regarding recurrent inguinal hernia. My final recommendations will be communicated back to the requesting physician by way of shared medical record or letter via [place] mail. Sylvia Barksdale is a 53 year old female who presents with possible recurrent left inguinal hernia. She has undergone two open left inguinal hernia repairs. We don't have the op reports. On exam, I do not think she has a left inguinal hernia. Her CT scan was read with a left inguinal hernia, but on reviewing the imaging, I do not see an inguinal hernia. We will get an US to assess the groin area. She also has malrotation on the CT and complains of abdominal pain. I will refer her to Dr. Reece for further evaluation. I have seen and evaluated the patient and discussed the case with the resident physician. I agree with the assessment and plan as documented in the resident?s note including a ROS that was reviewed and negative other than what was indicated in our notes. Patient consented for study? Not applicable [facility] 03-09-2024 History of Present illness Narrative Consultation requested by Dr. Leora Mei for an opinion regarding recurrent inguinal hernia. My final recommendations will be communicated back to the requesting physician by way of shared medical record or letter via US mail. Sylvia Barksdale is a 53 year old female who presents with possible recurrent left inguinal hernia. She has undergone two open left inguinal hernia repairs. We don't have the op reports. On exam, I do not think she has a left inguinal hernia. Her CT scan was read with a left inguinal hernia, but on reviewing the imaging, I do not see an inguinal hernia. We will get an US to assess the groin area. She also has malrotation on the CT and complains of abdominal pain. I will refer her to Dr. Reece for further evaluation. I have seen and evaluated the patient and discussed the case with the resident physician. I agree with the assessment and plan as documented in the resident s note including a ROS that was reviewed and negative other than what was indicated in our notes. Patient consented for study? Not applicable documented in this encounter [facility] 03-09-2024 History and physical note [facility] - HISTORY AND PHYSICAL Chief Complaint: L inguinal groin pain HPI: Sylvia Barksdale is a 53 year old female hx of L inguinal hernia repair x2 who presents with L inguinal groin pain and bulge. Her last inguinal hernia operation was 2 years ago, not sure if it was with mesh. She currently has a lump in her left groin with pain, and has constipation, abdominal pain, bloating, and cramping. Recent CT shows incidentally found malrotation. Relevant previous abdominal operations include: L Inguinal hernia repair x2 C section Opioid Dependence Risk Screen: Major Depression Anxiety Disorder Functional Status: Independent Employment Status: No employment Activity Level: Moderate (once/week) Co-morbidities: No Significant Comorbidities No past medical history on file. No past surgical history on file. Social History Tobacco Use Smoking status: Every Day Types: Cigarettes Smokeless tobacco: Never Substance Use Topics Alcohol use: Yes Additional social history not relevant to the patient's HPI FAMILY HISTORY Problem Relation Age of Onset Colon Cancer Father Colon Cancer Brother Additional family history not relevant to the patient's HPI ALLERGIES No Known Allergies No current outpatient medications on file. No current facility-administered medications for this visit. REVIEW OF SYSTEMS GENERAL: No fevers. RESPIRATORY: No cough or shortness of breath CARDIOVASCULAR: No chest pain GI: No nausea, vomiting, or diarrhea The remainder of the review of systems is negative. BP 106/67 Pulse 69 Temp 37.1 C (98.7 F) (Temporal) Ht 162.6 cm (5' 4 ) Wt 46.1 kg (101 lb 11.2 oz) BMI 17.46 kg/m Physical findings of this patient are as follows Physical Exam Constitutional: The patient is well-developed and in no distress. Cardiovascular: Regular rate. Pulmonary/Chest: Effort normal and breathing comfortably on room air. Abdominal: Soft. Diffusely tender Neurological: Alert. Skin: Skin is warm and dry. Psychiatric: Affect and judgment normal. Relevant Hernia Findings - Left inguinal scar tissue, no hernia palpated LABS: No results found for: HBA1C IMAGING - Reviewed with staff CT - 01/2024 IMPRESSION: 1. Incidental note made of small bowel malrotation without evidence of midgut volvulus. No evidence of small bowel obstruction at this time. 2. Small fat-containing left inguinal hernia. On direct review, no hernia seen Assessment: Sylvia Barksdale is a 53 year old female who presents with L groin pain and abdominal pain, CT with incidental malrotation without volvulus or obstruction, no hernia recurrence on direct read Plan: - No recurrence of hernia on CT or exam - Will get US of L groin - Consult to Dr. Luevano regarding malrotation Discussed with Dr. Hilario Arias MD General Surgery PGY1 [facility] 03-09-2024 History and physical note [facility] Abdominal [facility] - HISTORY AND PHYSICAL Chief Complaint: L inguinal groin pain HPI: Sylvia Barksdale is a 53 year old female hx of L inguinal hernia repair x2 who presents with L inguinal groin pain and bulge. Her last inguinal hernia operation was 2 years ago, not sure if it was with mesh. She currently has a lump in her left groin with pain, and has constipation, abdominal pain, bloating, and cramping. Recent CT shows incidentally found malrotation. Relevant previous abdominal operations include: L Inguinal hernia repair x2 C section Opioid Dependence Risk Screen: Major Depression Anxiety Disorder Functional Status: Independent Employment Status: No employment Activity Level: Moderate (once/week) Co-morbidities: No Significant Comorbidities No past medical history on file. No past surgical history on file. Social History Tobacco Use Smoking status: Every Day Types: Cigarettes Smokeless tobacco: Never Substance Use Topics Alcohol use: Yes Additional social history not relevant to the patient's HPI FAMILY HISTORY Problem Relation Age of Onset Colon Cancer Father Colon Cancer Brother Additional family history not relevant to the patient's HPI ALLERGIES No Known Allergies No current outpatient medications on file. No current facility-administered medications for this visit. REVIEW OF SYSTEMS GENERAL: No fevers. RESPIRATORY: No cough or shortness of breath CARDIOVASCULAR: No chest pain GI: No nausea, vomiting, or diarrhea The remainder of the review of systems is negative. BP 106/67 Pulse 69 Temp 37.1 C (98.7 F) (Temporal) Ht 162.6 cm (5' 4 ) Wt 46.1 kg (101 lb 11.2 oz) BMI 17.46 kg/m Physical findings of this patient are as follows Physical Exam Constitutional: The patient is well-developed and in no distress. Cardiovascular: Regular rate. Pulmonary/Chest: Effort normal and breathing comfortably on room air. Abdominal: Soft. Diffusely tender Neurological: Alert. Skin: Skin is warm and dry. Psychiatric: Affect and judgment normal. Relevant Hernia Findings - Left inguinal scar tissue, no hernia palpated LABS: No results found for: HBA1C IMAGING - Reviewed with staff CT - 01/2024 IMPRESSION: 1. Incidental note made of small bowel malrotation without evidence of midgut volvulus. No evidence of small bowel obstruction at this time. 2. Small fat-containing left inguinal hernia. On direct review, no hernia seen Assessment: Sylvia Barksdale is a 53 year old female who presents with L groin pain and abdominal pain, CT with incidental malrotation without volvulus or obstruction, no hernia recurrence on direct read Plan: - No recurrence of hernia on CT or exam - Will get US of L groin - Consult to Dr. Luevano regarding malrotation Discussed with Dr. Hilario Arias MD General Surgery PGY1 documented in this encounter [facility] 03-09-2024 Nurse Note What is the reason for your visit today? Consult Who is your referring physician? Leora Mei Are you having poor oral intake? NO Have you had unintentional weight loss of 15 lbs/7 Kg in the last 3-6 months? YES Bowels: constipated, diarrhea, or regular Wound: None Temperature: No Drains: No [facility] 03-09-2024 Nurse Note What is the reason for your visit today? Consult Who is your referring physician? Leora Mei Are you having poor oral intake? NO Have you had unintentional weight loss of 15 lbs/7 Kg in the last 3-6 months? YES Bowels: constipated, diarrhea, or regular Wound: None Temperature: No Drains: No documented in this encounter [facility] 02-11-2024 Telephone encounter Note I called patient and advised of below: IMPRESSION: 1. Incidental note made of small bowel malrotation without evidence of midgut volvulus. No evidence of small bowel obstruction at this time. 2. Small fat-containing left inguinal hernia. I advised I discussed results with Dr. Landers and he is recommending hernia center surgeon due to history of 2 previous LIH repairs. Patient states he did mention this in the office. I advised of incidental finding of malrotation without complication presently, but to be aware if severe pain, lack of bowel function, NV, etc need to seek emergent attention. Patient voiced understanding and appreciative. [facility] 02-11-2024 Miscellaneous Notes I called patient and advised of below: IMPRESSION: 1. Incidental note made of small bowel malrotation without evidence of midgut volvulus. No evidence of small bowel obstruction at this time. 2. Small fat-containing left inguinal hernia. I advised I discussed results with Dr. Landers and he is recommending hernia center surgeon due to history of 2 previous LIH repairs. Patient states he did mention this in the office. I advised of incidental finding of malrotation without complication presently, but to be aware if severe pain, lack of bowel function, NV, etc need to seek emergent attention. Patient voiced understanding and appreciative. documented in this encounter [facility] 02-07-2024 History of Present illness Narrative Radiology Service Progress Note DATE OF SERVICE: February 07, 2024 TIME: 3:20 PM PATIENT IDENTITY VERIFICATION COMPLETED USING TWO (2) STANDARD IDENTIFIERS: Name and Date of confirmed by patient verbally. FALL SCREENING: Has the patient had 2 falls in the last year or 1 fall with injury or currently using an Ambulatory Assistive Device (Walker, Cane, Wheelchair, Crutches, etc.)? No PATIENT GENDER DATA: Female. status: : No status: NO. PATIENT RELEVANT IMPLANT DATA REVIEWED: Yes PATIENT PRESENTS WITH AN IMPLANTABLE OR ATTACHED TIME STUDY ENGINEER: No ALLERGIES: Reviewed and unchanged CONTRAST ALLERGY: NO. EXAM: CT -CONTRAST INDUCED NEPHROPATHY RISK FACTORS: Not applicable CREATININE: No results found for: CREAT , EGFROTH , EGFRAA P.O.C.T. RESULTS: POC done: Yes, See Lab Tab February 07, 2024 TREATMENT: N/A PERIPHERAL IV DATA: Ambulatory: A peripheral IV was started in the Right antecubital site with a Angio cath: 22 gauge. RADIOLOGY DEPARTMENT: CT; Exam(s) Completed: Abdomen/Pelvis SIGNATURE: ZORAIDA Vela) PATIENT NAME: Sylvia Barksdale DATE: February 07, 2024 TIME: 3:20 PM documented in this encounter [facility] 02-07-2024 Note HNO ID: [id number] Author: KELSIE MARTINES RT(R) Service: ? Author Type: Technologist Type: Progress Notes Filed: 02/07/2024 15:30 Note Text: Radiology Service Progress Note DATE OF SERVICE: February 07, 2024 TIME: 3:20 PM PATIENT IDENTITY VERIFICATION COMPLETED USING TWO (2) STANDARD IDENTIFIERS: Name and Date of confirmed by patient verbally. FALL SCREENING: Has the patient had 2 falls in the last year or 1 fall with injury or currently using an Ambulatory Assistive Device (Walker, Cane, Wheelchair, Crutches, etc.)? No PATIENT GENDER DATA: Female. status: : No status: NO. PATIENT RELEVANT IMPLANT DATA REVIEWED: Yes PATIENT PRESENTS WITH AN IMPLANTABLE OR ATTACHED TIME STUDY ENGINEER: No ALLERGIES: Reviewed and unchanged CONTRAST ALLERGY: NO. EXAM: CT -CONTRAST INDUCED NEPHROPATHY RISK FACTORS: Not applicable CREATININE: No results found for: CREAT , EGFROTH , EGFRAA P.O.C.T. RESULTS: POC done: Yes, See Lab Tab February 07, 2024 TREATMENT: N/A PERIPHERAL IV DATA: Ambulatory: A peripheral IV was started in the Right antecubital site with a Angio cath: 22 gauge. RADIOLOGY DEPARTMENT: CT; Exam(s) Completed: Abdomen/Pelvis SIGNATURE: RT Mirian(R) PATIENT NAME: Sylvia Barksdale DATE: February 07, 2024 TIME: 3:20 PM [facility] 01-24-2024 History and physical note Ms. Barksdale is here today at the request of Dwain Preciado [id number] [phone] for my opinion regarding abdominal pain. My final recommendation will be communicated back to the requesting physician by way of shared medical record or letter. Pain present for the past 10 months. Pain is located in LLQ Pain is sharp/stabbing dull/aching Pain severity is 8/10 Pain radiates down the leg sometimes Pain is associated with bulge; also complains of alternating diarrhea and constipation as well as heartburn Pain is worse with bending, coughing, lifting Pain is better with hernia belt and heating pad No past medical history on file.No past surgical history on file. Social History Tobacco Use Smoking status: Never Substance Use Topics Alcohol use: Yes FAMILY HISTORY Problem Relation Age of Onset Colon Cancer Father Colon Cancer Brother REVIEW OF SYSTEMS GENERAL: No weight loss or malaise, Positive for fatigue and fevers. HEENT: Negative for frequent or significant headaches, Negative for changes in hearing, vision or dizziness, Negative for nose bleeds, Positive for difficulty swallowing and hoarsness RESPIRATORY: Negative for cough, hemoptysis, wheezing or shortness of breath CARDIOVASCULAR: Negative for chest pain, leg swelling or palpitations. GI: SEE HPI : No history of dysuria, hematuria, frequency or incontinence. SKIN: Negative for lesions, rash, and itching NEURO: No history of syncope, paralysis, seizures or tremors; Positive for migraines PHYSICAL EXAMINATION BP (!) 112/44 Pulse 76 Ht 162.6 cm (5' 4 ) Wt 45.2 kg (99 lb 10.4 oz) SpO2 99% BMI 17.10 kg/m General Appearance: Well appearing, alert, in no acute distress, well-hydrated, well nourished., Thin. Skin: Color, texture, turgor normal, no suspicious rashes or lesions Head: Normocephalic, no masses, lesions, tenderness or abnormalities Neck: Supple, no adenopathy; Lungs: Clear to auscultation. No wheezing, rhonchi, rales Heart: RRR without murmur, gallop, or rubs. No ectopy Abdomen: Soft, non-tender. Bowel sounds normal. No masses, organomegaly; thin skin palpable masses in subcutaneous tissue without obvious bulge Extremities: No ankle edema. Lymph Nodes: No cervical lymphadenopathy, No supraclavicular lymphadenopathy, Assessment History of left inguinal hernia repair LLQ pain Plan: Discussed checking a CT to further evaluate complaint of left groin pain given 2 prior hernia repairs at that location. She appeared to understand and accepted at this time. Attending note: Patient seen by Mine Hernandez RN and myself. I personally examined the patient, all components above personally confirmed, note attended where appropriate. History and exam as noted above reviewed. Agree with plan as discussed above. Kings Landers III, MD cc: Referring provider Dwain Preciado [address] [place] [id number] [facility] 01-24-2024 History and physical note Ms. Barksdale is here today at the request of Dwain Martinez [facility] [id number] for my opinion regarding abdominal pain. My final recommendation will be communicated back to the requesting physician by way of shared medical record or letter. Pain present for the past 10 months. Pain is located in LLQ Pain is sharp/stabbing dull/aching Pain severity is 8/10 Pain radiates down the leg sometimes Pain is associated with bulge; also complains of alternating diarrhea and constipation as well as heartburn Pain is worse with bending, coughing, lifting Pain is better with hernia belt and heating pad No past medical history on file.No past surgical history on file. Social History Tobacco Use Smoking status: Never Substance Use Topics Alcohol use: Yes FAMILY HISTORY Problem Relation Age of Onset Colon Cancer Father Colon Cancer Brother REVIEW OF SYSTEMS GENERAL: No weight loss or malaise, Positive for fatigue and fevers. HEENT: Negative for frequent or significant headaches, Negative for changes in hearing, vision or dizziness, Negative for nose bleeds, Positive for difficulty swallowing and hoarsness RESPIRATORY: Negative for cough, hemoptysis, wheezing or shortness of breath CARDIOVASCULAR: Negative for chest pain, leg swelling or palpitations. GI: SEE HPI : No history of dysuria, hematuria, frequency or incontinence. SKIN: Negative for lesions, rash, and itching NEURO: No history of syncope, paralysis, seizures or tremors; Positive for migraines PHYSICAL EXAMINATION BP (!) 112/44 Pulse 76 Ht 162.6 cm (5' 4 ) Wt 45.2 kg (99 lb 10.4 oz) SpO2 99% BMI 17.10 kg/m General Appearance: Well appearing, alert, in no acute distress, well-hydrated, well nourished., Thin. Skin: Color, texture, turgor normal, no suspicious rashes or lesions Head: Normocephalic, no masses, lesions, tenderness or abnormalities Neck: Supple, no adenopathy; Lungs: Clear to auscultation. No wheezing, rhonchi, rales Heart: RRR without murmur, gallop, or rubs. No ectopy Abdomen: Soft, non-tender. Bowel sounds normal. No masses, organomegaly; thin skin palpable masses in subcutaneous tissue without obvious bulge Extremities: No ankle edema. Lymph Nodes: No cervical lymphadenopathy, No supraclavicular lymphadenopathy, Assessment History of left inguinal hernia repair LLQ pain Plan: Discussed checking a CT to further evaluate complaint of left groin pain given 2 prior hernia repairs at that location. She appeared to understand and accepted at this time. Attending note: Patient seen by Mine Hernandez RN and myself. I personally examined the patient, all components above personally confirmed, note attended where appropriate. History and exam as noted above reviewed. Agree with plan as discussed above. Kings Landers III, MD cc: Referring provider Dwain Preciado [id number] [facility] [id number] documented in this encounter [facility] 01-22-2024 Note Patient Outreach (IN [facility]) SYLVIA BARKSDALE ([id number]) 1970 F Date Time Provider Department 01/22/24 DWAIN PRECIADO During your visit today, we recorded the following information about you: Allergies As of Date: 01/22/2024 (No Known Allergies) Date Reviewed: 01/20/2024 Reviewed by: Vivienne Ordaz MA - Fully Assessed Visit Diagnosis:Encounter for screening mammogram for breast cancer [Z12.31] Order(s):WHITLEY SCREENING W KATHY [[id number]] Order #: [id number] FUTURE Prescriptions as of 01/27/2024 - iv contrast (will be provided with radiology test) CT ABD/PEL -Inject, intravenously, once for 1 dose.No IV access, insert saline lock prior to the beginning of sedation, infusion, injection of imaging exam. Discontinue saline lock post exam. If Pt. has a central line or IVAD, may access for administration according to line specific nursing protocol. Once exam is complete flush line and de-access according to line specific nursing protocol in the CT contrast administration guidelines link. - enteric contrast (will be provided with radiology test) For CT ABD/PEL W IVCON Routine order Administer, As Directed One Time Only, via Oral, Rectal, both Oral and Rectal, Enteric Tube, Stoma or Indwelling Catheter, Enteric Contrast as designated per enteric contrast guidelines Problem List As Of Date: 01/22/2024 (None) Encounter Status:Closed by VALERY POLK on 01/27/24 [facility] 01-21-2024 Telephone encounter Note Patient called on January 21, 2024 at 3:45 PM to schedule their MSK US exam. Pt declined to schedule due to availability. [facility] 01-21-2024 Miscellaneous Notes Patient called on January 21, 2024 at 3:45 PM to schedule their MSK US exam. Pt declined to schedule due to availability. Called patient on January 21, 2024 at 11:00 AM to schedule their MSK US exam. No answer, left VM, 1st attempt. Visit Type: US MSK1 Visit Length: 45 OR 60 MINUTES Order Name/Protocol: US HIP LT; MEDIAL-EVAL FOR LT INGUINAL HERNIA, S/P SURGERY Preferred Provider: N/A Comment: N/A Location: MAIN OR SPORTS Slot held: N/A documented in this encounter [facility] 01-21-2024 Telephone encounter Note Called patient on January 21, 2024 at 11:00 AM to schedule their MSK US exam. No answer, left VM, 1st attempt. [facility] 01-21-2024 Telephone encounter Note Visit Type: US MSK1 Visit Length: 45 OR 60 MINUTES Order Name/Protocol: US HIP LT; MEDIAL-EVAL FOR LT INGUINAL HERNIA, S/P SURGERY Preferred Provider: N/A Comment: N/A Location: MAIN OR SPORTS Slot held: N/A [facility] 01-20-2024 Telephone encounter Note Pt has order for US Hip I am directed to refer to you for scheduling. [facility] 01-20-2024 Miscellaneous Notes Pt has order for US Hip I am directed to refer to you for scheduling. documented in this encounter [facility] 01-20-2024 Instructions Dwain Preciado, - 01/20/2024 5:22 PM EDT Images from the original note were not included. Bowel Preparation Instructions for: Miralax-Gatorade Preparations IF YOU DO NOT FOLLOW THESE DIRECTIONS, YOUR COLONOSCOPY WILL BE CANCELLED. Yang Instructions: Your bowel must be empty so that your doctor can clearly view your colon. Follow all of the instructions in this handout EXACTLY as they are written. Do NOT eat any solid food the ENTIRE day before your colonoscopy. Buy your bowel preparation at least 5 days before your colonoscopy. Four (4) Dulcolax laxative tablets containing 5mg of bisacodyl each (NOT Dulcolax stool softener) One (1) 8.3oz. bottle Miralax (238 grams) or generic equivalent 2 x 32oz. Bottles of Gatorade (NOT RED) Diabetic Patients: Use G2 (Gatorade 2) TRANSPORTATION on the Day of Your Exam A responsible adult MUST be present with you at Check In prior to your colonoscopy and REMAIN in the endoscopy area until you are discharged. You are NOT ALLOWED to drive, take a taxi or bus, or leave the Endoscopy Center ALONE. If you do not have a responsible helper/driver (family member or friend) with you to take you home, your exam cannot be done with sedation and will be cancelled. Please bring a list of all of your current medications, including any Zwll-rci-Abcjdis medications with you. Medications If you take insulin, diabetic medications or blood thinners such as Coumadin (warfarin), Plavix (clopidogrel), Ticlid (ticlopidine hydrochloride), Agrylin (anagrelide), Xarelto (Rivaroxaban), Pradaxa (Dabigatran), Eliquis (Apixaban), and Effient (Prasugrel). You MUST call the doctors who orders those medicines for instructions on altering the dosage before your colonoscopy. All other medications should be taken the day of the exam with a sip of water including ASPIRIN. Five (5) Days Before Your Colonoscopy Do NOT take medicines that stop diarrhea - such as Imodium, Kaopectate, or Pepto Bismol. Do NOT take fiber supplements - such as Metamucil, Citrucel, or Perdiem. Do NOT take products that contain iron - such as multi-vitamins (the label lists what is in the products). Three (3) Days Before Your Colonoscopy Do NOT eat high-fiber foods - such as popcorn, beans, seeds (flax, sunflower, quinoa), multigrain bread, nuts, salad/vegetables, or fresh and dried fruit. 1 Bowel Preparation Instructions for: Miralax-Gatorade Preparations One (1) Day Before Your Colonoscopy Only drink clear liquids the ENTIRE DAY before your colonoscopy. Do NOT eat any solid foods. Drink at least 8 ounces of clear liquids every hour after waking up. The clear liquids you can drink include: Clear Liquid (NO RED LIQUIDS) DO NOT DRINK Gatorade, Pedialyte or Powerade Clear broth or bouillon Coffee or tea (no milk or non-dairy creamer) Carbonated and non-carbonated soft drinks Kimani-Aid or other fruit flavored drinks Strained fruit juices (no pulp) Jell-O, popsicles, hard candy Water Alcohol Milk or non-dairy creamers Noodles or vegetables in soup Juice with pulp Liquid you cannot see through Do not use tobacco/vaping products Mix 1/2 of Miralax bottle (119 grams) in each 32 ounces of Gatorade bottle until dissolved. Keep cool in the refrigerator. DO NOT ADD ICE. The bowel preparation solution will be consumed in two parts. Part 1 5:00 PM - Evening before your colonoscopy Take 4 Dulcolax tablets. 6 PM - Evening before your colonoscopy Drink 32 oz. of the mixed solution. Drink an 8 oz. glass of bowel preparation every 15 minutes for a total of 4 glasses. Fifteen (15) minutes later, drink an 8 oz. glass of of clear liquids every 15 minutes for a total of 2 glasses. You may continue to drink clear liquids till midnight. Part 2 On the day of your colonoscopy you may drink clear liquids up to (three) 3 hours prior to procedure. 4 1/2 hours before your colonoscopy Take another 32 oz. bottle of mixed solution. Drink an 8 oz. glass of bowel prep every 15 minutes for a total of 4 glasses. Fifteen (15) minutes later, drink an 8 oz. glass of clear liquids every 15 minutes for a total of 2 glasses. You may continue to drink clear liquids up to (three) 3 hours before your exam. 2 04/2019 documented in this encounter [facility] 01-20-2024 Note HNO ID: [id number] Author: DWAIN PRECIADO DO Service: ? Author Type: Physician Type: Progress Notes Filed: 01/20/2024 17:37 Note Text: CC: Sylvia Barksdale is a 53 year old female who presents for establish care. HPI: 53 y/o female with a h/o tobaco use disorder presents for physical and to seek second opinion on left groin mass. Currently taking no prescribed medications. Describes an issue with diffuse lymphadenopathy (groin, neck, axilla) in September 2023. She had preceding sxs of viral illness ( a flu ). She is currently taking a supplement called Super Lymphatic Cleanse. Left inguinal hernia----was scheduled to see Dr. Landers on 12/09/23 but missed appt due to concerns she had for ongoing infections (?) related to her LAD. Her symptoms include months of left groin pain with intermittent bulge. Patient reports historically having inguinal hernia repair x2 with mesh to this area. She had CT A/P without contrast at [facility] with written report today that demonstrated no pathology in her left groin. The pain is worse with activity. Tobacco use disorder---smokes ~1 ppd. Not interested in quitting. Drinks EtOH socially. Family hx updated in EMR, includes colon cancer in father and brother. 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 Stays active with odd jobs. Has labs from [facility] ER in October 2023 visit including LDL cholesterol. Apart from mild neutrophilic leukocytosis, rest of CBC, CMP, TSH, vit D, and lipid panel wnl REVIEW OF SYSTEMS GENERAL: No weight loss, malaise or fevers HEENT: Negative for frequent or significant headaches, No changes in hearing or vision, no nose bleeds or other nasal problems NECK: Negative for lumps, goiter, pain and significant neck swelling RESPIRATORY: Negative for cough, hemoptysis, wheezing, or shortness of breath CARDIOVASCULAR: Negative for chest pain, leg swelling, or palpitations GI: No nausea, vomiting, or diarrhea : No history of dysuria, frequency or incontinence MUSCULOSKELETAL: See HPI SKIN: Negative for lesions, rash, and itching PSYCH: Negative for sleep disturbance, mood disorder and recent psychosocial stressors HEMATOLOGY/LYMPHOLOGY: Negative for prolonged bleeding, bruising easily or swollen nodes ENDOCRINE: Negative for cold or heat intolerance, polyuria, polydipsia and goiter NEURO: No history of headaches, syncope, paralysis, seizures or tremors Past Medical, Surgical, Family, and Social History reviewed with patient and in [facility] Medications and Allergies reviewed with patient and in [facility] BP 117/74 Pulse 80 KP PHYSICAL EXAM: General appearance: Well appearing, alert, in no acute distress, well-hydrated Skin: Skin color, texture, turgor normal, no suspicious rashes or lesions Head: Normocephalic, no masses, lesions, tenderness or abnormalities Eyes: Anicteric sclera. Extraocular movements are intact. Neck: Supple, no adenopathy; thyroid symmetric, normal size Lungs: lungs clear to auscultation. No wheezing, rhonchi, rales Heart: RRR without murmur Groin: Examined with female sheetrock applicator. Small, ~2cm in diameter palpable mass to left inguinal area that is tender and firm. Not easily reducible Abdomen: Abdomen soft, non-tender. No masses, organomegaly Extremities: No deformities, edema, skin discoloration, clubbing or cyanosis Musculoskeletal: No joint swelling, deformity, or tenderness Neuro: Gait normal. ASSESSMENT/PLAN: 1. Annual physical exam - ICD9: V70.0, ICD10: Z00.00 (primary diagnosis) - Counseled on healthy diet and regular exercise 2. Special screening for malignant neoplasms, colon - ICD9: V76.51, ICD10: Z12.11 - COLONOSCOPY SCREENING 3. Encounter for screening examination for other mental health and behavioral disorders - ICD9: V79.8, ICD10: Z13.39 - ANXIETY SCREENING 4. Screening for depression - ICD9: V79.0, ICD10: Z13.31 - DEPRESSION SCREENING 5. Left groin mass - ICD9: 789.39, ICD10: R19.09 - Possible hernia, eval with US and refer to gen surg per patient request - US HIP LEFT - CONSULT TO GENERAL SURGERY 6. Tobacco use disorder - ICD9: 305.1, ICD10: F17.200 - Cessation encouraged. Patient not contemplating quitting at this time - Physiologic and physical aspects of tobacco addiction as well as strategies for quitting were discussed. - Counseling was given 3 minutes. F/u in 6 months to address rest of health maintenance tasks including routine cancer screening. May schedule CSY today Dwain Preciado DO January 20, 2024 5:05 PM This note was partially generated using Fancred voice recognition system, and there may be some incorrect words, spellings, and punctuation that were not noted in checking the note before saving. . [facility] 01-20-2024 History of Present illness Narrative CC: Sylvia Barksdale is a 53 year old female who presents for establish care. HPI: 53 y/o female with a h/o tobaco use disorder presents for physical and to seek second opinion on left groin mass. Currently taking no prescribed medications. Describes an issue with diffuse lymphadenopathy (groin, neck, axilla) in September 2023. She had preceding sxs of viral illness ( a flu ). She is currently taking a supplement called Super Lymphatic Cleanse. Left inguinal hernia----was scheduled to see Dr. Landers on 12/09/23 but missed appt due to concerns she had for ongoing infections (?) related to her LAD. Her symptoms include months of left groin pain with intermittent bulge. Patient reports historically having inguinal hernia repair x2 with mesh to this area. She had CT A/P without contrast at [facility] with written report today that demonstrated no pathology in her left groin. The pain is worse with activity. Tobacco use disorder---smokes ~1 ppd. Not interested in quitting. Drinks EtOH socially. Family hx updated in EMR, includes colon cancer in father and brother. 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 Stays active with odd jobs. Has labs from [facility] in October 2023 visit including LDL cholesterol. Apart from mild neutrophilic leukocytosis, rest of CBC, CMP, TSH, vit D, and lipid panel wnl REVIEW OF SYSTEMS GENERAL: No weight loss, malaise or fevers HEENT: Negative for frequent or significant headaches, No changes in hearing or vision, no nose bleeds or other nasal problems NECK: Negative for lumps, goiter, pain and significant neck swelling RESPIRATORY: Negative for cough, hemoptysis, wheezing, or shortness of breath CARDIOVASCULAR: Negative for chest pain, leg swelling, or palpitations GI: No nausea, vomiting, or diarrhea : No history of dysuria, frequency or incontinence MUSCULOSKELETAL: See HPI SKIN: Negative for lesions, rash, and itching PSYCH: Negative for sleep disturbance, mood disorder and recent psychosocial stressors HEMATOLOGY/LYMPHOLOGY: Negative for prolonged bleeding, bruising easily or swollen nodes ENDOCRINE: Negative for cold or heat intolerance, polyuria, polydipsia and goiter NEURO: No history of headaches, syncope, paralysis, seizures or tremors Past Medical, Surgical, Family, and Social History reviewed with patient and in [facility] Medications and Allergies reviewed with patient and in Epic BP 117/74 Pulse 80 KP PHYSICAL EXAM: General appearance: Well appearing, alert, in no acute distress, well-hydrated Skin: Skin color, texture, turgor normal, no suspicious rashes or lesions Head: Normocephalic, no masses, lesions, tenderness or abnormalities Eyes: Anicteric sclera. Extraocular movements are intact. Neck: Supple, no adenopathy; thyroid symmetric, normal size Lungs: lungs clear to auscultation. No wheezing, rhonchi, rales Heart: RRR without murmur Groin: Examined with female sheetrock applicator. Small, ~2cm in diameter palpable mass to left inguinal area that is tender and firm. Not easily reducible Abdomen: Abdomen soft, non-tender. No masses, organomegaly Extremities: No deformities, edema, skin discoloration, clubbing or cyanosis Musculoskeletal: No joint swelling, deformity, or tenderness Neuro: Gait normal. ASSESSMENT/PLAN: 1. Annual physical exam - ICD9: V70.0, ICD10: Z00.00 (primary diagnosis) - Counseled on healthy diet and regular exercise 2. Special screening for malignant neoplasms, colon - ICD9: V76.51, ICD10: Z12.11 - COLONOSCOPY SCREENING 3. Encounter for screening examination for other mental health and behavioral disorders - ICD9: V79.8, ICD10: Z13.39 - ANXIETY SCREENING 4. Screening for depression - ICD9: V79.0, ICD10: Z13.31 - DEPRESSION SCREENING 5. Left groin mass - ICD9: 789.39, ICD10: R19.09 - Possible hernia, eval with US and refer to gen surg per patient request - US HIP LEFT - CONSULT TO GENERAL SURGERY 6. Tobacco use disorder - ICD9: 305.1, ICD10: F17.200 - Cessation encouraged. Patient not contemplating quitting at this time - Physiologic and physical aspects of tobacco addiction as well as strategies for quitting were discussed. - Counseling was given 3 minutes. F/u in 6 months to address rest of health maintenance tasks including routine cancer screening. May schedule CSY today Dwain Preciado DO January 20, 2024 5:05 PM This note was partially generated using Fancred voice recognition system, and there may be some incorrect words, spellings, and punctuation that were not noted in checking the note before saving. . documented in this encounter [facility] 12-06-2023 Telephone encounter Note Spoke with patient as I referred the scanned documents and wanted more information. Per patient she has a hernia in the groin again and it has been repaired at least 3-4 times per patient. I informed patient that if this is the case then she needs to see Hernia team as would be considered complex due to those numerous repairs. Patient voiced understanding. Patient then states she has some groin lymph nodes and other enlarged lymph nodes and was supposed to see Internal Medicine for a work up and that this is her primary focus and does not want to see anyone around where she lives as she feels it is very complex. I informed patient I dont see a referral for IM but again if having involved issues she may want to see someone at ( patient would prefer one location of services). Informed I am cancelling appt for Saturday and I will see if our rehabilitation aide/scheduler can reach out to IM for an appt as she wants that appt first before a hernia Team appt. [facility] 12-06-2023 Miscellaneous Notes Spoke with patient as I referred the scanned documents and wanted more information. Per patient she has a hernia in the groin again and it has been repaired at least 3-4 times per patient. I informed patient that if this is the case then she needs to see Hernia team as would be considered complex due to those numerous repairs. Patient voiced understanding. Patient then states she has some groin lymph nodes and other enlarged lymph nodes and was supposed to see Internal Medicine for a work up and that this is her primary focus and does not want to see anyone around where she lives as she feels it is very complex. I informed patient I dont see a referral for IM but again if having involved issues she may want to see someone at ( patient would prefer one location of services). Informed I am cancelling appt for Saturday and I will see if our rehabilitation aide/scheduler can reach out to for an appt as she wants that appt first before a hernia Team appt. documented in this encounter [facility] 11-14-2023 Hospital Discharge instructions Patient Education 11/14/2023 16:59:22 Abdominal Pain, Adult Abdominal Pain, Adult Pain in the abdomen (abdominal pain) can be caused by many things. Often, abdominal pain is not serious and it gets better with no treatment or by being treated at home. However, sometimes abdominal pain is serious. Your health care provider will ask questions about your medical history and do a physical exam to try to determine the cause of your abdominal pain. Follow these instructions at home: Medicines Take pabi-xks-iakaego and prescription medicines only as told by your health care provider. Do not take a laxative unless told by your health care provider. General instructions Watch your condition for any changes. Drink enough fluid to keep your urine pale yellow. Keep all follow-up visits as told by your health care provider. This is important. Contact a health care provider if: Your abdominal pain changes or gets worse. You are not hungry or you lose weight without trying. You are constipated or have diarrhea for more than 2 3 days. You have pain when you urinate or have a bowel movement. Your abdominal pain wakes you up at night. Your pain gets worse with meals, after eating, or with certain foods. You are vomiting and cannot keep anything down. You have a fever. You have blood in your urine. Get help right away if: Your pain does not go away as soon as your health care provider told you to expect. You cannot stop vomiting. Your pain is only in areas of the abdomen, such as the right side or the left lower portion of the abdomen. Pain on the right side could be caused by appendicitis. You have bloody or black stools, or stools that look like tar. You have severe pain, cramping, or bloating in your abdomen. You have signs of dehydration, such as: ?Dark urine, very little urine, or no urine. ?Cracked lips. ?Dry mouth. ?Sunken eyes. ?Sleepiness. ?Weakness. You have trouble breathing or chest pain. Summary Often, abdominal pain is not serious and it gets better with no treatment or by being treated at home. However, sometimes abdominal pain is serious. Watch your condition for any changes. Take xtru-wlc-vsssdcd and prescription medicines only as told by your health care provider. Contact a health care provider if your abdominal pain changes or gets worse. Get help right away if you have severe pain, cramping, or bloating in your abdomen. This information is not intended to replace advice given to you by your health care provider. Make sure you discuss any questions you have with your health care provider. Document Revised: 07/01/2020 Document Reviewed: 09/21/2019 [employer] Patient Education 2022 [employer]. Follow Up Care 11/14/2023 14:43:44 With:Yuri LEA Address: [address], [facility] [address] [address]- Business (1) When:11/17/2023 16:51:32 With:CRISTIANE JEREZ Address: [address] [place] [address]- [phone] Business (1) When:Within 3 Day(s) [facility] Evaluation + Plan note No data available for this section [facility] Evaluation note Diagnosis Annual physical exam- Primary Routine general medical examination at a health care facility Special screening for malignant neoplasms, colon Encounter for screening examination for other mental health and behavioral disorders Screening for depression Left groin mass Tobacco use disorder [facility] Diagnosis Reducible left inguinal hernia- Primary Left groin mass History of left inguinal hernia repair Personal history of surgery to other organs LLQ pain Abdominal pain, left lower quadrant Left lower quadrant abdominal pain [facility] Diagnosis Encounter for screening mammogram for breast cancer [facility] Diagnosis Left lower quadrant abdominal pain [facility] Diagnosis Recurrent left inguinal hernia- Primary Inguinal hernia without mention of obstruction or gangrene, recurrent unilateral or unspecified [facility] Diagnosis 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 Recurrent left inguinal hernia Inguinal hernia without mention of obstruction or gangrene, recurrent unilateral or unspecified [facility] Diagnosis Left groin pain- Primary Abdominal pain, left lower quadrant [facility] Diagnosis TYREL (generalized anxiety disorder) Generalized anxiety disorder Moderate episode of recurrent major depressive disorder (HCC) Bipolar 1 disorder with moderate saeid (HCC) Bipolar I disorder, most recent episode (or current) manic, moderate documented [facility] encounter [facility] Diagnosis Unintentional weight loss Loss of weight Pre-op testing Preoperative examination, unspecified Encounter for screening colonoscopy- Primary Special screening for malignant neoplasms, colon Encounter for screening colonoscopy Special screening for malignant neoplasms, colon documented in this encounter [facility] Diagnosis Pre-op testing Preoperative examination, unspecified Encounter for screening colonoscopy Special screening for malignant neoplasms, colon documented in this encounter [facility] No data available for this section [facility] Diagnostic Procedure Only (Routine) - New Request Specialty Diagnoses / Procedures Referred By Eddie rivera Referred To Contact [facility] Diagnoses Encounter for screening mammogram for breast cancer Procedures WHITLEY SCREENING W KATHY SCREENING DIGITAL BREAST TOMOSYNTHESIS BI SCREENING MAMMOGRAPHY BI 2-[place] [address] [place] [address] [facility] [address] [place] [address] Referral ID Status Reason Start Date Expiration Date Visits Requested Visits Authorized [id number] New Request Auto-Generat ed Referral 01/22/2024 02/20/2025 1 1 [facility] for referral (narrative)* Consultation (Routine) - New Request Specialty Diagnoses / Procedures Referred By Eddie t Referred To Contact Spine Diagnoses Left groin pain Sheila Bernabe MD [address] [facility] [address] [place] [address] Referral ID Status Reason Start Date Expiration Date V isits Requested Visits Authorized [id number] New Request 04/01/2024 04/26/2025 1 1 [facility] Summary Purpose Family History No Family History Records FoundNo Family History Records FoundNo Family History Records FoundNo Family History Records FoundNo Family History Records FoundNo Family History Records FoundNo Family History Records FoundNo Family History Records FoundNo Family History Records FoundNo Family History Records Found No data available for this section No Family History Records FoundNo Family History Records FoundNo Family History Records FoundNo Family History Records FoundNo Family History Records Found Advance Directives No Advanced Directives Records FoundDocuments on File Type Date Recorded 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 Advance Directives and Living Will 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 Latest Code Status on File Code Status Date Activated Date Inactivated Comments Full Code 11/06/2019 6:02 PM Date Activated Date Inactivated Comments 11/06/2019 6:02 PM 11/13/2019 7:07 PM Date Activated Date Inactivated Comments 11/06/2019 6:02 PM 11/13/2019 7:07 PM Reason for Referral Specialty Diagnoses / Procedures Referred By Contac t Referred To Contact General Surgery Diagnoses Malrotation of intestine Procedures CONSULT TO GENERAL SURGERY OFFICE/OUTPATIENT NEW HIGH MDM 60 MINUTES Dave Sena MD [address] [place] [address] Peter Angulo MD [address] [place] [address] Referral ID Status Reason Start Date Expiration Date Visits Requested Visits Authorized [id number] Authorized PCP Requested Referral 03/09/2025 1 1 Specialty Diagnoses / Procedures Referred By Contac t Referred To Contact [facility] Diagnoses Recurrent left inguinal hernia Procedures US HIP LEFT US COMPL JOINT R-T W/IMAGE DOCUMENTATION Dave Sena MD [address] [place] [address] [place] [address] Referral ID Status Reason Start Date Expiration Date Visits Requested Visits Authorized [id number] New Request Auto-Generat ed Referral 4 04/08/2025 1 1 Specialty Diagnoses / Procedures Referred By Contac t Referred To Contact General Surgery Diagnoses Recurrent left inguinal hernia Procedures CONSULT TO GENERAL SURGERY OFFICE/OUTPATIENT [facility] 60 MINUTES Leora Mei PA-C [address] [place] [address] Referral ID Status Reason Start Date Expiration Date Visits Requested Visits Authorized [id number] Authorized PCP Requested Referral 02/11/2024 02/10/2025 1 1 Specialty Diagnoses / Procedures Referred By Contac t Referred To Contact CT IMAGING Diagnoses Left lower quadrant abdominal pain Procedures CT ABD/PEL W IVCON CT ABD & PELVIS W/CONTRAST Kings Landers III, MD [address] [place] [address] [address] [place] [address] Referral ID Status Reason Start Date Expiration Date Visits Requested Visits Authorized [id number] Authorized Auto-Generat ed Referral 01/24/2024 02/23/2024 2 2 Specialty Diagnoses / Procedures Referred By Contac t Referred To Contact General Surgery Diagnoses Left groin mass Procedures CONSULT TO GENERAL SURGERY OFFICE/OUTPATIENT [facility] 60 [place] [address] [place] [address] Referral ID Status Reason Start Date Expiration Date Visits Requested Visits Authorized [id number] Authorized PCP Requested Referral 01/20/2024 01/19/2025 1 1 Specialty Diagnoses / Procedures Referred By Contac t Referred To Contact [facility] Diagnoses Left groin mass Procedures US HIP LEFT US COMPL JOINT R-T W/[place] [address] [place] [address] [place] [address] Referral ID Status Reason Start Date Expiration Date Visits Requested Visits Authorized [id number] New Request Auto-Generat ed Referral 01/20/2024 02/18/2025 1 1 Specialty Diagnoses / Procedures Referred By Contac t Referred To Contact [facility] Diagnoses Special screening for malignant neoplasms, colon Procedures COLONOSCOPY SCREENING COLONOSCOPY FLX DX W/COLLJ SPE[place] [address] [place] [address] [facility] [address] [place] [address] Referral ID Status Reason Start Date Expiration Date Visits Requested Visits Authorized [id number] Authorized Auto-Generat ed Referral 01/20/2024 01/19/2025 1 1 Additional Source Comments INFORMATION SOURCE (unrecogn ized section and content) DATE CREATED AUTHOR 12/14/2017 [facility] DATE CREATED AUTHOR AUTHOR'S ORGANIZ ATION 11/19/2019 [facility] DATE CREATED AUTHOR AUTHOR'S ORGANIZ ATION 12/12/2019 [facility] DATE CREATED AUTHOR AUTHOR'S ORGANIZ ATION 08/24/2022 [facility] DATE CREATED AUTHOR AUTHOR'S ORGANIZ ATION 10/20/2023 [facility] DATE CREATED AUTHOR AUTHOR'S ORGANIZ ATION 12/15/2023 [facility] DATE CREATED AUTHOR AUTHOR'S ORGANIZ ATION 03/29/2024 [facility] DATE CREATED AUTHOR AUTHOR'S ORGANIZ ATION 04/03/2024 [facility] DATE CREATED AUTHOR AUTHOR'S ORGANIZ ATION 06/26/2024 [facility] DATE CREATED AUTHOR AUTHOR'S ORGANIZ ATION 08/13/2024 [facility] Patient Care team informatio n (unrecognized section and content) Crop Supervisor Relationship Specialty Start Date End Date Cristiane Jerez CNP [address] [place] [address] Internal Medicine 11/27/23 Crop Supervisor Relationship Specialty Start [place] [address] [place] [address] PCP - General Internal Medicine 01/20/24 Cristiane Jerez, AUTOMOTIVE INSTRUCTOR.DERRICK HELPER [address] [place] [address] Internal Medicine 11/27/23 Crop Supervisor Relationship Specialty Start [place] [address] [place] [address] PCP - General Internal Medicine 01/20/24 Cristiane Jerez, AUTOMOTIVE INSTRUCTOR.DERRICK HELPER [address] [place] [address] Internal Medicine 11/27/23 Crop Supervisor Relationship Specialty Start [place] [address] [place] [address] PCP - General Internal Medicine 01/20/24 Cristiane Jerez, AUTOMOTIVE INSTRUCTOR.DERRICK HELPER [address] [place] [address] Internal Medicine 11/27/23 Crop Supervisor Relationship Specialty Start [place] [address] [place] [address] PCP - General Internal Medicine 01/20/24 Cristiane Jerez, AUTOMOTIVE INSTRUCTOR.DERRICK HELPER [address] [place] [address] Internal Medicine 11/27/23 Crop Supervisor Relationship Specialty Start Date End Date Ilana Dwain [address] [place] [address] PCP - General Internal Medicine 01/20/24 Cristiane Jerez, AUTOMOTIVE INSTRUCTOR.DERRICK HELPER [address] [place] [address] Internal Medicine 11/27/23 Crop Supervisor Relationship Specialty Start [place] Dw[place] [address] [place] [address] PCP - General Internal Medicine 01/20/24 Cristiane Jerez, AUTOMOTIVE INSTRUCTOR.DERRICK HELPER [address] [place] [address] Internal Medicine 11/27/23 Crop Supervisor Relationship Specialty Start [place]wainDO [address] [place] [address] PCP - General Internal Medicine 01/20/24 Cristiane Jerez, AUTOMOTIVE INSTRUCTOR.DERRICK HELPER [address] [place] [address] Internal Medicine 11/27/23 Crop Supervisor Relationship Specialty Start [place] Dw[place] [address] [place] [address] PCP - General Internal Medicine 01/20/24 Cristiane Jerez, AUTOMOTIVE INSTRUCTOR.DERRICK HELPER [address] [place] [address] Internal Medicine 11/27/23 Crop Supervisor Relationship Specialty Start Date [place] [address] [place] [address] PCP - General Internal Medicine 01/20/24 Cristiane Jerez APRN.DERRICK HELPER [address] [place] [address] Internal Medicine 11/27/23 Crop Supervisor Relationship Specialty Start Date [place] [address] [place] [address] PCP - General Internal Medicine 01/20/24 Cristiane Jerez, MAIN.DERRICK HELPER [address] [place] [address] Internal Medicine 11/27/23 Crop Supervisor Relationship Specialty Start Date End Date AriellaDwain childress [address] [place] [address] PCP - General Internal Medicine 01/20/24 Cristiane Jerez, MAIN.DERRICK HELPER [address] [place] [address] Internal Medicine 11/27/23 Crop Supervisor Relationship Specialty Start Date End Date Elise Schneider APRN - DERRICK HELPER [address] [place] [address] [id number] PCP - General Nurse Practitioner 07/07/24 Crop Supervisor Relationship Specialty Start Date End Date Elise Schneider APRN - DERRICK HELPER [address] [place] [address] [place] [address] PCP - General Nurse Practitioner 07/07/24 Crop Supervisor Relationship Specialty Start Date End Date Elise Schneider APRN - EZEQUIEL [address] [place] [address] [address] [place] [address] PCP - General Nurse Practitioner 07/07/24 Source Comments (unrecognize d section and content) In the event this informatio n is protected by the Federal Confidentiality of Alcohol and Drug Abuse Patient Records regulations: The Federal rules restrict any use of the information to criminally investigate or prosecute any alcohol or drug abuse patient.[facility] the event this information is protected by the Federal Confidentiality of Alcohol and Drug Abuse Patient Records regulations: The Federal rules restrict any use of the information to criminally investigate or prosecute any alcohol or drug abuse patient.[facility] the event this information is protected by the Federal Confidentiality of Alcohol and Drug Abuse Patient Records regulations: The Federal rules restrict any use of the information to criminally investigate or prosecute any alcohol or drug abuse patient.[facility] the event this information is protected by the Federal Confidentiality of Alcohol and Drug Abuse Patient Records regulations: The Federal rules restrict any use of the information to criminally investigate or prosecute any alcohol or drug abuse patient.[facility] the event this information is protected by the Federal Confidentiality of Alcohol and Drug Abuse Patient Records regulations: The Federal rules restrict any use of the information to criminally investigate or prosecute any alcohol or drug abuse patient.[facility] the event this information is protected by the Federal Confidentiality of Alcohol and Drug Abuse Patient Records regulations: The Federal rules restrict any use of the information to criminally investigate or prosecute any alcohol or drug abuse patient.[facility] the event this information is protected by the Federal Confidentiality of Alcohol and Drug Abuse Patient Records regulations: The Federal rules restrict any use of the information to criminally investigate or prosecute any alcohol or drug abuse patient.[facility] the event this information is protected by the Federal Confidentiality of Alcohol and Drug Abuse Patient Records regulations: The Federal rules restrict any use of the information to criminally investigate or prosecute any alcohol or drug abuse patient.[facility] the event this information is protected by the Federal Confidentiality of Alcohol and Drug Abuse Patient Records regulations: The Federal rules restrict any use of the information to criminally investigate or prosecute any alcohol or drug abuse patient.[facility] the event this information is protected by the Federal Confidentiality of Alcohol and Drug Abuse Patient Records regulations: The Federal rules restrict any use of the information to criminally investigate or prosecute any alcohol or drug abuse patient.[facility] the event this information is protected by the Federal Confidentiality of Alcohol and Drug Abuse Patient Records regulations: The Federal rules restrict any use of the information to criminally investigate or prosecute any alcohol or drug abuse patient.[facility] the event this information is protected by the Federal Confidentiality of Alcohol and Drug Abuse Patient Records regulations: The Federal rules restrict any use of the information to criminally investigate or prosecute any alcohol or drug abuse patient.[facility] the event this information is protected by the Federal Confidentiality of Alcohol and Drug Abuse Patient Records regulations: The Federal rules restrict any use of the information to criminally investigate or prosecute any alcohol or drug abuse patient.[facility] Reason for Visit (unrecogniz ed section and content) Reason Comments Establish Care Reason Comments Appointment Reason Comments Consult hernia Specialty Diagnoses / Procedures Referred By Contac t Referred To Contact General Surgery Diagnoses Left groin mass Procedures CONSULT TO GENERAL SURGERY OFFICE/OUTPATIENT [facility] 60 [place] [address] [place] [address] Referral ID Status Reason Start Date Expiration Date V isits Requested Visits Authorized [id number] Closed PCP Requested Referral 01/20/2024 01/19/2025 1 [address] Specialty Diagnoses / Procedures Referred By Contac t Referred To Contact CT IMAGING Diagnoses Left lower quadrant abdominal pain Procedures CT ABD/PEL W IVCON CT ABD & PELVIS W/CONTRAST Kings Landers III, MD [address] [place] [address] [place] [address] Referral ID Status Reason Start Date Expiration Date V isits Requested Visits Authorized [id number] Closed Auto-Generate d Referral 01/24/2024 02/23/2024 2 2 Specialty Diagnoses / Procedures Referred By Contac t Referred To Contact CT IMAGING Diagnoses Left lower quadrant abdominal pain Procedures CT ABD/PEL W IVCON CT ABD & PELVIS W/CONTRAST Kings Landers III, MD [address] [place] [address] [address] [place] [address] Reason Comments Consult Recurrent left ingui nal hernia Specialty Diagnoses / Procedures Referred By Contac t Referred To Contact General Surgery Diagnoses Recurrent left inguinal hernia Procedures CONSULT TO GENERAL SURGERY OFFICE/OUTPATIENT [facility] 60 MINUTES Leora Mei PA-C [address] [place] [address] Referral ID Status Reason Start Date Expiration Date V isits Requested Visits Authorized [id number] Closed PCP Requested Referral 02/11/2024 02/10/2025 1 1 Reason Comments Consult Groin Lump Evaluation of left g roin bulge x 1 year, h/o right inguinal hernia repair x 2. FOR RECORDS PERTAINING TO PATIENTS WHO ARE OR HAVE BEEN ENROLLED IN A CHEMICAL DEPENDENCY/SUBSTANCEABUSE PROGRAM, SOME INFORMATION MAY BE OMITTED. This clinical summary was aggregated from multiple sources. Caution should be exercised in using it in the provision of clinical care. This summary normalizes information from multiple sources, and as a consequence, information in this document may materially change the coding, format and clinical context of patient data. In addition, data may be omitted in some cases. CLINICAL DECISIONS SHOULD BE BASED ON THE PRIMARY CLINICAL RECORDS. [facility] [employer] provides no warranty or guarantee of the accuracy or completeness of information in this document.
== END 2024-08-14 10:05 | disposition home or self-care (01) ==
LOC: LAB 10:05
PROVIDERS: PCP Nurse Practitioner; Visit Provider Nurse Practitioner
DX: D72.829 Elevated white blood cell count, unspecified (principal)
CPT/HCPCS: 36415; 85025

== ENCOUNTER 2025-04-16 08:28 | Outpatient (OUT) | payer OTHER, SELFPAY ==
--- OUTSIDE RECORDS SUMMARY | 2024-03-12 05:30 | XMS_ITS ---
[facility] [address] [place] [address] Care Team Providers Care Assistant Sales Director Name Role Phone Paulina Miranda Primary Care Provider Alaina Kline Unavailable [phone] REASON FOR VISIT CROWN PREP - APPROVED Encounters Encounter Location Date Provider Diagnosis [facility] [address] [place] [address] 03/12/2024 Alaina Kline Plan Of Treatment Next Appt Details Provider Name:Pierce Meléndez, 0 06/08/2025 01:00:00 PM, [address] [place], [address], Progress Notes * PARKER PRIEST MDOB:1970 (54 yo F)Acc No.[id number]:03/12/2024 Patient:?PARKER PRIEST :?Alaina Kline DDSDOB:1970???Age:53 Y ???Sex:FemaleDate:03/12/2024hone:[phone]:[facility], [place], [place]-[address]Pcp:Paulina Tejeda Subjective: * Chief Complaints: * C ROWN PREP - APPROVED Billing Information: * Procedure Codes: * Electronic signature of Alaina Kline DDS on 04/16/2025 at 08:31 AM ESTSign off status: Pending * Provider: Molly Kline DDS Date: 1 Generated for Printing/Faxing/eTransmitting on:?04/16/2025 08:31 AM EST
--- OUTSIDE RECORDS SUMMARY | 2024-07-07 08:00 | XMS_ITS ---
Author Organization [facility] Address [address] [address] Care Team Providers Care Counseling Psychologist Name Role Phone Paulina Miranda Primary Care Provider Alaina Kline Unavailable [phone] REASON FOR VISIT CROWN SEAT Encounters Encounter Location Date Provider Diagnosis [facility] [address] [place] [address] 07/07/2024 Alaina Kline Plan Of Treatment Next Appt Details Provider Name:Pierce Meléndez, 0 06/08/2025 01:00:00 PM, [address] [place], [address], Progress Notes * PARKER PRIEST MDOB:1970 (54 yo F)Acc No.[id number]:07/07/2024 Patient:?PARKER PRIEST :?Alaina Kline DDSDOB:1970???Age:53 Y ???Sex:FemaleDate:07/07/2024Phone:[phone]:[facility], [place], [place]Pcp:Paulina Tejeda Subjective: * Chief Complaints: * C ROWN SEAT * Electronic signature of Alaina Kline DDS on 04/16/2025 at 08:32 AM ESTSign off status: Pending * Provider: Molly Kline DDS Date: 0 07/07/2024 Generated for Printing/Faxing/eTransmitting on:?04/16/2025 08:32 AM EST
--- OUTSIDE RECORDS SUMMARY | 2024-10-05 06:00 | XMS_ITS ---
Author Organization [facility] Address [address] [place] [address] Care Team Providers Care Machine Filler Shredder Name Role Phone ELISE SCHNEIDER CNP Primary Care Provider Unavaila Son Nevarez Unavailable [phone] Temitope Calabrese Unavailable [phone] REASON FOR VISIT 6 WEEK FOLLOW UP Encounters Encounter Location Date Provider Diagnosis [facility] [address] [place] [address] 10/05/2024 Temitope Calabrese Plan Of Treatment No Information Progress Notes * NETTE PRIESTOB:[birth year] (54 yo F)Acc No.[id number]:10/05/2024 Patient:?PARKER PRIEST :?MARQUIS AshleyDOB:1970???Age: 54 Y???Sex:FemaleDate:10/05/2024Phone:[phone]:[address] [place] [address]Pcp:ELISE SCHNEIDER CNP Subjective: * Chief Complaints: * 1 . 6 WEEK FOLLOW UP. * Medical History: Objective: * Vitals: Assessment: Plan: * Treatment: Forms: * Images: * Electronic signature of Temitope Calabrese CNP on 04/16/2025 at 08:31 AM ESTSign off status: Pending * Provider: MARQUIS Adams Date: 0 10/05/2024 Generated for Printing/Faxing/eTransmitting on:?04/16/2025 08:31 AM EST
--- OUTSIDE RECORDS SUMMARY | 2024-10-27 08:15 | XMS_ITS ---
Author Organization [facility] Address [address] [place] [address] Care Team Providers Care Forest Logistics Manager Name Role Phone EILSE SCHNEIDER CNP Primary Care Provider Unavaila Son Nevarez Unavailable [phone] Temitope Calabrese Unavailable [phone] REASON FOR VISIT 6 WEEK FOLLOW UP Encounters Encounter Location Date Provider Diagnosis [facility] [address] [place] [address] 10/27/2024 Temitope Calabrese Plan Of Treatment No Information Progress Notes * NETTE PRIESTOB:[birth year] (54 yo F)Acc No.[id number]:10/27/2024 Patient:?PARKER PRIEST :?MARQUIS AshleyDOB:1970???Age: 54 Y???Sex:FemaleDate:10/27/2024Phone:[phone]:[address] [place] [address]Pcp:ELISE SCHNEIDER CNP Subjective: * Chief Complaints: * 1 . 6 WEEK FOLLOW UP. * Medical History: Objective: * Vitals: Assessment: Plan: * Treatment: Forms: * Images: * Electronic signature of Temitope Calabrese CNP on 04/16/2025 at 08:31 AM ESTSign off status: Pending * Provider: MARQUIS Adams Date: 0 10/27/2024 Generated for Printing/Faxing/eTransmitting on:?04/16/2025 08:31 AM EST
--- OUTSIDE RECORDS SUMMARY | 2025-02-01 06:05 | XMS_ITS ---
Author Organization [facility] Address [address] [place] [address] Care Team Providers Care Training Analyst Name Role Phone Paulina Miranda Primary Care Provider [phone] Alaina Kline Unavailable [phone] REASON FOR VISIT FILLING Encounters Encounter Location Date Provider Diagnosis [facility] [address] [place] [address] 02/01/2025 Alaina Kline Plan Of Treatment Next Appt Details Provider Name:Pierce Meléndez, 0 06/08/2025 01:00:00 PM, [address] [place], [address], Progress Notes * PARKER PRIEST MDOB:1970 (54 yo F)Acc No.[id number]:02/01/2025 Patient:?PARKER PRIEST :?Alaina Kline DDSDOB:1970???Age:54 Y ???Sex:FemaleDate:02/01/2025Phone:[phone]:[facility], [place], [place]Pcp:Paulina Tejeda Subjective: * Chief Complaints: * F ILLING * Electronic signature of Alaina Kline DDS on 04/16/2025 at 08:31 AM ESTSign off status: Pending * Provider: Molly Kline DDS Date: 0 02/01/2025 Generated for Printing/Faxing/eTransmitting on:?04/16/2025 08:31 AM EST
--- OUTSIDE RECORDS SUMMARY | 2025-03-08 05:30 | XMS_ITS ---
Author Organization [facility] Address [address] [place] [address] Care Team Providers Care Filter Worker Name Role Phone Paulina Miranda Primary Care Provider Alaina Kline Unavailable [phone] REASON FOR VISIT FILLING Encounters Encounter Location Date Provider Diagnosis [facility] [address] [place] [address] 03/08/2025 Alaina Kline Plan Of Treatment Next Appt Details Provider Name:Pierce Meléndez, Miranda 06/08/2025 01:00:00 PM, [address] [place], [address], Progress Notes * PARKER PRIEST MDOB:1970 (54 yo F)Acc No.[id number]:03/08/2025 Patient:?PARKER PRIEST :?Alaina Kline DDSDOB:1970???Age:54 Y ???Sex:FemaleDate:03/08/2025Phone:[phone]:[address], [place], [place]Pcp:Paulina Tejeda Subjective: * Chief Complaints: * F ILLING * Electronic signature of Alaina Kline DDS on 04/16/2025 at 08:32 AM ESTSign off status: Pending * Provider: Molly Kline DDS Date: Generated for Printing/Faxing/eTransmitting on:?04/16/2025 08:32 AM EST
--- OUTSIDE RECORDS SUMMARY | 2025-03-15 05:30 | XMS_ITS ---
Author Organization [facility] Address [address] [place] [address] Care Team Providers Care Sheet Metal Assembler And Riveter Name Role Phone Paulina Miranda Primary Care Provider Alaina Kline Unavailable [phone] REASON FOR VISIT FILLING Encounters Encounter Location Date Provider Diagnosis [facility] [address] [place] [address] 03/15/2025 Alaina Kline Plan Of Treatment Next Appt Details Provider Name:Pierce Meléndez, Miranda 06/08/2025 01:00:00 PM, [address] [place], [address], Progress Notes * PARKER PRIEST MDOB:1970 (54 yo F)Acc No.[id number]:03/15/2025 Patient:?PARKER PRIEST :?Alaina Kline DDSDOB:1970???Age:54 Y ???Sex:FemaleDate:03/15/2025Phone:[phone]:[facility], [place], [place]Pcp:Paulina Tejeda Subjective: * Chief Complaints: * F ILLING * Electronic signature of Alaina Kline DDS on 04/16/2025 at 08:31 AM ESTSign off status: Pending * Provider: Molly Kline DDS Date: Generated for Printing/Faxing/eTransmitting on:?04/16/2025 08:31 AM EST
--- OUTSIDE RECORDS SUMMARY | 2025-04-16 08:31 | XMS_ITS | Patient Health Record ---
Author Organization [facility] Address [address] [place] [address] Care Team Providers Care Zipper Repairer Name Role Phone ELISE SCHNEIDER CNP Primary Care Provider Son Patricia Unavailable [phone] Temitope Calabrese Unavailable [phone] Allergies No Known Allergies Reason For Referral No Information Medications Medication SIG (Take, Route, Frequency, Duration) Notes Start Date End Date Status gabapentin 300 mg 1 cap(s) orally twice daily; D uration: 30 days 5ActiveMultivitaminActiveSeroquel 50 mg1 tab(s) orally nightlyActive Tylenol 325 mg2 tab(s) orally every 4 hoursActive Social History Tobacco Use: Social History Observation Description Date Details (start date - stop date) Current Smoker NA - NA Tobacco Control (Standard) Question Answer Notes Tobacco use: Current smoker Problems Problem Type SNOMED Code ICD Code Onset Dates Problem Status W/U Status Risk Notes Problem Neuropathic pain (599793183) Neuropathic pain (M79.2) ActiveconfirmedProblemMononeuropathy of lower limb (058536202)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)ActiveconfirmedProblemNeuralgia of left iliohypogastric nerve (904436631248209)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)Activeconfirmed Vital Signs Blood pressure diastolic 72 mm Hg 08/25/2024 Yihdnt87 in08/25/2024lood pressure mm Hg08/25/20240520Ojendb779 lbs 08/25/2024BMI18.19008/25/2024 Encounters Encounter Location Date Provider Diagnosis [facility] [address] [place] [address] 08/25/2024 Son Black Neuropathic pain M79 .2 ; Ilioinguinal neuralgia of left side G57.92 and Neuralgia of left iliohypogastric nerve G57.82 Assessments Encounter Date Diagnosis (ICD Code) Assessment Notes Treatment Notes Treatment Clinical Notes Section Notes 08/25/2024 Neuropathic pain (ICD-10 - M79.2 ) 08/25/2024Ilioinguinal neuralgia of left side (ICD-10 - G57.92)08/25/2024 Neuralgia of left iliohypogastric nerve (ICD-10 - G57.82)08/25/2024Other After thorough history, physical examination, and review of patient's previous treatments and imaging results, a description of the patient's painful diagnoses was performed. This was discussed with patient today with use of diagrams and plastic models. Risks and benefits associated with treatmentswere discussed and the following plan was developed with the patient: 1. Interventional: The patient may be a candidate for ilioinguinal or iliohypogastric nerve block. At this time, it is too early to say and it is unlikely her insurance would cover. She does have pain associated in this region following surgery which is likely the cause of her neuralgia, however, me dications will be attempted first. 2. Medications: OARRS was reviewed. The patient will be started on GABAPENTIN 300 mg and will increase to twice daily dosing. She will call in 3 weeks if she has not seen much relief and we can increase this further up to either 400 mg or 600 mg, twice daily. 3. Activity: The patient should continue with activity as tolerated. She has already seen several surgeons and additional surgery has not been recommended yet. 4. Follow up: The patient will follow-up with our office in about 6 weeks. She will either remain on the gabapentin dosage if it is helping at 300 mg, twice daily or be on a higher dosage at that time. If she has adverse effects prior to then, she may call our office. This will suffice as an H&P for any interventional procedure. import current medications Plan Of Treatment No Information Insurance Providers Payer Name Payer Address Payer Phone Subscriber Number Group Number Insured Name Patient Relationship to Insured Coverage Start Date Coverage End Date Medicaid [place] [address] [place] [id number] AMAURY PRIESTelf - patient is the insured Medical (General) History Medical History History ICD Code Depression Surgical History Surgery Date(Month/Year) Hernia repair 2022
--- OUTSIDE RECORDS SUMMARY | 2025-04-16 08:32 | XMS_ITS | Patient Health Record ---
Author Organization [facility] Address [address] [place] [address] Care Team Providers Care Geomorphology Teacher Name Role Phone Paulina Miranda Primary Care Provider Alaina Kline Unavailable [phone] Sana Arriola Unavailable [phone] Allergies No Known Allergies Reason For Referral No Information Medications Medication SIG (Take, Route, Frequency, Duration) Notes Start Date End Date Status Fluticasone Propionate 50 MC G/ACT Suspension 2 sprays (1 spray in each nostril) Nasally Once a day; Duration: 30 days 06/28/2023Not-Taking/PRNIbuprofen 800 MG Tablet1 tablet with food or milk as needed Orally Three times a day07/29/2023Not-Taking/PRNFluticasone Propionate 50 MCG/ACT Suspension2 sprays (1 spray in each nostril) Nasally Once a day; Duration: 30 days09/20/2023Not-Taking/PRNOmeprazole 20 MG Capsule Delayed Release1 capsule 30 minutes before morning meal Orally Once a day; Duration: 30 days09/20/2023Not-Taking/PRNCetirizine HCl 10 MG Tablet1 tablet Orally Once a day at bedtime; Duration: 30 days06/28/2023Not-Taking/PRN Social History Tobacco Use: Social History Observation Description Date Details (start date - stop date) Current Smoker NA - NA Social History GeneralSocial InfoQuestionAnswerNotesTransition of Care:ER/UC/hospital since last office visit?NoDepression Screening (PHQ-9):Little interest or pleasure in doing thingsNot at allFeeling down, depressed, or hopelessNot at allTrouble falling or staying asleep, or sleeping too muchNearly every dayFeeling tired or having little energyNearly every dayPoor appetite or overeatingNearly every day Feeling bad about yourself-or that you are a failure or have let yourself or your family downNot at allTrouble concentrating on things, such as reading the newspaper or watching televisionSeveral daysMoving or speaking so slowly that other people could have noticed. Or the opposite being so fidgetyor restless that you have been moving around a lot more than usualNot at allThoughts that you would be better off , or of hurting yourself in some wayNot at allTotal Rzoui69IyqmtpkxtjjpqJyfawhoy DepressionSubstance abuse/mental health issues of patient/familyPatient -DeniesAbility to understand healthcare/treatmentPatient: GoodTobacco Screen:Are you a:current smoker? How often do you smoke cigarettes? every day? How many cigarettes a day do you smoke?21-30Social/Support Concerns: Patient:YesAlcohol Screening:Did you have a drink containing alcohol in the past year?Yes? How often did you have a drink containing alcohol in the past year? Four or more times a week (4 points)? How many drinks did you have on a typical day when you were drinking in the past year?3 or 4 (1 point)Points5 InterpretationPositiveCommunication Barrier:Language Barrier?:YesTobacco Use: Social InfoQuestionAnswerNotesTobacco Control (Standard)Tobacco use:Current smoker? How often do you smoke cigarettes?Every day? How many cigarettes a day do you smoke?21-30 Problems Problem Type SNOMED Code ICD Code Onset Dates Problem Status W/U Status Risk Notes Problem Tobacco user (026318132) Nicotin e dependence, unspecified, uncomplicated (F17.200) ActiveconfirmedProblemChronic rhinitis (69916631)Chronic rhinitis (J31.0)Active confirmedProblemSlow transit constipation (42822418)Slow transit constipation (K59.01)ActiveconfirmedProblemChronic fatigue syndrome (60806244)Chronic fatigue (R53.82)ActiveconfirmedProblemGastroesophageal reflux disease (988138765) Gastroesophageal reflux disease, unspecified whether esophagitis present (K21.9) ActiveconfirmedProblemManic disorder, single episode (042969020)Altered mood associated with saeid (F30.9)Activeconfirmed Encounters Encounter Location Date Provider Diagnosis [facility] [place] [address] 09/17/2024 Sana Arriola Chronic periodontiti s, generalized, slight K05.321 [address] [place] [address] 09/24/2024 Sana Arriola Dental caries on pit and fissure surface penetrating into dentin K02.52 ; Chronic periodontitis, generalized, slight K05.321 and Other dental procedure status Z98.818 [address] [place] [address] 10/22/2024 Alaina Kline Dental caries on pit and fissure surface penetrating into dentin K02.[address] [address] 06/02/2024 Alaina Kline Assessments Encounter Date Diagnosis (ICD Code) Assessment Notes Treatment Notes Treatment Clinical Notes Section Notes 09/17/2024 Chronic periodontitis, generaliz ed, slight (ICD-10 - K05.321) 09/24/2024Dental caries on pit and fissure surface penetrating into dentin (ICD- 10 - K02.52)10/22/2024Dental caries on pit and fissure surface penetrating into dentin (ICD-10 - K02.52)09/24/2024hronic periodontitis, generalized, slight (ICD-10 - K05.321)09/24/2024Other dental procedure status (ICD-10 - Z98.818) Plan Of Treatment Next Appt Details Provider Name:Pierce Fraserzk, 0 06/08/2025 01:00:00 PM, [address] [place], [place] [address], [address], Insurance Providers Payer Name Payer Address Payer Phone Subscriber Number Group Number Insured Name Patient Relationship to Insured Coverage Start Date Coverage End Date [place] Medicaid [address] [place] [address] [id number] PRIESTSesar GREY - patient is the [id number] 2022[facility]ereyePO [address] [place] [id number], KARRIESelf - patient is the mrineik42/11/2023Dental [place] EnvolvePO [address] [address] [place] [id number], KARRIESelf - patient is the /01/2023Dental [facility]ereyePO [address] [place] [address] [id number], KARRIESelf - patient is the insured 2022 Medical (General) History Surgical History Surgery Date(Month/Year) hernia repair x2 Hospitalization History Reason Date(Month/Year) see surgery above
--- OUTSIDE RECORDS SUMMARY | 2025-04-16 08:32 | XMS_ITS | Clinical Summary ---
Author Organization [facility] Address [address] [place] [address] Care Team Providers Care Flatwork Supervisor Name Role Phone Unavailable Primary Care Provider Unavailabl e Allergies No known active allergies Medications MedicationSigDispense QuantityRefillsLast FilledStart DateEnd DateStatus Acetaminophen 325 MG tablet Take 2 tablets by mouth every 4 hours.Active Social History Tobacco UseTypesPacks/DayYears UsedDateSmoking Tobacco: Every DayCigarettes Smokeless Tobacco: Never Tobacco Cessation:Ready to Q uit: Not Asked; Counseling Given: Not Answered Alcohol UseStandard Drinks/WeekCommentsYes2 (1 standard drink = 0.6 oz pure alcohol)12 oz cansCommentsNoSex and Gender InformationValueDate Recorded Sex Assigned at BirthNot on fileLegal EhqOzculp59/15/2024 3:19 PM EDTGender IdentityNot on fileSexual OrientationNot on file Last Filed Vital Signs Vital SignReadingTime TakenCommentsBlood Pressure--Pulse--Temperature-- Respiratory Bqap575506/01/2023 1:36 PM ESTOxygen Saturation--Inhaled Oxygen Concentration--Tutbbb36.4 kg (100 lb)04/01/2024 1:36 PM YCGJjfhdw328.6 cm (5' 4 )04/01/2024 1:36 PM ESTBody Mass Index17.16106/01/2023 1:36 PM EST Plan of Treatment Health MaintenanceDue DateLast DoneCommentsHEPATITIS C VIRUS LLUYSGTSV88/11/1969 ZLUZHGM8009/04/1968HIV SCREENING YCZLYPXZYE14/11/1984HEP B VACCINE (1 of 3 - 19+ 3-dose series)09/05/1987PNEUMOCOCCAL VACCINE SERIES (1 of 2 - PCV)09/05/1987TDAP (ADULT)09/05/1987CERVICAL CANCER SCREENING OOVPUJIDUR26/11/1990LIPID SCREENING 2008MAMMOGRAM SCREENING JKNXLPKGMS37/11/2009COLORECTAL CANCER SCREENING TXHQGOPJFT23/11/2014LUNG CANCER SCREENING GVMXUEPETS41/11/2019ZOSTER (SHINGLES) VACCINE (1 of 2)2018COVID-19 VACCINE (2024- season)2025 INFLUENZA VACCINE (#1)2025 Insurance
--- OUTSIDE RECORDS SUMMARY | 2025-04-16 08:32 | XMS_ITS | Clinical Summary ---
Author Organization [employer] [facility] tem Address [id number] [place] [address] Care Team Providers Care Evp Chief Exploration Officer Name Role Phone Shaikh SANJUANITA Chiang Primary Care Provider [phone] Allergies No known active allergies Medications MedicationSigDispense QuantityRefillsLast FilledStart DateEnd DateStatus acetaminophen (TYLENOL) 325 mg tablet Take by mouth.Active OLANZapine (ZyPREXA) 5 mg tablet Take 5 mg by mouth daily. 11/13/2019Active omeprazole (PriLOSEC) 20 mg capsule Take 40 mg by mouth daily. Active traMADoL (ULTRAM) 50 mg tablet Take by mouth 4 times daily as needed.Active Active Problems No known active problems Family History Medical HistoryRelationNameCommentsColon cancerBrotherBrain TumorFatherCancer FatherColon cancerFatherMultiple sclerosisMotherRelationNameStatusComments BrotherAliveDaughterAliveFatherDeceasedMotherDeceasedSisterAliveSonAlive Social History Tobacco UseTypesPacks/DayYears UsedDateSmoking Tobacco: Every UxeMnwmzhbkfz131 Smokeless Tobacco: Never Tobacco Cessation:Ready to Q uit: No Alcohol UseStandard Drinks/WeekCommentsYes0 (1 standard drink = 0.6 oz pure alcohol)SOCIALLYPHQ-2AnswerDate RecordedTotal Eclxk12807/05/2019ChildcareAnswer Date XijnlhthMjmzsdejeUtdfzat67/22/2020EmploymentAnswerDate RecordedEmployment Macjxfb5803/17/2020Purpose - LifeAnswerDate RecordedPurpose and direction in life Hakdnky85/14/2021CommentsNoSex and Gender InformationValueDate Recorded Sex Assigned at BirthNot on fileLegal WwrCrxanm44/ 1:35 PM ESTGender IdentityNot on fileSexual OrientationNot on file Last Filed Vital Signs Vital SignReadingTime TakenCommentsBlood Wmgzbeyo94/68006/24/2020 10:12 AM EST Mjoqn369705/10/2020 11:18 AM YOLMyayluxawkj02.3 ??C (97.3 ??F)06/24/2020 10:12 AM ESTRespiratory Rlde715507/11/2019 11:18 AM ESTOxygen Valxpfdaqn53%05/10/2020 11:18 AM ESTInhaled Oxygen Concentration--Odfavp30.9 kg (110 lb)06/24/2020 10:12 AM NZZTktufl695.6 cm (5' 4 )06/24/2020 10:12 AM ESTBody Mass Index18.8806/24/2020 10:12 AM EST Plan of Treatment Health MaintenanceDue DateLast DoneCommentsDepression Zjgfnnhpg65/11/1981Tobacco Eqolwgcnz06/11/1981Adult BMI Nzxrvcenm18/11/1987DTaP,Tdap and Td Vaccines (1 - Tdap)09/05/1987Pap Smear1989Zoster (Shingles) Vaccine (1 of 2)2018 Influenza Tmtjsvi6201/25/2025 Medical Devices ImplantedTypeAreaManufacturerDevice IdentifierShelf Expiration DateModel / Serial / LotMesh Hrn Plg 2cm Med Pp Srgpro - Ssmpm02 - [id number] Implanted:Qty: 1 on 05/10/2020 [facility] AbdomenMEDTRONIC [facility]11/23/2024[facility]-02 / [id number] / [id number] Insurance * Guarantor: Sylvia Stoddard TypeRelation to PatientDate of PhoneBilling AddressPersonal/XdlpwqXhdk54/11/[address] [address] Care Teams Team MemberRelationshipSpecialtyStart DateEnd Date Shaikh Chiang MD PCP - GeneralInternal Lfqzkcug77/9/20
--- OUTSIDE RECORDS SUMMARY | 2025-04-16 08:32 | XMS_ITS | Clinical Summary ---
Author Organization [facility] Address [address] [place] [address] Care Team Providers Care Proof Coins Inspector Name Role Phone Caridad José MD Unavailable [phone] Source Comments The following information is NOT included in Care Everywhere downloads:Psychiatric notes, ECG results, Cardiac Rehab notes, Pulmonary Function notes, data from [employer] (includes but not limited toPregnancy data,audiograms, eye exams, pre-surgical evaluation notes, well-child exam data).[facility] Allergies No known active allergies Social History Tobacco UseTypesPacks/DayYears UsedDateSmoking Tobacco: Never Assessed CommentsUnknownSex and Gender InformationValueDate RecordedSex Assigned at Not on fileLegal OkjHaraov80/06/2025 10:09 AM ESTGender IdentityNot on file Sexual OrientationNot on file Last Filed Vital Signs Vital SignReadingTime TakenCommentsBlood Tvspqrxf322/70006/24/2024 10:16 AM EST Qmdbm287006/24/2024 10:16 AM ESTTemperature--Respiratory Onyw523906/24/2024 10:16 AM ESTOxygen Saturation--Inhaled Oxygen Concentration--Btzxlj33.3 kg (102 lb) 06/24/2024 10:16 AM PVXWxqwsh847.6 cm (5' 4 )06/24/2024 10:16 AM ESTBody Mass Index17.51006/24/2024 10:16 AM EST Plan of Treatment Health MaintenanceDue DateLast WtbtEgqzbrjwLukogpbsnye28/11/1969HIV Test 09/05/1983Hepatitis C Rbzjdwbe12/11/1987Tdap Kvxcacw1409/04/1986Hepatitis A (HAV) Vaccine (optional start 19+ years)09/05/1987Hepatitis B (HBV) Vaccine (1 of 3 - 19+ 3-dose series)09/05/1987Pap Smear09/04/19898488Imcitvkhoxh53/11/2009CRC Ikbyxgcfp14/11/8791Fzdpterhcsj60/11/2014Cologuard (Stool DNA)2013FIT 2013Pneumococcal Vaccine(s) (50+ yrs) (1 of 1 - PCV)2018Shingles (RZV) Vaccine (1 of 2)2018COVID-19 Vaccine (1 - 2024- season)2025 Influenza Vaccine (#1)2025 Insurance on file Care Teams Team MemberRelationshipSpecialtyStart DateEnd Date Caridad José MD [address] [place] [address] PhysicianGeneral Surgery06/27/24
--- OUTSIDE RECORDS SUMMARY | 2025-04-16 08:32 | XMS_ITS | Clinical Summary ---
Author Organization [facility] Address [facility] [place] [address] Care Team Providers Care Well Service Floorperson Name Role Phone LauroJuan Carlos plascenciarachel Mercado TRANSIT OPERATIONS SUPERVISOR.WELCOME CENTER AGENT Unavailable [phone] Dwain Preciado DO Primary Care Provider [phone] Cynthia Marinelli TRANSIT OPERATIONS SUPERVISOR.WELCOME CENTER AGENT Unavailable [phone] Allergies No known active allergies Medications No known medications Family History Medical HistoryRelationCommentsColon CancerBrotherColon CancerFatherRelation StatusCommentsBrotherFather Social History Tobacco UseTypesPacks/DayYears UsedDateSmoking Tobacco: Every DayCigarettes Smokeless Tobacco: Never Tobacco Cessation:Ready to Q uit: Not Asked; Counseling Given: Not Answered Alcohol UseStandard Drinks/WeekCommentsYes0 (1 standard drink = 0.6 oz pure alcohol)PHQ-2AnswerDate RecordedPHQ-2 [id number] Deprivation Index AnswerDate RecordedNational Score (1-100), lower number is lower risk78 01/20/2024State Score (1-10), lower number is lower dluf7164Data from: https://www.neighborhoodatlas.medicine.[facility].edu/. Last address used for [address] [facility] [place] [address]regnantCommentsUnknownSex and Gender InformationValueDate RecordedSex Assigned at BirthNot on fileLegal SexFemale 11/27/2023 9:04 AM EDTGender IdentityNot on fileSexual OrientationNot on file Last Filed Vital Signs Vital SignReadingTime TakenCommentsBlood Mequydku234/6710 2:43 PM EDT Hpwzr3216/ 2:43 PM XGECvzpyeaemaf12.1 ??C (98.7 ??F)03/09/2024 2:43 PM EDTRespiratory Rate--Oxygen Inkovqkmjv70%01/24/2024 11:42 AM EDTInhaled Oxygen Concentration--Fdsfdc31.1 kg (101 lb 11.2 oz)03/09/2024 2:43 PM UJQZrqzzq429.6 cm (5' 4 )03/09/2024 2:43 PM EDTBody Mass Index17.4603/09/2024 2:43 PM EDT Plan of Treatment Health MaintenanceDue DateLast DoneCommentsHIV Egiroejgz97/11/1987Hepatitis C Kufqtxhso66/11/1987DTaP,Tdap,Td Vaccine (1 - Tdap)09/05/1987Pneumococcal Vaccine: 50+ (1 of 2 - PCV)09/05/1987Cervical Cancer Zzadpqhex22/11/1990 Mammogram Etqjoaflt76/11/2009CT Svbhuswnczij25/11/2014Cologuard (FIT-DNA) 09/04/20139934Xaqfsmnzkkh82/11/2014Colorectal Cancer Nkobmgbhi87/11/2014Fecal Occult Blood09/04/20137304Ajdmqyasmrbls21/11/2014nxiety Whzrwvnet97/26/400204/ Depression Tafcznxap21/26//Influenza Vaccine (#1)2025Diabetes Prfhplkss33/23/147819/Lipid Kgbkbdbpr27/23/031309/ovid-19 Vaccine DiscontinuedHepatitis B VaccineDiscontinuedShingrix VaccineDiscontinued Insurance Care Teams Team MemberRelationshipSpecialtyStart [place] [address] [place] [address] PCP - GeneralInternal Medicine01/20/24 Cristiane Jerez, TRANSIT OPERATIONS SUPERVISOR.WELCOME CENTER AGENT [address] [place] [address] Internal Medicine11/27/23 Cynthia Marinelli APRN.WELCOME CENTER AGENT [address] [place] [address] Care PartnerInternal Gvplzwxb57/9/24
--- OUTSIDE RECORDS SUMMARY | 2025-04-16 08:32 | XMS_ITS | Clinical Summary ---
Author Organization [facility] Address [address] [place] [address] Care Team Providers Care Parts Delivery Driver Name Role Phone Unavailable Primary Care Provider Unavailabl e Social History Tobacco UseTypesPacks/DayYears UsedDateSmoking Tobacco: Never Assessed CommentsUnknownSex and Gender InformationValueDate RecordedSex Assigned at Not on fileLegal FiqNirvez72/15/2023 11:47 PM EDTGender IdentityNot on file Sexual OrientationNot on file Last Filed Vital Signs Vital SignReadingTime TakenCommentsBlood Kmjwcckb408/7403 12:00 PM EST Pulse--Temperature--Respiratory Rate--Oxygen Saturation--Inhaled Oxygen Concentration--Slmtth74.2 kg (124 lb)07/25/2022 12:00 PM IGNLslbvi606.6 cm (5' 4 )07/25/2022 12:00 PM ESTBody Mass Index21.28007/25/2022 12:00 PM EST Plan of Treatment Not on file
--- OUTSIDE RECORDS SUMMARY | 2025-04-16 08:35 | XMS_ITS | CCD ---
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 Name Role Phone PAVLOCK, MAX ELENO Unavailable Unavailable PARISH, KAM P Unavailable Unavailable PAVLOCK, MAX ELENO Unavailable Unavailable PARISH, KAM P Unavailable Unavailable PARISH, KAM P Unavailable Unavailable PARISH, KAM P Unavailable Unavailable PARISH, KAM P Unavailable Unavailable Unavailable Primary Care Provider UnavailBALTA Almonte V Admitting Unavailable MARKER, JESSIE Referring Unavailable RHEA GILL Attending Unavailable ZULMA DYER Consulting Unavailable NEAL RUANO Attending Unavailable SHAIK ZAMORADuke [facility] Primary Care Unavailable KARASIK ., DR ARDON Admitting Unavailabl e KARASIK ., DR ARDON Consulting Unavailabl e KARASIK ., DR ARDON Attending Unavailbrandon COLE, DR SHEILA Conroy Consulting Unavailable SHAIK ZAMORAH [facility] Primary Care Unavailable KARASIK ., DR ARDON Admitting Unavailabl e KARASIK ., DR ARDON Consulting Unavailabl e KARASIK ., DR ARDON Attending UnavailCRISTIANE Marcus Attending Unavailable CRISTIANE JEREZ Admitting Unavailable CRISTIANE JEREZ Primary Care Physician Cristiane Jerez CNP Unavailable Solitario LEAD NEURODIAGNOSTIC TECHNOLOGIST.Cristiane NIEVES Unavailable Dwain Preciado DO Primary Care Provider [phone] Unavailable Primary Care Provider Unavailabl paulina SELF, SELF Referring Unavailable SHEILA BERNABE Attending Unavailable PROVIDER, UNKNOWN Attending Unavailable PROVIDER, UNKNOWN Admitting Unavailable Giuseppe LEAD NEURODIAGNOSTIC TECHNOLOGIST - Elise NIEVES Primary Care Provider SYED POWER Admitting Unavailable SYED POWER Attending Unavailable SCHNEIDER, ELISE M Primary Care Unavailable AMRISSA WILSON Referring Unavailable ELISE SCHNEIDER M Primary Care Unavailable MARISSA WILSON Referring Unavailable SYEDA SCHNEIDERNTON M Primary Care Unavailable SYED POWER Attending Unavailable SYED POWER Referring Unavailable CIPRIANO SCHNEIDERON M Primary Care Unavailable ELISE SCHNEIDER M Referring Unavailable ELISE SCHNEIDER M Primary Care Unavailable Joe Pollack Attending Unavailable Unavailable Primary Care Provider UnavailDwain Malloy DO Primary Care Provider Yves LEAD NEURODIAGNOSTIC TECHNOLOGIST.Cynthia NIEVES Unavailable ILANA DWAIN Primary Care Unavailable DAVE SENA Attending Unavailable LEORA MEI Referring Unavailable ILANA DWAIN Primary Care Unavailable EFE IIIKINGS A Referring Unavailable EFE III, RICHARD Referring Unavailable [facility] Unavailable Allergies Allergy ClassificationReported Allergen(s)Allergy TypeDate of OnsetReaction(s) Facility (4 sources)Seasonal allergyPropensity to adverse reactions to substance 74-69-0820[facility] (1 source)Environmental/SeasonalPropensity to adverse reactions to substance 24-32-8797[facility] (1 source)No Known Medication Allergies; Translations: [No Known Medication Allergies]Propensity to adverse reactions (disorder)[facility] Medications Current Medications MedicationDrug Class(es)DatesSig (Normalized)Sig (Original)acetaminophen 325 mg oral tablet (6 sources)take 2 tablets by mouth every four hoursacetaminophen (TYLENOL) 325 MG tablet Take 2 tablets by mouth every 4 hours Activeamoxicillin 875 mg / clavulanate 125 mg oral tablet (1 source)Penicillin-class AntibacterialStart: 09-28-2024 End: 51-56-4827kmsz 1 tablet by mouth twice dailyamoxicillin-clavulanate (AUGMENTIN) 875-125 MG per tablet Indications: Acute non-recurrent pansinusitis Take 1 tablet by mouth 2 times daily for 10 days 20 tablet 09/28/2024 10/08/2024 Activeazithromycin 250 mg oral tablet (3 sources)Macrolide AntimicrobialStart: 08-03-2024 End: 95-59-6673axdebrynnhnf (ZITHROMAX) 250 MG tablet Indications: Upper respiratory tract infection, unspecified type 500mg on day 1 followed by 250mg on days 2 - 5 6 tablet 08/03/2024 08/13/2024 ActiveStart: 11-14-2019 End: 96-79-4362oxug 1 tablet by mouth once dailyazithromycin (ZITHROMAX) 250 MG tablet Indications: Bipolar 1 disorder with moderate saeid (HCC) Take 1 tablet by mouth daily for 1 day 1 tablet 0 11/14/2019 11/15/2019 Activecalcium chloride 0.0014 meq/ml / potassium chloride 0.004 meq/ml / sodium chloride 0.103 meq/ml / sodium lactate 0.028 meq/ml injectable solution (1 source)Start: 90-80-1135MdkcnDSYgvx, at 100 mL/hr, CONTINUOUS, Starting on [facility] 09/03/24 at 0915, Pre-op (day of surgery)gabapentin 300 mg oral capsule (2 sources)Anti-epileptic AgentStart: 22-15-1544xwvq 1 capsule by mouth twice dailygabapentin (NEURONTIN) 300 MG capsule Take 1 capsule by mouth 2 times daily. 08/25/2024 ActiveMultiple Vitamins-Minerals (THERAPEUTIC MULTIVITAMIN- MINERALS) tablet (5 sources)take 1 tablet by mouth once dailyMultiple Vitamins-Minerals (THERAPEUTIC MULTIVITAMIN-MINERALS) tablet Take 1 tablet by mouth daily Active OLANZapine 5 mg oral tablet (1 source)Atypical AntipsychoticStart: 65-93-3721oiae 1 tablet by mouth once dailyOLANZapine (ZYPREXA) 5 MG tablet Take 1 tablet by mouth nightly 30 tablet 3 11/13/2019 Activeomeprazole 20 mg delayed release oral capsule (1 source)Proton Pump Inhibitortake 2 capsules by mouth once dailyomeprazole (PRILOSEC) 20 MG delayed release capsule Take 40 mg by mouth daily 0 Active QUEtiapine 50 mg oral tablet (4 sources)Atypical AntipsychoticStart: 60-80-4444kqts 1 tablet by mouth once dailyQUEtiapine (SEROQUEL) 50 MG tablet Indications: TYREL (generalized anxiety disorder) , Moderate episode of recurrent major depressive disorder (HCC) , Bipolar 1 disorder with moderate saeid (HCC) Take 1 tablet by mouth nightly 30 tablet 1 07/14/2024 Active Completed/Discontinued Medications MedicationDrug Class(es)DatesSig (Normalized)Sig (Original)enteric contrast (will be provided with radiology test) (5 sources)Start: 01-24-2024 End: 94-21-5157nnbklir contrast (will be provided with radiology test) For CT ABD/PEL W IVCON Routine order Administer, As Directed One Time Only, via Oral, Rectal, both Oral and Rectal, Enteric Tube, Stoma or Indwelling Catheter, Enteric Contrast as designated per enteric contrast guidelines 1 Each 01/24/2024 03/09/2024 Discontinued (Course of therapy completed)Start: 29-75-2694evqsewv contrast (will be provided with radiology test) For CT ABD/PEL W IVCON Routine order Administer, As Directed One Time Only, via Oral, Rectal, both Oral and Rectal, Enteric Tube, Stoma or Indwelling Catheter, Enteric Contrast as designated per enteric contrast guidelines 1 Each 01/24/2024 ActivehydrOXYzine pamoate 25 mg oral capsule (1 source)Antihistamine End: 18-40-2175pxff 1 capsule by mouth four times daily as needed for anxiety hydrOXYzine (VISTARIL) 25 MG capsule Take 25 mg by mouth 4 times daily as needed for Anxiety 0 11/13/2019 Discontinued (Stop Taking at Discharge)iv contrast (will be provided with radiology test) (5 sources)Start: 01-24-2024 End: 13-93-7655ry contrast (will be provided with radiology test) CT ABD/PEL - Inject, intravenously, once for 1 dose.No IV access, insert saline lock prior to the beginning of sedation, infusion, injection of imaging exam. Discontinue saline lock post exam. If Pt. has a central line or IVAD, may access for adminis tration according to line specific nursing protocol. Once exam is complete flush line and de-accessaccording to line specific nursing protocol in the CT contrast administration guidelines link. 1 Each 01/24/2024 03/09/2024 Discontinued (Course of therapy completed)Start: 43-03-7028ac contrast (will be provided with radiology test) CT ABD/PEL -Inject, intravenously, once for 1 dose.No IV access, insert saline lock prior to the beginning of sedation, infusion, injection of imaging exam. Discontinue saline lock post exam. If Pt. has a central line or IVAD, may access for administration according to line specific nursing protocol. Once exam is complete flush line and de-accessaccording to line specific nursing protocol in the CT contrast administration guidelines link. 1 Each 01/24/2024 Zdrmyi84 hr venlafaxine 37.5 mg extended release oral capsule (1 source)Serotonin and Norepinephrine Reuptake Inhibitor End: 10-74-4418ldms 1 capsule by mouth once dailyvenlafaxine (EFFEXOR XR) 37.5 MG extended release capsule Take 37.5 mg by mouth daily 0 11/13/2019 D iscontinued (Stop Taking at Discharge) Problems Active Problems Problem ClassificationProblemDateDocumented DateEpisodic/ChronicAnxiety disorders (9 sources)Generalized anxiety disorder; Translations: [Generalized anxiety disorder]Onset: 298914-63-0624QrhbxeiWkhdikgcv congenital anomalies (2 sources)Congenital malrotation of intestine; 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]Onset: 370669-97-4530KnjpdxxQvpzetzz of white blood cells (1 source)Band neutrophil count above reference range; Translations: [Bandemia] Onset: 601833-88-0664BagfzpaaNnyzknyvcilek and screening for infectious disease (1 source)Encounter for screening for human papillomavirus (HPV); Translations: [ENC SCREENING HUMAN PAPILLOMAVIRUS]Onset: 57-04-6495RalgxdgpAoiv disorders (19 sources)Moderate manic bipolar I disorder; Translations: [Moderate recurrent major depression]Onset: 161197-40-3000MvmtgitTfnps female genital disorders (4 sources)Hypertrophy of ovary; Translations: [Other noninflammatory disorders of ovary, fallopian tube and broad ligament]27-97-6600XnzkcecaVrnnl female genital disorders (2 sources)Other noninflammatory disorders of ovary, fallopian tube and broad ligament; Translations: [Other noninflammatory disorders of ovary, fallopian tube and broad ligament]Onset: 86-20-5901ZiwgahhfRqovy gastrointestinal disorders (2 sources)Groin mass; Translations: [Other intra-abdominal and pelvic swelling, mass and lump]29-96-3204XokpuowgHnscl lower respiratory disease (1 source)Respiratory symptom; Translations: [Respiratory symptoms]Onset: 438904-82-8333RzgbwqwzOkxxb nutritional; endocrine; and metabolic disorders (1 source)Unintentional weight loss; Translations: [Abnormal weight loss] 23-84-2388FuoiqmlsRbhmp nutritional; endocrine; and metabolic disorders (1 source)Abnormal weight loss; Translations: [Abnormal weight loss]Onset: 16-43-9588GochtiwsNppfb nutritional; endocrine; and metabolic disorders (1 source)Decreased body mass index; Translations: [Body mass index (BMI) 19.9 or less, adult]61-56-1456GqvgriphYbwqz screening for suspected conditions (not mental disorders or infectious disease) (15 sources)Encounter for screening for malignant neoplasm of cervix; Translations: [Procedure carried out on subject]Onset: 07-25-2022 Resolved: 24-77-8717DymvchkqMitczovy codes; unclassified (1 source)Family history of malignant neoplasm of digestive organs; Translations: [Family history of malignant neoplasm of digestive organs]Onset: 31-67-7880IjafhjkmPicucgdht and history of mental health and substance abuse codes (2 sources)Patient encounter status; Translations: [Encounter for screening examination for other mental health and behavioral disorders]42-14-4343Javleumo Substance-related disorders (9 sources)Smoker; Translations: [Tobacco user]Onset: ChronicComment on above:Added secondary to documentation in Social History. Past or Other Problems Problem ClassificationProblemDateDocumented DateEpisodic/ChronicAbdominal hernia (5 sources)Left inguinal hernia ; Translations: [Unilateral inguinal hernia, without obstruction or gangrene, not specified as recurrent]Onset: 02-07-2024 54-22-2791UqpundmvWerawtijp pain (14 sources)Unspecified abdominal pain; Translations: [Left lower quadrant pain] Onset: 08-72-0425WohtvhbmMqwnjqcz of white blood cells (6 sources)Elevated white blood cell count, unspecified; Translations: [Band neutrophil count above reference range]Onset: 12-03-2017 Resolved: 308719-96-8954GvavhbzZfbyb circulatory disease (5 sources)Respiratory finding; Translations: [Other specified symptoms and signs involving the circulatory and respiratory systems]Onset: 11-08-2019 Resolved: 617562-13-8275SkbpjoorSejaeerja (except that caused by tuberculosis or sexually transmitted disease) (6 sources)Infective pneumonia; Translations: [Pneumonia]Onset: 11-09-2019 Resolved: 666657-21-8946XiuhdbcuYudidzog codes; unclassified (7 sources)Family history of cancer of colon; Translations: [Family history of malignant neoplasm of digestiveorgans]Onset: 965108-68-1405Dhceofka Unclassified (2 sources)Patient encounter pguhei75-56-7008 Results Test NameValueInterpretationReference RangeFacilityUS PELVIS COMPLETEon 69-79-9905TG PELVIS COMPLETEEXAMINATION: PELVIC ULTRASOUND 10/05/2024 TECHNIQUE: Transabdominal pelvic ultrasound was performed. COMPARISON: None HISTORY: ORDERING SYSTEM PROVIDED HISTORY: Left ovarian enlargement TECHNOLOGIST PROVIDED HISTORY: Enlarged left ovary on rectal exam. 54-year-old female with left ovarian enlargement FINDINGS: Measurements: Uterus: 7.5 x 3.1 x 4.9 cm. Endometrial stripe: 4 mm. Right Ovary:3.6 x 1.8 x 1.9 cm. Left Ovary: 2.7 x 1.8 x 2.1 cm. Ultrasound Findings: Uterus: Uterus demonstrates normal myometrial echotexture. Endometrial stripe: Endometrial stripe is within normal limits for a asymptomatic postmenopausal female. Right Ovary: Right ovary is within normal limits. Left Ovary: Left ovary is within normal limits. Color flow projects over the bilateral ovarian parenchyma. Free Fluid: No evidence of free fluid. IMPRESSION: Unremarkable transabdominal pelvic ultrasound. Interpreted by: Fidel Lloyd MD Signed by: Fidel Lloyd MD 10/05/24 Final resultNormalMercy Veterans Administration Medical CenterUS Pelvison 57-34-3549Galphuzshbhe transabdominal pelvic ultrasound. [facility] RIS CONSOLIDATEDEXAMINATION: PELVIC ULTRASOUND 10/05/2024 TECHNIQUE: Transabdominal pelvic ultrasound was performed. COMPARISON: None HISTORY: ORDERING SYSTEM PROVIDED HISTORY: Left ovarian enlargement TECHNOLOGIST PROVIDED HISTORY: Enlarged left ovary on rectal exam. 54-year-old female with left ovarian enlargement FINDINGS: Measurements: Uterus: 7.5 x 3.1 x 4.9 cm. Endometrial stripe: 4 mm. Right Ovary:3.6 x 1.8 x 1.9 cm. Left Ovary: 2.7 x 1.8 x 2.1 cm. Ultrasound Findings: Uterus: Uterus demonstrates normal myometrial echotexture. Endometrial stripe: Endometrial stripe is within normal limits for a asymptomatic postmenopausal female. Right Ovary: Right ovary is within normal limits. Left Ovary: Left ovary is within normal limits. Color flow projects over the bilateral ovarian parenchyma. Free Fluid: No evidence of free fluid. Fidel Watson MD - 10/05/2024 EXAMINATION: PELVIC ULTRASOUND 10/05/2024 TECHNIQUE: Transabdominal pelvic ultrasound was performed. COMPARISON: None HISTORY: ORDERING SYSTEM PROVIDED HISTORY: Left ovarian enlargement TECHNOLOGIST PROVIDED HISTORY: Enlarged left ovary on rectal exam. 54-year-old female with left ovarian enlargement FINDINGS: Measurements: Uterus: 7.5 x 3.1 x 4.9 cm. Endometrial stripe: 4 mm. Right Ovary:3.6 x 1.8 x 1.9 cm. Left Ovary: 2.7 x 1.8 x 2.1 cm. Ultrasound Findings: Uterus: Uterus demonstrates normal myometrial echotexture. Endometrial stripe: Endometrial stripe is within normal limits for a asymptomatic postmenopausal female. Right Ovary: Right ovary is within normal limits. Left Ovary: Left ovary is within normal limits. Color flow projects over the bilateral ovarian parenchyma. Free Fluid: No evidence of free fluid. IMPRESSION: Unremarkable transabdominal pelvic ultrasound. [facility] CampusGenZum Life Sciences [facility] Community HospitalCoupFlip [facility] GeneralRadiology Study observation (narrative)[facility] CampusDesign Clinicals PelvisOrdered By: Fidel Lloyd on 89-78-9674[facility] [employer] Work Phone: Surgical Pathology Reporton [id number] Pathology Report(NOTE) Path Number: [id number] -- Diagnosis -- A. RECTOSIGMOID POLYP, BIOPSY: Hyperplastic polyp. B. PROXIMAL RECTAL POLYP, BIOPSY: Tubular adenoma. Daisy Hurtado M.D. Electronically Signed Out kmg209/04/2024 Clinical Information Pre-Op Diagnosis: ENCOUNTER FOR SCREENING COLONOSCOPY Operative Findings: RECTOSIGMOID POLYP; PROXIMAL RECTUM POLYP Operation Performed: COLONOSCOPY BIOPSY se Source of Specimen A: RECTO SIGMOID POLYP B: PROXIMAL RECTAL POLYP Gross Description Molly. SYLVIA BARKSDALE, RECTOSIGMOID POLYP Received in formalin is one garza-white tissue fragment, 0.7 x 0.3 x 0.3 cm. Entirely 1cs. B. SYLVIA BARKSDALE, PROXIMAL RECTUM POLYP Received in formalin are two garza-white tissue fragments from 0.4 to 0.5 cm and are 0.9 x 0.3 x 0.2 cm in aggregate. Entirely 1cs. jj tm Kaylin Cat/se:09/03/2024 Microscopic Description A, B. Microscopic examination performed. Processing Lab: [address] [id number] Interpretation Performed at [address] [id number] SURGICAL PATHOLOGY CONSULTATION Patient Name: SYLVIA BARKSDALE [facility] Rec: [id number] [facility] [employer] [facility] ANATOMIC PATHOLOGY [address] [place] [address]. [place], [place] [address] [facility] Metabolic Panelon 32-16-1555Mavxi gap [Moles/Vol]11 mmol/L9 - 16 mmol/LBon [employer] Calcium [Mass/Vol]9.9 mg/dL8.6 - 10.4 mg/dLBon SecHelpa HealthChloride [Moles/Vol]104 mmol/L98 - 107 mmol/LBon SecHelpa HealthCO2 [Moles/Vol]24 mmol/L20 - 31 mmol/LBon SecDesign ClinicalsCreatinine [Mass/Vol]0.7 mg/dL0.50 - 0.90 mg/dLBon SecDesign ClinicalsEst, Glom Filt Rate- PINFBon SecHelpa [facility] GeneralComment on above: These results are not intended [...] therapy that affects renal tubular secretion. Glucose [Mass/Vol]91 mg/dL74 - 99 mg/dLBon [employer] HealthPotassium [Moles/Vol]4.4 mmol/L3.7 - 5.3 mmol/LBon [facility] HospitalSodium [Moles/Vol] 139 mmol/L136 - 145 mmol/LBon [facility] HospitalUrea nitrogen [Mass/Vol]11 mg/dL6 - 20 mg/dLBon [facility] HospitalUrea nitrogen/Creatinine [Mass ratio]16 mg/mg9 - 20Bon [facility] HospitalBon [facility] HospitalBasic Metabolic Prof on 82-55-1786Jsnxj gap [Moles/Vol]11 mmol/LNormal9-16[facility] Comment on above:Performed By: #### BMP, CDP #### [facility] [address] [place] [address] Dr. [place], [place] [id number] Body Maker: Sheila Singleton MDBUN/CRE Rfssh66Gjpfvy1-14Wgwbj [facility] Comment on above:Performed By: #### BMP, CDP #### [address] [place], [place] [id number] Body Maker: DAVE Guerreroalcium [Mass/Vol]9.9 mg/dLNormal8.6-10.4[facility] Health SystemComment on above:Performed By: #### BMP, CDP #### [address] [place], [place] [id number] Body Maker: DAVE Guerrerohloride [Moles/Vol]104 mmol/TVvyeah12-279HgchpTrinity Health SystemComment on above:Performed By: #### BMP, CDP #### [facility] [address] [place] [address] Dr. [place], [place] [id number] Body Maker: Sheila Singleton MDCO2 [Moles/Vol]24 mmol/MQjftwc67-54WirdhTrinity Health SystemComment on above:Performed By: #### BMP, CDP #### [address] [place] [address] Body Maker: DAVE Guerreroreatinine [Mass/Vol]0.7 mg/dLNormal0.50-0.90Tr[facility] Health SystemComment on above:Performed By: #### GAYATHRI, CDP #### [address] [place] [address] Body Maker: Sheila Singleton MDGFR/1.73 sq M.predicted among non-blacks MDRD (S/P/Bld) [Vol rate/Area]mL/min/{1.73_m2}Normal>60[facility] Health SystemComment on above:Result Comment: These results are not intended for [...] or following therapy that affects renal tubular secretion.Performed By: #### GAYATHRI, CDP #### [address] [place] [address] Body Maker: Sheila Singleton MDGlucose [Mass/Vol]91 mg/nZSdopag33-94RsposMemorial HospitalComment on above:Performed By: #### GAYATHRI, CDP #### [address] [place] [address] Body Maker: Sheila Singleton MDPotassium [Moles/Vol]4.4 mmol/LNormal3.7-5.3MOhioHealth Riverside Methodist Hospital HospitalComment on above:Performed By: #### BMP, CDP #### [address] [place] [address] Body Maker: Sheila Singleton MDSodium [Moles/Vol]139 mmol/ANlmesi691-381MvbkgTrinity Health SystemComment on above:Performed By: #### BMP, CDP #### [address] [place] [address] Body Maker: Sheila Singleton MDUrea nitrogen [Mass/Vol]11 mg/dLNormal6-20[facility] HospitalComment on above:Performed By: #### BMP, CDP #### [facility] [address] [place] [address] Body Maker: Sheila Singleton [facility] with Auto Differentialon 73-04-2115Dxgahrtoq (Bld) [#/Vol]0.05 10*3/uLBon Secours [facility] HealthBasophils/100 WBC (Bld)0 %0 - 2 %[facility] JacksonEosinophils (Bld) [#/Vol]0.56 10*3/uLHighBon Secours [facility] HealthEosinophils/100 WBC (Bld)3 %1 - 4 %[facility] Health Erythrocyte distribution width (RBC) [Ratio]13.5 %11.8 - 14.4 %[facility] – JacksonHematocrit (Bld) [Volume fraction]44 %36.3 - 47.1 %[facility] – JacksonHemoglobin (Bld) [Mass/Vol]14.4 g/dL11.9 - 15.1 g/dLBon Secours Holzer Medical Center – JacksonImmature granulocytes (Bld) [#/Vol]0.05 10*3/uLBon Secours [facility] Immature granulocytes/100 WBC (Bld)0 %0[facility] HealthInterpretation and review of laboratory resultsAbnormalBon Secours [facility] GeneralLymphocytes/100 WBC (Bld)27 %24 - 43 %[facility] – JacksonLymphocytes/100 WBC (Bld)4.51 % HighBon Secours [facility] HospitalH (RBC) [Entitic mass]31 pg25.2 - 33.5 pgBon Secours [facility] Valley HospitalHC (RBC) [Mass/Vol]32.7 g/dL28.4 - 34.8 g/dLBon Secours [facility] Bl[facility]ard Valley HospitalV (RBC) [Entitic vol]94.6 fL82.6 - 102.9 fLBon Secours Mercy HealthMonocytes/100 WBC (Bld)7 %3 - 12 %[facility] Hospitaly HealthMonocytes/100 WBC (Bld)1.21 %HighBon Secours Holzer Medical Center – JacksonNeutrophils/100 WBC (Bld)63 %36 - 65 %[facility] HealthNucleated RBC/100 WBC (Bld) [Ratio]0 %0.0 per 100 WBC [facility] HospitalsPlatelet mean volume (Bld) [Entitic vol]9.7 fL8.1 - 13.5 fLLifepoint HospitalsPlatelets (Bld) [#/Vol]354 10*3/uLBon Adams County HospitalRBC (Bld) [#/Vol]4.65 10*6/uL3.95 - 5.11 m/[facility] Segmented neutrophils/100 WBC (Bld)10.62 %HighLifepoint HospitalsWBC other (Bld) [#/Vol]17HighCentra Virginia Baptist HospitalCBC with Diff on 08-74-0117Byk. Basophil0.05 k/uLNormal0.00-0.20[facility] HospitalComment on above:Performed By: #### GAYATHRI, CDP #### [address] [place] [address] Body Maker: Mona Guerrero.Imm.Granulocyte0.05 k/uLNormal0.00-0.30[facility] HospitalComment on above:Performed By: #### GAYATHRI, CDP #### [address] [place] [id number] Body Maker: Mona Guerrero.Neutrophil (Seg)10.62 k/uLHigh1.50-8.10[facility] HospitalComment on above:Performed By: #### BMP, CDP #### [address] [place], [facility]83 Body Maker: Sheila Singleton MDBasophils/100 WBC (Bld)0 %Normal0-2MercMercy Health Willard Hospital HospitalComment on above:Performed By: #### BMP, CDP #### [address] [place] [id number] Body Maker: Sheila Singleton MDEosinophils (Bld) [#/Vol]0.56 10*3/uLHigh0.00-0.44 [facility] SystemComment on above:Performed By: #### BMP, CDP #### [address] [place], [place] [address] Body Maker: Sheila Singleton MDEosinophils/100 WBC (Bld)3 %Normal1-4[facility] HospitalComment on above:Performed By: #### BMP, CDP #### [address] [place], [place] [address] Body Maker: Sheila Singleton MDErythrocyte distribution width (RBC) [Ratio]13.5 % Spaofp63.8-14.4[facility] HospitalComment on above:Performed By: #### BMP, CDP #### [address] [place], [place] [address] Body Maker: Sheila Singleton MDHematocrit (Bld) [Volume fraction]44.0 %Normal 36.3-47.1MOhioHealth Riverside Methodist Hospital HospitalComment on above:Performed By: #### GAYATHRI, CDP #### [address] Guerra, [place] [address] Body Maker: Sheila Singleton MDHemoglobin (Bld) [Mass/Vol]14.4 g/dLNormal 11.9-15.1MOhioHealth Riverside Methodist Hospital HospitalComment on above:Performed By: #### BMP, CDP #### [address] Guerra, [place] [address] Body Maker: Sheila Singleton MDImmature granulocytes/100 WBC (Bld)0 %Sauhuj8Oqayx Tiffin HospitalComment on above:Performed By: #### BMP, CDP #### [address] Guerra, [facility]83 Body Maker: Sheila Singleton MDLymphocytes (Bld) [#/Vol]4.51 10*3/uLHigh1.10-3.70 [facility] HospitalComment on above:Performed By: #### BMP, CDP #### [address] Guerra, [place] [address]83 Body Maker: Sheila Singleton MDLymphocytes/100 WBC (Bld)27 %Amtbio31-32IxwhvTrinity Health SystemComment on above:Performed By: #### BMP, CDP #### [address] Guerra, [place] 433[address]83 Body Maker: BECCA GuerreroCH (RBC) [Entitic mass]31.0 siLaexvk92.2-33.5 [facility] Health SystemComment on above:Performed By: #### BMP, CDP #### [address] Guerra, [place] 408[address]83 Body Maker: GLENROY GuerreroC (RBC) [Mass/Vol]32.7 g/sCCkchuj49.4-34.8Trinity Health SystemComment on above:Performed By: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 Ot[address] AveCLarchwood, [place] [phone] mmol/PRjboyh21-46AleiizpxfSt. [facility]'s [facility] on above:Performed By: #### SENTHILR, CMP ####[facility]CLarchwood, [place] [phone] mg/dLNormal0.58-0.96[facility] on above:Performed By: #### SHERLYN, CMP ####[place] [address] AveCLarchwood, [place] [phone] (non-black)mL/min/{1.73_m2}NormalSt. [facility] on above: Result Comment: eGFR (Estimated GFR) Units of measure: mL/min/1.73 meters squaredeGFR is derived from the reexpressed MDRD Study equation using the following parameters: serum creatinine, age, genderand race. The creatinine assay has been calibrated to be traceable to IDMS.An eGFR <60 mL/min/1.73m2 for >3 months is consistent with chronic kidney disease. Refer to KDOQI guidelines for clinical interpretation.In patients with unstable renal function, e.g. those with acute kidney injury, the eGFR may not accurately reflect actual GFR. Performed By: #### SHERLYN, CMP ####[facility] Eogpxqzovequ0[address] Otway AveCLarchwood, [place] [phone]-Deavxdu Amer.>60NormalCMary Rutan Hospital on above:Performed By: #### WSR, CMP ####[facility] AveCLarchwood, [place] [phone] mass codb887 mg/lQUejo01-73BpynrjwxeSt. [facility] on above:Result Comment: The [place] Diabetes Association (ADA) provides guidance for cutoff values for fast ing glucose and random glucose. The ADA defines fasting as no caloric intake for at least 8 hours. Fasting plasma glucose results between 100 to 125 mg/dL indicate increased risk for diabetes (prediabetes).Fasting plasma glucose results greater than or equal to 126 mg/dL meet the criteria for diagnosis of diabetes. In the absence of unequivocal hyperglycemia, results should be confirmed by repeattesting. In a patient with classic symptoms of hyperglycemia or hyperglycemic crisis, random plasmaglucose results greater than or equal to 200 mg/dL meet the criteria for diagnosis of diabetes.Reference: Standards of Medical Care in Diabetes 2016, Italian Diabetes Association. Diabetes Care. 2016.39(Suppl 1).Performed By: #### SHERLYN, CMP ####[place] [phone] molar conc 4.3 mmol/LNormal3.7-5.1CMary Rutan Hospital on above:Performed By: #### SHERLYN, CMP ####[address] [phone] g/dLLow6.3-8.0[facility] on above:Performed By: #### SHERLYN, CMP ####[address] [phone] mmol/VBvrgol604-677WiirmjipkSt. [facility]'s [facility] on above:Performed By: #### SHERLYN, CMP ####[place] [phone] nitrogen 12 mg/dLNormal7-21[facility] on above:Performed By: #### SHERLYN, CMP ####[address] [phone] CBCDIF (for [facility] use only)on 92-66-7881Gcj Baso<0.03 Normal0.00-0.10[facility] Mi[facility]burgAbs Mono1.02 k/uLHigh0.00-0.86[facility] MiamisburgAbs Neut9.59 k/uLHigh1.45-7.50[facility] Basophils/100 WBC Auto (Bld)0.1 %NormalKettering Health MiamisburgEosinophils0.65 10*3/uLHigh0.00-0.45[facility] MiamisburgEosinophils/100 leukocytes3.9 % NormalKettering Health MiamisburgErythrocyte distribution width Auto Ratio (RBC) 12.9 %Xlxota51.5-15.0[facility] MiamisburgErythrocytes (RBC)3.89 10*6/uLLow 3.90-5.20[facility] MiamisburgHematocrit (HCT)36.7 %Eexxmw34.0-46.0 [facility] Mi[facility]burgHemoglobin mass conc (Bld)12.9 g/gQMapmee63.5-15.5 [facility] MiamisburgLymphocytes5.40 10*3/uLHigh1.00-4.00[facility] MiamisburgLymphocytes/100 nywcmimzpj80.4 %NormalKettering Health MiamisburgMCH33.2 eYIxjxku95.0-34.0[facility] HospitalHC mass conc (RBC)35.1 g/dLNormal 30.5-36.0[facility] MiamisburgMCV94.3 eHDolpuw19.0-100.0[facility] MiamisburgMonocytes/100 leukocytes6.1 %NormalKettering Health Miamisburg Neutrophils/100 WBC Auto (Bld)57.5 %NormalKettering Health MiamisburgPlatelet mean volume (PMV)9.1 fLNormal9.0-12.7CParkview Health Bryan HospitalPlatelets325 10*3/kTZslyfs097-667QypqpxvtnKettering Health MiamisburgWBC (Leukocytes)16.68 10*3/uLHigh 3.70-11.00[facility] MiamisburgSed Rate Westergrenon 35-21-4656Bfe Rate Westergren2 mm/hrNormal0-20[facility] MiamisburgComment on above:Performed By: #### WSR, CMP ####[facility] Uknejxdxvubc[address] [place], [place] [phone] Vital Signs Date TimeVital SignValuePerforming IaebusfmbQiohmrlq14-18-2981 11:15-0400 Diastolic blood arflqekb07 mm[Hg]Syed Power MD Work Phone: Bwo [facility]04-10-2025 11:15-0400Heart rate57 /Maurice Power MD Work Phone: [facility]04-10-2025 11:15-0400 Respiratory rate10 /Maurice Power MD Work Phone: [facility]04-10-2025 11:15-1147UfK1% (BldA) [Mass fraction]100 %Syed Power MD Work Phone: [facility]04-10-2025 11:15-0400Systolic blood cpixkrlg726 mm[Hg]Syed Power MD Work Phone: [facility]04-10-2025 10:46-0400Body iwxxdciirvw82.9 [degF]Syed Power MD Work Phone: [facility]04-10-2025 08:45-0400Body njchit240.6 cmSyed Power MD Work Phone: Bjp [facility]04-10-2025 08:45-0400Body mass index (BMI) [Ratio]17.97 kg/q2AqjecndSyed Power MD Work Phone: Bqa [facility]04-10-2025 08:45-0400Body cbnjax93.49 kgSyed Power MD Work Phone: Brq [facility]01-29-2025 10:16-0500Body kuuafy330.6 Jerome José MD Work Phone: [phone]rNykmqk91-20-0407 10:16-0500Body mass index (BMI) [Ratio]17.51 kg/f0ZdkcoaqCaridad José MD Work Phone: [phone]) [phone]yLvbveh18-18-9860 10:16-0500Body xiwgzk36.27 kg Caridad José MD Work Phone: 1(871) [phone]yAxngde82-07-4235 10:16-0500Diastolic blood fodsljlg87 mm[Hg]Caridad José MD Work Phone: [phone]) [phone]bNvrecy56-56-9632 10:16-0500Heart rate69 /min Caridad José MD Work Phone: 1(780) [phone]oKuumbc4278 10:16-0500Respiratory rate14 /minCaridad José MD Work Phone: 1(552) [phone]sFgjydf89-59-9406 10:16-0500Systolic blood mextoyus617 mm[Hg]Caridad José MD Work Phone: 1([phone]) [phone]wCgdnoc04-97-1568 13:36-0500Body ifvwer687.6 cm Sheila Bernabe MD Work Phone: [phone]-[facility]11-06-2024 13:36-0500Body mass index (BMI) [Ratio]17.16 kg/s2HvhtrSheila Bernabe MD Work Phone: [phone]11-06-2024 13:36-0500Body jtdruu44.36 kgSheila Bernabe MD Work Phone: [phone]-[facility]11-06-2024 13:36-0500 Respiratory rate16 /minDdoreen Bernabe MD Work Phone: [facility]10-14-2024 14:43-0400Body pswuag989.6 cmDave Sena MD Work Phone: [facility]10-14-2024 14:43-0400Body mass index (BMI) [Ratio]17.46 kg/q1UmkhjiulDave Sena MD Work Phone: [facility]10-14-2024 14:43-0400Body temperature 98.71 [degF]Dave Sena MD Work Phone: [facility]10-14-2024 14:43-0400Body qwufgm08.13 kgDave Sena MD Work Phone: [facility]10-14-2024 14:43-0400Diastolic blood cxxargib24 mm[Hg]Dave Sena MD Work Phone: [facility]10-14-2024 14:43-0400Heart rate69 /min Dave Sena MD Work Phone: [facility]10-14-2024 14:43-0400Systolic blood vywqcnwp600 mm[Hg]Dave Sena MD Work Phone: [facility]08-30-2024 11:42-0400Body losmwa095.6 cmJonadine Landers III, MD Work Phone: [facility]08-30-2024 11:42-0400Body mass index (BMI) [Ratio]17.1 kg/m2Kings Landers III, MD Work Phone: [facility]08-30-2024 11:42-0400Body arhmpw37.2 kgJonadine Landers III, MD Work Phone: [facility]08-30-2024 11:42-0400Diastolic blood vaawslbv50 mm[Hg]Kings Landers III, MD Work Phone: [facility]08-30-2024 11:42-0400Heart rate76 /min Kings Landers III, MD Work Phone: [facility]08-30-2024 11:42-4209PuB4% (BldA) [Mass fraction]99 %Kings Landers III, MD Work Phone: [facility]08-30-2024 11:42-0400Systolic blood tmjwqfxy279 mm[Hg]Kings Landers III, MD Work Phone: [facility]08-26-2024 17:10-0400Diastolic blood zsmdtaeo33 mm[Hg]Dwain Preciado DO Work Phone: [facility]08-26-2024 17:10-0400Heart rate80 /min Dwain Preciaod DO Work Phone: [facility]08-26-2024 17:10-0400Systolic blood doqbeiwi741 mm[Hg]Dwain Preciado DO Work Phone: [facility]06-20-2024 15:07-0400Body temperature 98.6 [degF]Joe Pollack [facility]06-20-2024 15:07-0400 Diastolic blood icpdjpwd35 mm[Hg]Joe Pollack [facility]06-20-2024 15:07-0400Heart rate66 /minJoe Pollack [facility]06-20-2024 15:07-0400 Respiratory rate18 /minJoe Pollack [facility]06-20-2024 15:07-3761AqR0% (BldA) [Mass fraction]98 %Joe Pollack [facility]06-20-2024 15:07-0400 Systolic blood fwybilal247 mm[Hg]Joe Pollack [facility]06-19-2020 08:07-0400Body Qqsjumsyonn71.7 [degF][facility], VC61-05-1612 08:07-0400BP Daoqmyjxh39 mm[Hg][facility], KZ45-07-3778 08:07-0400BP Rfbibgwu289 mm[Hg][facility], XQ95-24-6464 08:07-0400Pulse (Heart Rate)78 /minSt. [facility], [place] 11-13-2019 08:07-0400Respiratory Rate14 /[facility], XK87-02-6039 17:12-0400BMI (Body Mass Index)20.6 kg/o3QwqvySt. [facility]'s Hospital, TB87-87-6789 17:12-0400Body rdrbof61.43 kgSt. [facility]'s Hospital, IO85-80-0830 17:120400Height 162.6 [facility] [place] Encounters Encounter DateEncounter TypeCare ProviderFacilityStart: 12-22-2024 End: 13-86-6223wjsndtlfbkKaaswv Matzke DO Work Phone: Internal MedicineStart: 12-22-2024 End: 75-88-6413Ipgggbl encounter procedureHuhang Carmelosoniamonroe DO Work Phone: Internal MedicineStart: 10-05-2024 End: 49-17-6403ewoczxmaedUZRHEAYSYED Guerra HospitalStart: 10-05-2024 End: 72-73-1252Djewcdojfu hospital visit by Claire Power MD Work Phone: [facility] [employer] [place] UltrasoundComment on above:Left ovarian enlargementStart: 09-03-2024 End: 87-47-5451fsjqcmcmfnAWECLZYSYED Mueller HospitalStart: 09-03-2024 End: 57-78-3332Ptlunylbsj hospital visit by Claire Power MD Work Phone: mWHO EndoscopyComment on above:Family history of colon cancer (Primary Dx); Encounter for screening colonoscopy; TYREL (generalized anxiety disorder); Moderate episode of recurrent major depressive disorder (HCC); Smoker; Bipolar 1 disorder with moderate saeid (HCC); Left ovarian enlargementStart: 08-11-2024 End: 02-49-2999iwnoctmfajTKRTK R [facility] HospitalStart: 08-11-2024 Encounter for other preprocedural examinationWENDY [facility] Start: 08-11-2024 End: 17-48-7513Uyfealz encounter Soco Schneider APRN - [employer] Work Phone: [facility] HospitalsStart: 08-11-2024 End: 41-14-7492Wzlevxbtvh hospital visit by Gabrielle Schneider APRN - [employer] Work Phone: [facility] [employer]Guard [place] LABComment on above:Unintentional weight loss; Pre-op testingPre-op testingStart: 07-14-2024 End: 51-30-2359jcmaypqbrtNKLSDFT M HALLMercy Mount [facility] HospitalStart: 07-14-2024 End: 66-23-8393Ktlnsarcyx hospital visit by physicianElise Bartlett CNP Work Phone: [facility] LABComment on above:TYREL (generalized anxiety disorder); Moderate episode of recurrent major depressive disorder (HCC); Bipolar 1 disorder with moderate saeid (HCC)Start: 06-24-2024 End: 69-14-0111jkpwcvwscrFQKBQVN PROVIDERFacility:METROHealthStart: 06-24-2024 End: 25-53-7354Lkabdz outpatient new 45 Oscar José MD Work Phone: MetK[facility] GeneralComment on above:Left lower quadrant abdominal pain (Primary Dx); Body mass index (BMI) 19.9 or less, adultStart: 04-01-2024 End: 99-73-7145Sfbjzu consultation new/estab patient 58 Jeremy Bernabe MD Work Phone: General and Gastrointestinal Surgery [facility] Comment on above:Left groin pain (Primary Dx)Start: 85-79-5267uuzlcdehvnWWAR SELFFacility:[facility]OSPITALStart: 03-27-2024 End: 88-65-5747Qhivvqimg encounterYoon BashiradiologyComment on above: AppointmentStart: 03-12-2024 End: 14-73-5556Oljksuxne to same day surgery Trudy Mcginnis RNGeneral SurgeryStart: 03-12-2024 End: 25-08-8849A-mail encounter from caregiverDona Mcginnis RNGeneral Surgery Start: 03-12-2024 End: 47-18-2954Daglqxqwt encounterDona Mcginnis RNGeneral SurgeryStart: 03-09-2024 End: 80-12-1257Oeyaxwq encounter procedureDave Sena MD Work Phone: General SurgeryComment on above:Malrotation of intestine (Primary Dx); Recurrent left inguinal herniaStart: 03-09-2024 End: 20-53-4646cyqbnyiknvNRWTEI MATZKEFacility:[facility] Hospitaltart: 02-11-2024 End: 87-34-0634Gkopvfrww encounterLeora Mei PA-C Work Phone: General SurgeryStart: 02-07-2024 End: 90-96-2287okwmugqbjdWTWNDI MATZKEFacility:[facility] Hospitaltart: 02-07-2024 End: 26-24-6984Pfplcnkjkj hospital [facility] Work Phone: RadiologyComment on above:Left lower quadrant abdominal pain [R10.32]Hernia [K46.9]Start: 01-24-2024 End: 61-23-2991Hcnsywa encounter procedureKings Landers MD Work Phone: General SurgeryComment on above:Reducible left inguinal hernia (Primary Dx); Left groin mass; History of left inguinal hernia repair; LLQ pain; Left lower quadrant abdominal painStart: 01-22-2024 End: 19-17-6530ttsuxkeabgBoknyj Matzke DO Work Phone: [facility]3Start: 01-22-2024 End: 40-47-5916Eneguyh encounter procedureDwain Preciado DO Work Phone: [facility]3Start: 01-21-2024 End: 82-41-1582Uucmfcmwp encounterAlie Baldwin CRITICAL ACCESS HOSPITALRadiologyComment on above:AppointmentStart: 01-20-2024 End: 52-08-0682Nlhcqou preventive medicine new patient 40-64yrsHunter Ilana DO Work Phone: [facility] MedicineComment on above:Annual physical exam (Primary Dx); Special screening for malignant neoplasms, colon; Encounter for screening examination for other mental health and behavioral disorders; Screening for depression; Left groin mass; Tobacco use disorderStart: 01-20-2024 End: 86-74-5559Uxcuqca encounter procedureDwain Preciado DO Work Phone: [facility] Work Phone: Start: 01-20-2024 End: 17-91-7065Iuqvhvxwa encounterHuntshira Preciado DO Work Phone: Internal MedicineStart: 06-01-4494adoouiilziNlp Ranjeet Facility:[facility] Hospitaltart: 30-09-0376Osfghmaqf encounterLorvijay Santana RN Work Phone: General SurgeryStart: 11-14-2023 End: 85-98-3802Jeospxolu department patient visitTim Sipsey [facility] Start: 55-17-1875gzlswewtjxNbs SipseyFacility: BellevueStart: 53-30-1187eoyznuvqicOEUZPE KLONKFacility:FTMCStart: 08-01-2022 End: 30-95-8839ygqnegoplsBILQKL H FAWWADFacility:V9Psxzl: 07-25-2022 End: 15-56-8742bnmqgzvtnuHESKGV H FAWWADFacility:J6Qwwfy: 11-14-2019 End: 47-25-0660Okrplfkfb department patient visitNEAL RUANO [facility]: 11-06-2019 End: 25-29-4818Ylkdgljups and management of inpatientSREEKANTH V INDURTIMercy Lanai City HospitalStart: 44-54-1565Xiztaek encounter procedureMHCZ Admitting Start: 12-03-2017 End: 64-02-0589Utehbbx encounterALFRED P ALICIAMercy Health St. [facility] HospitalStart: 11-28-2017 End: 26-36-8793Vofsqbf encounterMAX Peoples HospitalStart: 11-26-2017 End: 95-77-0165Qwfzkvh encounterMAX ELENO [facility] Procedures DateProcedureProcedure DetailPerforming ClinicianStart: 64-79-1179Kz pelvic nonobstetric real-time image completeSyed Power MD Work Phone: Start: 73-39-1140EhnxwinhwpqWsknljt Pruitt MD Work Phone: Start: 22-52-3760Xbcyp metabolic panel calcium total Marissa Wilson LEAD NEURODIAGNOSTIC TECHNOLOGIST - [employer] Work Phone: Start: 74-66-6925Ryg routine ecg w/least 12 lds w/i&r Marissa Wilson LEAD NEURODIAGNOSTIC TECHNOLOGIST - [employer] Work Phone: Start: 92-50-8920Jqffe of thyroid stimulating hormone tshBrerony Schneider LEAD NEURODIAGNOSTIC TECHNOLOGIST - [employer] Work Phone: Start: 28-24-1732Fzliv depression screening assessment Dwain AriellaeeGeo Work Phone: Start: 43-17-6384Fyial 1996 panel - Serum or Plasma Dwain Preciado DO Work Phone: Start: 73-39-6117GUYIQPNGQ PATIENTSREEKANTH INDURTI Start: 40-60-4872Skzstibqyz exam chest single viewSREEKANTH INDURTIStart: 08-23-8648LD CONSULT TO INTERNAL MEDICINESREEKANTH INDURTIStart: 15-52-2366CQZP GENERALSREEKANTH INDURTIStart: 98-62-3360OZ CONSULT TO HISTORY AND PHYSICAL BALTA INDURTIStart: 68-82-6240CSFA CODESREEKANTH INDURTIStart: 11-06-2019 TOBACCO CESSATION EDUCATIONSRUNC HEALTH [facility] INDURTIStart: 02-79-1433FSVGL SIGNS BALTA INDURTIStart: 26-84-2037QMWCBPA STATUS (DIRECT)BALTA INDURTI History of repair of inguinal herniaHistory of left inguinal hernia repairKings Landers MD Work Phone: Plan of Treatment DateCare ActivityDetailAuthorStart: 39-49-5305Rqvaltbcn for malignant neoplasm of colonBon [facility] HospitalStart: 11-48-0345Ljhbfwfct for malignant neoplasm of colonBon [facility] HospitalStart: 64-36-0473Dvysh panelLipid ScreeningFlower Hospitaltart: 02-52-5273Sjvbhlex ScreeningDiabetes Screening [facility] Hospitaltart: 55-26-2666Ubuhfsxwvg MonitoringDepression MonitoringBon [facility]: 40-31-8071Uclvqsvlyq MonitoringDepression Monitoring Bon [facility]: 20-99-1347Mcsrbjbnyu MonitoringDepression MonitoringBon [facility]: 28-05-7485Ozfhvslso B vaccine (1 of 3 - 19+ 3-dose series)Hepatitis B vaccine (1 of 3 - 19+ 3-dose series)[facility] HospitalsComment on above:Postponed from 09/05/1987 (Not Indicated)Start: 78-56-4398Pthuhpkdhsnv 50+ years Vaccine (1 of 2 - PCV)Pneumococcal 50+ years Vaccine (1 of 2 - PCV)[facility] HospitalsComment on above:Postponed from 09/05/1987 (Patient Refused)Start: 00-45-8258Lozisdau vaccine (1 of 2)Shingles vaccine (1 of 2)[facility] HospitalsComment on above:Postponed from 2018 (Patient Refused)Start: 12-55-3725Grufdxpnxf MonitoringDepression MonitoringVirginia Hospital Centerart: 72-70-6941GBPDB-19 Vaccine ( season)COVID-19 Vaccine ( season)[facility] HospitalsComment on above:Postponed from 01/26/2024 (Patient Refused)Start: 96-10-0350Bvxztbhvc vaccinationLifepoint HospitalsComment on above:Postponed from 12/26/2023 (Patient Refused)Postponed from 12/25/2024 (Patient Refused)Start: 01-25-2025 Influenza vaccinationInfluenza Vaccine (#1)[facility]: 01-19-2025 Anxiety ScreeningAnxiety ScreeningFlower Hospitaltart: 69-87-8032Bfvyfaoyfs ScreeningDepression ScreeningFlower Hospitaltart: 10-26-2024 End: 38-32-2828Fnowquu encounter opvjinvlv70/02/2025 10:40 AM EDT Office Visit [facility] [address] [place] [address] [address] [place] [address] Elise Schneider, LEAD NEURODIAGNOSTIC TECHNOLOGIST - [employer] [address] [facility] [address] [place] [id number] Wellness.[facility] Primary CareComment on above:Wellness.Start: 09-28-2024 End: 38-33-9879Xrpgxnf encounter cdsvjiiyl15/05/2025 10:40 AM EDT Office Visit [facility] [address] [place] [address] [address] [place], [place] [id number] Elise Schneider, LEAD NEURODIAGNOSTIC TECHNOLOGIST - [employer] [address] [facility] [address] [place] [address] Anxiety and Depression [facility] Primary CareComment on above:Anxiety and Depression Start: 09-03-2024 End: 26-63-2276RH PelvisUS PELVIS COMPLETE Imaging Routine Left ovarian enlargement Expected: 09/03/2024, Expires: 09/03/2025on [facility] Comment on above:Expected: 09/03/2024, Expires: 09/03/2025Start: 09-03-2024 End: 93-43-5235Ynzriiaul to same day surgery zxqjkn0809/03/2024 11:10 AM EDT - 09/03/2024 11:46 AM EDT Surgery [facility] [address] [place] [address] Syed Power MD [address] [place] [address] COLONOSCOPYMWHZ EndoscopyComment on above:COLONOSCOPYStart: 45-99-5085Xdepoinjah hospital visit by gqvyyssif26/10/2025 11:10 AM EDT Hospital Encounter [facility] [address] [place] [address] Syed Power MD [address] [place] [address] [facility] EndoscopyStart: 09-03-2024 End: 31-54-9380Guwfx ca scrn not hi rsk indMWHZ ENDOSCOPYStart: 08-31-2024 End: 78-17-7738Ivvbvnf encounter pyajvrexc42/07/2025 10:40 AM EDT Office Visit [address] [place], [place] [id number] Elise Schneider, LEAD NEURODIAGNOSTIC TECHNOLOGIST - [employer]HALT MIXER [address] [facility] [address] [place] [address] 4 week F/U [facility] Primary CareComment on above:4 week F/U BipolarStart: 08-11-2024 End: 60-30-5170Xpsqanw encounter tibqtulez93/18/2025 11:00 AM EDT Office Visit [facility] [address] [place] [address] Marissa Wilson, LEAD NEURODIAGNOSTIC TECHNOLOGIST - ASPHALT MIXER 27 [facility] [address] [place] [address] Family history of colon cancer and Unexplained weight lossAKRON [facility]ILDR[facility] Part [facility]Comment [facility] above:Family history of colon cancer and Unexplained weight lossStart: 07-22-2024 End: 10-28-0968Qqgdmkw encounter ihcforzmg90/26/2025 12:40 PM EST Office Visit Internal Medicine [address] [place] [address] [place] [address] [place] [address] 6 mos. f/uInternal MedicineComment on above:6 mos. f/u Start: 07-20-2024 End: 98-06-6274Pgiiytz encounter bxqvlnsay10/24/2025 10:40 AM EST Office Visit [facility] Primary Care [address] [place] [address] [address] [place] [address] Elise Schneider, LEAD NEURODIAGNOSTIC TECHNOLOGIST - [employer] M[employer]ER [address] [facility] 103 [place] [address] 1 week f/[facility] Primary CareComment on above:1 week f/uStart: 06-08-2024 End: 86-60-0785Tvpiqly encounter ryzyulfgy34/13/2025 2:00 PM EST Office Visit [facility] [address] [phone] Jabari De Jesus MD [address] [place] [address] [facility]-09-2024 End: 75-30-1605Rdakgbm encounter hwodnnwoe77/14/2024 10:30 AM EDT Appointment [facility] Endoscopy [facility] [address] [place] [address] Alia Haney MD [address] [place], [place] [id number] Special screening for malignant neoplasms, colon [Z12.11][facility]oscopy [facility] CenterComment [facility]:Special screening for malignant neoplasms, colon [Z12.11]Start: 02-07-2024 End: 72-35-8200Vklhoqe encounter procedureRadiologyComment on above:Left lower quadrant abdominal pain [R10.32]Start: 81-41-2651CWCJF-19 VACCINE ( season)COVID-19 VACCINE ( season)[facility]: 29-20-5793Zttzvfuon vaccinationInfluenza Vaccine (#1)[facility]: 01-24-2024 End: 91-94-1691Xaczskx encounter dzllezzvu71/30/2024 11:45 AM EDT Office Visit General Surgery [address] [place] [address] [place] III, MD [address] [place], [place] [id number] Left groin mass [R19.09]General SurgeryComment on above:Left groin mass [R19.09]Start: 91-41-9623Hhyvxpbsgo Health ScreeningBehavioral Health Screening [facility]: 46-98-2516Wetzh-19 Vaccine ( season)Covid-19 Vaccine ( season)[facility]: 30-14-6640Jphylfunb vaccinationFlu vaccine (Season Ended)[facility]: 2018 Pneumococcal vaccinationPneumococcal Vaccine(s) (50+ yrs) (1 of 1 - PCV) [facility]: 92-87-2364Guzirsnbe for malignant neoplasm of breastBreast cancer [facility]: 62-98-9401Nrbtgbwbi for malignant neoplasm of colonColon cancer screen colonoscopyAultman Orrville [facility]: 77-06-6155Hhyovmjri for malignant neoplasm of lungLung Cancer Screening &/or CounselingCar[facility] Clinic: 53-66-9575Ojucdkvp (RZV) Vaccine (1 of 2)Shingles (RZV) Vaccine (1 of 2)[facility]: 00-76-0312Raewzsig Vaccine (1 of 2)Shingles Vaccine (1 of 2)[facility]: 21-94-1082Mqmsbayk Vaccine (1 of 2)Shingrix Vaccine (1 of 2)[facility]: 2018 Zoster vaccine hzv live for subcutaneous useZOSTER (SHINGLES) VACCINE (1 of 2) [facility]: 21-35-5533Balpqfur ScreeningDiabetes Screening [facility]: 18-53-9283Kojvf panelFlower Hospitalt[facility]: 2013 Screening for malignant neoplasm of colonFlower Hospitalt[facility]: 53-46-4353Iicym panelFisher-Titus Medical Centertart: 78-54-9636Ehwlzcxkc for malignant neoplasm of breastFlower Hospitalt[facility]: 01-60-5724Tuqhyzoqo for malignant neoplasm of cervixBon [facility]: 81-49-6466Ycmlbjtwm for malignant neoplasm of cervixFlower Hospitaltart: 26-97-8006LEdB/Tdap/Td vaccine (1 - Tdap) DTaP/Tdap/Td vaccine (1 - Tdap)[facility]: 09-05-1987 Hepatitis A (HAV) Vaccine (optional start 19+ years)Hepatitis A (HAV) Vaccine (optional start 19+ years)[facility]: 33-99-0465Uyfbltjnm B vaccinationOSCommunity Regional Medical Centertart: 97-99-4274Ucxnwigbl B Vaccine (1 of 3 - 19+ 3-dose series)Hepatitis B Vaccine (1 of 3 - 19+ 3-dose series)[facility]: 45-36-2796Ynhakkdsedar 50+ years Vaccine (1 of 2 - PCV)Pneumococcal 50+ years Vaccine (1 of 2 - PCV)[facility]: 23-45-6901Iedbihppunyz Vaccine: 50+ (1 of 2 - PCV)Pneumococcal Vaccine: 50+ (1 of 2 - PCV)[facility]: 09-21-6794Tabcc diphtheria, tetanus and acellular pertussis (DTaP) vaccinationTDAP (ADULT)[facility]: 80-75-6251Fbdbz microalbumin profileDTaP,Tdap,Td Vaccine (1 - Tdap)[facility]: 51-52-6705Tmkqpmeni C screeningFlower Hospitaltart: 91-67-1700MTX screeningHIV ScreeningFlower Hospitalt[facility]: 81-27-1034Rwcr BoosterTdap BoosterMetroC[facility] Clinic [facility] Start: 53-81-1150NLP screeningFisher-Titus Medical Centertart: 1974 Pneumococcal 0-64 years Vaccine (1 of 1 - PPSV23)Pneumococcal 0-64 years Vaccine (1 of 1 - PPSV23)[facility]: 38-84-1738Jguzvodsqeze vaccination Pneumococcal Vaccine (1 of 2 - PCV)[facility]: 83-96-0029Mmjyjdcdj C screeningHEPATITIS C VIRUS SCREENINGOSCommunity Regional Medical Centertart: 1970 Screening for malignant neoplasm of colonColonoscopyMetroHealthStart: 1970 Tetanus vaccinationTETANUSChillicothe VA Medical Center End: 03-17-9494XM Abdomen and Pelvis W contrast IVCT ABD/PEL W IVCON Radiology Routine Left lower quadrant abdominal pain 1 Occurrences starting 01/24/2024 until 5CMary[facility] Work Phone: Comment on above:1 Occurrences starting 01/24/2024 until 02/22/2025T Abdomen and Pelvis W contrast IVCT ABD/PEL W IVCON Radiology Routine Left lower quadrant abdominal pain 02/07/2024 3:31 PM EDTCMarymount Hospital Work Phone: End: 89-88-3758MMK Breast - bilateral screeningMAM SCREENING W KATHY Radiology Routine Encounter for screening mammogram for breast cancer 1 Occurrences starting 01/22/2024 until 02/20/2025[facility] Work Phone: Comment on above:1 Occurrences starting 01/22/2024 until 02/20/2025 End: 74-10-9639KBD Breast - bilateral screeningMAM SCREENING W KATHY Radiology Routine Encounter for screening mammogram for breast cancer 1 Occurrences starting 12/22/2024 until 01/21/2026[facility] Work Phone: Comment on above:1 Occurrences starting 12/22/2024 until 01/21/2026Pathology studySurgical Pathology Lab Routine Encounter for screening colonoscopy Release Upon Ordering for 1 Occurrences starting 09/03/2024on PhotodigmComment on above:Release Upon Ordering for 1 Occurrences starting 09/03/2024 End: 12-76-5993Gebfydgbk colonoscopyCOLONOSCOPY SCREENING Endoscopy Routine Special screening for malignant neoplasms, colon 1 Occurrences starting 01/20/2024 until 01/19/2025[facility] Work Phone: Comment on above:1 Occurrences starting 01/20/2024 until 01/19/2025 End: 93-18-7489PVQHZBRQ PATHOLOGY REPORTSURGICAL PATHOLOGY REPORT Lab Routine Once for 1 Occurrences starting 09/03/2024 until 5Bon PhotodigmComment on above:Once for 1 Occurrences starting 09/03/2024 until 09/03/2024 End: 52-66-3248ZJ Hip - leftUS HIP LEFT Radiology Routine Left groin mass 1 Occurrences starting 01/20/2024 until 02/18/2025[facility] AndersonComment on above:1 Occurrences starting 01/20/2024 until 02/18/2025 End: 83-65-2106PQ Hip - leftUS HIP LEFT Radiology Routine Recurrent left inguinal hernia 1 Occurrences starting 03/09/2024 until 5CMarymount Hospital Work Phone: Comment on above:1 Occurrences starting 03/09/2024 until 04/08/2025 Payers DatePayer CategoryPayerPolicy [id number]-pay2024Medicaid [id number] 2024Medicaid [place] [employer] on file [id number] [facility] xxxxxxxxxxxx 2014-Present [phone] [address] [place], [place] [address]boircvauokam [id number] 2..1.301055.3.57[id number] 2..1.497374.3.57[id number] 2.0.1.699381.3.57[id number] 2.0.1.189122.3.57[id number] 2.0.1.109597.3.57[id number] 2.840.1.045062.3.57[id number] 2.16.840.1.872241.3.57[id number] 2.16.840.1.134507.3.57[id number] 2.16.840.1.515561.3.57[id number] 2.16.840.1.583115.3.57[id number] 2.16.840.1.667729.3.57[id number] 2.16.840.1.426482.3.57[id number] 2..840.1.349176.3.57[id number] 2.16.840.1.526321.3.57[id number] Social History DateTypeDetailFacilityStart: 11-09-2019 End: 76-76-7864Jmysisz smoking status NHISCurrent every day smokerFlower Hospitaltart: 35-78-1326Ldq Assigned At BirthNot on fileBeulaville, [place] Exposure to SARS-CoV-2 (event)Unable to assessBeulaville, [place]Start: 21-06-5699Ofipqdr smoking statusHeavy tobacco smoker (finding)[facility]: 01-20-2024 End: 13-07-5791Qsf Assigned At BirthFemalThe MetroHealth SystemTobacc smoking status NHISTobacco smoking consumption unknownGreen [facility] Hospital Work Phone: Start: 66-24-6192Mlbrska smoking status NHISNever smoked tobaccoGreen Cross Hospital Work Phone: Start: 01-20-2024 End: 36-01-9413Vlwzidtil beverage intakeCurrent drinker of alcohol (finding) [facility]: 01-20-2024 End: 46-23-9470Ngubafu of Social functionFlower Hospitaltart: 74-42-0836Igypz Depression Screening Vslcqwdosh4Fqhwednif ClinicStart: 21-65-0589Hfpiyzp of tobacco useCigarette SmokerFlower Hospitaltart: 03-09-2024 End: 61-46-6936Iemjvcg use and exposureSmokeless tobacco non-userFlower Hospitaltart: 25-94-7552Ojrefet Uomjpun61 oz [facility] Medical CenterHas the electric, gas, oil, or water company threatened to shut off services in your home in past 12SatoBon [employer](I/We) worried whether (my/our) food would run out before (I/we) got money to buy more.Never trueBon [employer] [facility]Start: 28-51-4930Etkuqnf CommentsociallyBon [facility] ArizonaHelpa [facility] GeneralStart: 11-06-2019 End: 25-68-1493HivLusfxi (finding)KupiBonus Functional Status DzyhSrrjukvzodBmxlwdWlgnkwxz90-17-1655Mcgodinzbwu anxiety disorder 7 item (TYREL-7)KupiBonusPannkh89-61-9517Wafncekvzp StatusN/[facility] Clinical Notes 11-14-2023 to 12-22-2024 Note Date & GdwbHrjpYmiypwfq54-45-8260 NotePatient Outreach (INMAVN) SYLVIA BARKSDALE ([id number]) 1970 F Date Time Provider Department 12/22/24 DWAIN PRECIADO INCHAPINCITO During your visit today, we recorded the following information about you: Allergies As of Date: 12/22/2024 (No Known Allergies) Date Reviewed: 03/09/2024 Reviewed by: Jaz Ward MA - Fully Assessed Visit Diagnosis:Encounter for screening mammogram for breast cancer [Z12.31] Order(s):WHITLEY SCREENING W KATHY [[id number]] Order #: [id number] FUTURE Problem List As Of Date: 12/22/2024 (None) Encounter Status:Closed by EPIC, PRODUSER on 01/22/25[facility] 09-03-2024 History of Present illness Narrative* Yuni Cramer RN - 09/03/2024 11:15 AM EDT IV Sedation Discharge Criteria Inpatients must meet Criteria 1 through 7. All other patients are either YES or N/A. If a NO is chosen then Surgeon must be notified. 1. Minimum 30 minutes after last dose of sedative medication, minimum 120 minutes after last dose of reversal agent. Yes 2. Systolic BP stable within 20 mmHg for 30 minutes & systolic BP between 90 & 180 or within 10 mmHg of baseline. Yes 3. Pulse between 60 and 100 or within 10 bpm of baseline. Yes 4. Spontaneous respiratory rate >/= 10 per minute. Yes 5. SaO2 >/= 95 or >/= baseline. Yes 6. Able to cough and swallow or return to baseline function. Yes 7. Alert and oriented or return to baseline mental status. Yes 8. Demonstrates controlled, coordinated movements, ambulates with steady gait, or return to baseline activity function. Yes 9. Minimal or no pain or nausea, or at a level tolerable and acceptable to patient. Yes 10. Takes and retains oral fluids as allowed. Yes 11. Procedural / perioperative site stable. Minimal or no bleeding. Yes 12. If GI endoscopy procedure, minimal or no abdominal distention or passing flatus. Yes 13. Written discharge instructions and emergency telephone number provided. Yes 14. Accompanied by a responsible adult. Yes * Yuni Cramer RN - 08/24/2024 2:59 PM EDT [facility] Preadmission Testing Name: Sylvia Barksdale : 1970 Patient (home) Procedure: COLONOSCOPY Date of Procedure: 09/03/2024 Surgeon: Syed Power MD Ht: 162.6 cm (5' 4 ) Wt: 48.1 kg (106 lb) Wt method: Stated Allergies: Allergies Allergen Reactions Seasonal There were no vitals filed for this visit. No LMP recorded. Patient is premenopausal. Do you take blood thinners? [] Yes [x] No Instructed to stop blood thinners prior to procedure? [] Yes [] No [x] N/A Do you have sleep apnea? [] Yes [x] No Do you have acid reflux ? [] Yes [x] No Do you have hiatal hernia? [] Yes [x] No Do you ever experience motion sickness? [] Yes [x] No Have you had a respiratory infection or sore throat in last 4 weeks before surgery? [x] Yes [] No Resolving. Do you have poorly controlled asthma or COPD? Difficulty with intubation in past? [] Yes [x] No [] Yes [x] No Do you have a history of angina in the last month or symptomatic arrhythmia? [] Yes [x] No Do you have significant central nervous system disease? [] Yes [x] No Have you had an EKG, labs, or chest xray in last 12 months? If yes provide copies to anesthesia [x] Yes [] No [x] Lab [x] EKG [] CXR Have you had a stress test? [x] Yes [] No When/where:unknown Was it normal? [x] Yes [] No Do you or your family have a history of Malignant Hyperthermia? [] Yes [x] No Do you smoke? [x] Yes [] No Please refrain from smoking on the day of surgery. Patient instructed on: [x] NPO Status [x] Meds to Take [] Hold GLP-1 Receptor Agonist [x] Ride Home [] No Jewelry/Contact Lenses/Nail Gabonese [x] Prep/Lax/Clear Liquids [] Chlorhexidene DOS Patient Needs [] HCG [] Blood Sugar [] PT/INR [] T&S Do you have any metal allergies? [] Yes [x] No If yes, to what metals: Patient instructed on the pre-operative, intra-operative, and post-operative process? Yes Medication instructions reviewed with patient? Yes documented in this encounterBon [facility] Discharge instructions* Discharge Instructions* Syed Power MD - 09/03/2024 10:55 AM EDT Images from the original note were not included. 1) You had 2 small polyps which were removed. You will be called with the pathology report and recommendation. 2) On rectal exam it seems you left ovary might be enlarged. - I have order a pelvic ultrasound - I recommend you be evaluated by a animal anatomist as soon as possible 3) Follow up with me as desired. 4) You also have significant diverticulosis of your sigmoid colon. This could contribute to your pain. Information is included below. Discharge Instructions for Colonoscopy Colonoscopy is a visual exam of the lining of the large intestine, also called the bowel or colon, with a colonoscope. A colonoscope is a flexible tube with a light and a viewing device. It allows the doctor to view the inside of the colon through a tiny video camera. Colonoscopy is performed for many reasons: unexplained anemia , pain, diarrhea , bloody stools, cancer screening, among many other reasons. Complications from a colonoscopy are rare. Some possible serious complications include perforated bowel (which might require surgery) and bleeding (which could require blood transfusion ). Minor complications include bloating, gas, and cramping that can last for 1-2 days after the procedure. Because air is put into your colon during the procedure, it is normal to pass large amounts of air from your rectum. You may not have a bowel movement for 1-3 days after the procedure. What You Will Need Someone to drive you home after the procedure Steps to Take Home Care Rest when you get home. Because the sedative will make you drowsy, don't drive, operate machinery, or make important decisions the day of the procedure. Feelings of bloating, gas, or cramping may persist for 24 hours. Diet Try sips of water first. If tolerated, resume regular diet or the diet recommended by your physician. Do not drink alcohol for 24 hours. Physical Activity You may return to work tomorrow. Do not drive, operate heavy machinery, or do activities that require coordination or balance until tomorrow Otherwise, return to your normal routine as soon as you are comfortable to do so, which is usually the next day after the procedure. Medications When taking medications, it's important to: Take your medication as directednot more, not less, not at a different time. Do not stop taking them without consulting your healthcare provider. Don't share them with anyone else. Know what effects and side effects to expect, and report them to your healthcare provider. If you are taking more than one drug, even if it is an vqxo-nvn-eynzdmp medication, herb, or dietary supplement, be sure to check with a physician or pharmacist about drug interactions. Plan ahead for refills so you don't run out. Follow-up You will be called with your results usually within a week or We will have you make a follow up appointment You are always welcome to follow up in person if you have questions or there are other issue you would like addressed Call Your Doctor If Any of the Following Occurs Monitor your recovery once you leave the hospital. As soon as you have a problem, alert your doctor. If any of the following occur, call your doctor or come to the emergency room Bleeding from your rectum; notify your doctor if you pass a teaspoonful or more of blood Black, tarry stools Severe abdominal pain Hard, swollen abdomen Signs of infection, including fever or chills Inability to pass gas or stool Coughing, shortness of breath, chest pain, severe nausea or vomiting In case of an emergency, call 911 immediately. Learning About Diverticulosis and Diverticulitis What are diverticulosis and diverticulitis? In diverticulosis and diverticulitis, pouches called diverticula form in the wall of the large intestine, or colon. In diverticulosis, the pouches do not cause any pain or other symptoms. In diverticulitis, the pouches get inflamed or infected and cause symptoms. Doctors aren't sure what causes these pouches in the colon. But they think that a low-fiber diet may play a role. A low-fiber diet can cause small, hard stools. This means it takes more pressure in the colon to move stools out of the body. This puts more pressure on the cintron of the colon. The pressure from this may cause pouches to form in weak spots along the colon. What are the symptoms? In diverticulosis, most people don't have symptoms. In diverticulitis, symptoms may last from a few hours to a week or more. They include: Belly pain. This is usually in the lower left side. It is sometimes worse when you move. This is the most common symptom. Fever and chills. Bloating and gas. Diarrhea or constipation. Nausea and sometimes vomiting. Not feeling like eating. If the pouches bleed, it is called diverticular bleeding. How can you prevent diverticulitis? You may be able to lower your chance of getting diverticulitis. You can do this by taking steps to prevent constipation. Eat fruits, vegetables, beans, and whole grains every day. These foods are high in fiber. Drink plenty of fluids. If you have kidney, heart, or liver disease and have to limit fluids, talk with your doctor before you increase the amount of fluids you drink. Get at least 30 minutes of exercise on most days of the week. Walking is a good choice. Take a fiber supplement (such as Citrucel or Metamucil) every day if needed. Read and follow all instructions on the label. Schedule time each day for a bowel movement. Having a daily routine may help. Take your time and donot strain when having a bowel movement. How are these problems treated? The best way to treat diverticulosis is to avoid constipation. Treatment for diverticulitis includes antibiotics. It often includes a change in your diet. You may need only liquids at first. Your doctor may suggest medicines for pain or belly cramps. In some cases, surgery may be needed. Follow-up care is a bolanos part of your treatment and safety. Be sure to make and go to all appointments, and call your doctor if you are having problems. It's also a good idea to know your test resultsand keep a list of the medicines you take. Where can you learn more? Go to https://www.TheVegibox.com.net/patientEd and enter E426 to learn more about Learning About Diverticulosis and Diverticulitis. Current as of: March 14, 2024 Content Version: 14.4 [place]. Care instructions adapted under license by [employer]. If you have questions about a medical condition or this instruction, always ask your healthcare professional. [place], disclaims any warranty or liability for your use of this information. documented in this encounterBon [facility] History of Present illness Narrative* Caridad José MD - 06/24/2024 10:05 AM EST General Surgery New Patient Visit Chief Complaint: left groin pain History of Present Illness: A 53 year old White female presents to the Surgery Clinic for evaluation of left groin pain s/p two open left inguinal hernia repairs. Noticed a lump in the left groin in September 2023. She reports previous mesh repair in [place], [place] 2 years ago. There is some discomfort when she lifts something or is more active. She experiences shooting pain in the left leg that radiatesdown the leg. Reports lifting 40-50 lbs of pellets for her stove. Sometimes takes Tylenol for pain control. Intermittent constipation. Not on a bowel regimen. Reports a colonoscopy over 20 years ago and reports that it was normal. No obstructions or incarcerations. Currently does not have a PCP. Marie cason denies any past medical history and not on pain medications. [facility] Notes reviewed. She had two prior open left inguinal herniapairs with mesh. She was evaluated by general surgery and there was no concern for recurrent herniaon physical exam or upon review of CT [...] with report of LLQ pain and weight loss.She reports an acute physical decline and weight loss in September 2023 and within that month lost 25 pounds. Bouts of diarrhea with po intake, it is now improving. Says she had recent infections in her liver and kidney requiring antibiotics and a kidney cleanse that occurred in October-November 2023. Says she started the process for [facility] but did not complete. BMI- 17.51 Abdominal Surgeries- 30 years ago +Smoking for 20 years, 1 PPD No Diabetes No Chronic cough No DVT/PE No anticoagulation Imaging CT A/P 02/07/24 at [facility] GI tract: The stomach is distended. Of [...] History: Procedure Laterality Date REPAIR INGUINAL HERNIA [id number] Social History Socioeconomic History Marital status: Review [...] memory loss, disorientation, inattention, feelings of depression) Hematologic/Lymphatic/Immunologic: negative (no anemia, bleeding, bruising) Endocrine: negative review of symptoms PHYSICAL EXAMINATION: BP 106/70 (BP Location: left arm, BP position: sitting, Cuff Size: adult) Pulse 69 Resp 14 Ht5' 4 (1.626 m) Wt 102 lb (46.3 kg) BMI 17.51 kg/m General appearance: no distress Skin: Skin color, texture, turgor normal. Head: Normocephalic. Eyes: conjunctivae not injected /corneas clear. Back: Back symmetric Lungs: Chest symmetric. Normal respiratory effort Abdomen: soft, non-distended, non-tender to palpation. Well healed left groin incision. No evidenceof an inguinal hernia on Valsalva. Extremities: Extremities normal. Neuro: Intact. I have personally reviewed: Pertinent Laboratory tests Imaging (pt brought in discs of images from outside facility) Previous records and relevant history from other providers Plan of care to be discussed with referring and consulting providers Assessment: 53 F s/p open left inguinal hernia repair with mesh x 2 at an outside hospital. No recurrent hernia on exam or on imaging. Symptoms more consistent with chronic nerve pain. Plan: - no acute surgical intervention as there is no recurrent hernia - Referrals for GI and for a colonoscopy (unexplained weight loss and abdominal pain), referral to pain management regarding chronic nerve pain s/p inguinal hernia repair. Patient [place] 70 [place]and would like to establish care closer to her home. All questions and concerns addressed. Caridad José MD Bariatric and General Surgery documented in this [id number] History and physical note* Sheila Bernabe MD - 04/01/2024 1:30 PM EST Chief Complaint Patient presents with Consult Groin Lump Evaluation of left groin bulge x 1 year, h/o right inguinal hernia repair x 2. +++++++++++++++++++++++++++++++++++++++++++++++++++++++++ HPI +++++++++++++++++++++++++++++++++++++++++++++++++++++++++ History of Present Illness The patient presents for evaluation of a left inguinal hernia. She is accompanied by an adult male. She has undergone two open inguinal hernia repairs on the left side, both involving small incisionsin the groin area and the placement of [...] have become difficult. She has consulted a fuel quality tech about these issues. She uses a stimulator [...] that includes hernia repair (Right); hernia repair (Right);and section. The patients family history is not on file. The patient has a current medication list which includes the following prescription(s): acetaminophen. The patient is has No Known Allergies. The patient reports that she has been smoking cigarettes. She has never used smokeless tobacco. Shereports current alcohol use of about 2.0 standard drinks of alcohol per week. She reports that she does not currently use drugs. I have reviewed the patient's medical history in detail and updated the computerized patient record. +++++++++++++++++++++++++++++++++++++++++++++++++++++++++ REVIEW OF SYSTEMS +++++++++++++++++++++++++++++++++++++++++++++++++++++++++ CONSTITUTIONAL > >Normal ORIENTATION X 3 MOOD/AFFECT [...] > >Normal ALL OTHERS > > >Normal +++++++++++++++++++++++++++++++++++++++++++++++++++++++++ PHYSICAL EXAM +++++++++++++++++++++++++++++++++++++++++++++++++++++++++ Resp 16 Ht 1.626 m (5' 4 [...] No masses, symmetry, no crepitus >Normal RESPIRATORY Normal Respiratory Effort > > > >Normal Percussion > > > >Normal Palpitation > > > > >Normal Auscultation > > > >Normal CARDIOVASCULAR Normal Palpitation > > > > >Normal Ausculation shows no MRG > >Normal CCE > > > > >Normal +++++++++++++++++++++++++++++++++++++++++++++++++++++++++ ABDOMEN Normal Masses or Tenderness > > >No Hepatosplenomegaly > >No Herrnias > > > > >No +++++++++++++++++++++++++++++++++++++++++++++++++++++++++ GENITOURINARY Normal Normal LYMPHATIC Normal Cervical Nodes > > > >Normal Supraclavicular Nodes > > >Normal Axillary Nodes > > > >Normal Groin Nodes > > >Normal MUSCULOSKELETAL Normal Gait and Station > > > >Normal SKIN NormalInspec tion and Palpitation > > >Normal +++++++++++++++++++++++++++++++++++++++++++++++++++++++++ TESTS/IMAGING +++++++++++++++++++++++++++++++++++++++++++++++++++++++++ ULTRASOUND CCK-HIDA SCAN UGI-SBFT CT SCAN-A/P ABDOMINAL MRI COLONOSCOPY +++++++++++++++++++++++++++++++++++++++++++++++++++++++++ ASSESSMENT +++++++++++++++++++++++++++++++++++++++++++++++++++++++++ DIAGNOSIS: ++++++++++++++++++++++++++++++++++++++++++++++++++++ PLAN ++++++++++++++++++++++++++++++++++++++++++++++++++++ Assessment & Plan 1. Left inguinal hernia. [...] to try a left ilialinguinal nerve block first,as her hernia is still repaired on CT. Treatment alternatives were discussed. Discussed aspects of surgical intervention, methods, risks (including by not limited to infection, bleeding, hematoma, and perforation of the intestings or solid organs) and the risks of general anesthetic including [place], CVA, sudden or even reaction to anesthetic medications. The patient understands the risks, any and all questions were answered to the patient's satisfaction. Patient does not wish to proceed with surgery. Written consent was obtained. This was a 20 minute or more consultation, the majority of time was spent in vuav-aj-[id number] contact with the patient and counseling her regarding the current diagnosis. [facility] Work Phone: [phone]) 959-394911-06-2024 History and physical note* Sheila Bernabe MD - 04/01/2024 1:30 PM EST Chief Complaint Patient presents with Consult Groin Lump Evaluation of left groin bulge x 1 year, h/o right inguinal hernia repair x 2. +++++++++++++++++++++++++++++++++++++++++++++++++++++++++ HPI +++++++++++++++++++++++++++++++++++++++++++++++++++++++++ History of Present Illness The patient presents for evaluation of a left inguinal hernia. She is accompanied by an adult male. She has undergone two open inguinal hernia repairs on the left side, both involving small incisionsin the groin area and the placement of [...] have become difficult. She has consulted a fuel quality tech about these issues. She uses a stimulator [...] that includes hernia repair (Right); hernia repair (Right);and section. The patients family history is not on file. The patient has a current medication list which includes the following prescription(s): acetaminophen. The patient is has No Known Allergies. The patient reports that she has been smoking cigarettes. She has never used smokeless tobacco. Shereports current alcohol use of about 2.0 standard drinks of alcohol per week. She reports that she does not currently use drugs. I have reviewed the patient's medical history in detail and updated the computerized patient record. +++++++++++++++++++++++++++++++++++++++++++++++++++++++++ REVIEW OF SYSTEMS +++++++++++++++++++++++++++++++++++++++++++++++++++++++++ CONSTITUTIONAL > >Normal ORIENTATION X 3 MOOD/AFFECT [...] > >Normal ALL OTHERS > > >Normal +++++++++++++++++++++++++++++++++++++++++++++++++++++++++ PHYSICAL EXAM +++++++++++++++++++++++++++++++++++++++++++++++++++++++++ Resp 16 Ht 1.626 m (5' 4 [...] No masses, symmetry, no crepitus >Normal RESPIRATORY Normal Respiratory Effort > > > >Normal Percussion > > > >Normal Palpitation > > > > >Normal Auscultation > > > >Normal CARDIOVASCULAR Normal Palpitation > > > > >Normal Ausculation shows no MRG > >Normal CCE > > > > >Normal +++++++++++++++++++++++++++++++++++++++++++++++++++++++++ ABDOMEN Normal Masses or Tenderness > > >No Hepatosplenomegaly > >No Herrnias > > > > >No +++++++++++++++++++++++++++++++++++++++++++++++++++++++++ GENITOURINARY Normal Normal LYMPHATIC Normal Cervical Nodes > > > >Normal Supraclavicular Nodes > > >Normal Axillary Nodes > > > >Normal Groin Nodes > > >Normal MUSCULOSKELETAL Normal Gait and Station > > > >Normal SKIN NormalInspec tion and Palpitation > > >Normal +++++++++++++++++++++++++++++++++++++++++++++++++++++++++ TESTS/IMAGING +++++++++++++++++++++++++++++++++++++++++++++++++++++++++ ULTRASOUND CCK-HIDA SCAN UGI-SBFT CT SCAN-A/P ABDOMINAL MRI COLONOSCOPY +++++++++++++++++++++++++++++++++++++++++++++++++++++++++ ASSESSMENT +++++++++++++++++++++++++++++++++++++++++++++++++++++++++ DIAGNOSIS: ++++++++++++++++++++++++++++++++++++++++++++++++++++ PLAN ++++++++++++++++++++++++++++++++++++++++++++++++++++ Assessment & Plan 1. Left inguinal hernia. [...] to try a left ilialinguinal nerve block first,as her hernia is still repaired on CT. Treatment alternatives were discussed. Discussed aspects of surgical intervention, methods, risks (including by not limited to infection, bleeding, hematoma, and perforation of the intestings or solid organs) and the risks of general anesthetic including KY, CVA, sudden or even reaction to anesthetic medications. The patient understands the risks, any and all questions were answered to the patient's satisfaction. Patient does not wish to proceed with surgery. Written consent was obtained. This was a 20 minute or more consultation, the majority of time was spent in wlar-tv-bkqu contact with the patient and counseling her regarding the current diagnosis. documented in this encounterOS[facility] Tele[facility] encounter Note* Telephone Encounter - Yoon Benson - 03/27/2024 11:07 AM EDT Called patient on March 27, 2024 at 11:07 AM to schedule their MSK US exam. PT declined to schedule due to availability. PT will call back if PT decides to schedule the appointment. [facility]11-01-2024 Miscellaneous Notes* Telephone Encounter - Yoon Benson - 03/27/2024 11:07 AM EDT Called patient on March 27, 2024 at 11:07 AM to schedule their MSK US exam. PT declined to schedule due to availability. PT will call back if PT decides to schedule the appointment. * Telephone Encounter - Yoon Benson - 03/27/2024 10:08 AM EDT Visit Type: ANY MSK Visit Length: 45, 50 OR 60 MINUTES Order Name/Protocol: US HIP LT; MEDIAL-EVAL FOR LT INGUINAL HERNIA Preferred Provider: N/A Comment: Please ask if the patient has ever had any prior surgery to their LT groin. If so, upgradethe visit type to an MSK1 and notate the surgical hx in the Appointment Note. Location: Depending on the surgical hx, this patient can have this exam performed at any of our four locations. Slot held: N/A documented in [facility]Green [facility] Telephone encounter Note * Telephone Encounter - Yoon Benson - 03/27/2024 10:08 AM EDT Visit Type: ANY MSK Visit Length: 45, 50 OR 60 MINUTES Order Name/Protocol: US HIP LT; MEDIAL-EVAL FOR LT INGUINAL HERNIA Preferred Provider: N/A Comment: Please ask if the patient has ever had any prior surgery to their LT groin. If so, upgradethe visit type to an MSK1 and notate the surgical hx in the Appointment Note. Location: Depending on the surgical hx, this patient can have this exam performed at any of our four locations. Slot held: N/A [facility]10-17-2024 Telephone encounter Note* Telephone Encounter - Dona Mcginnis RN - 03/12/2024 6:25 PM EDT Opened in error unable to send mychart or text [facility]10-17-2024 Miscellaneous Notes* Telephone Encounter - Dona Mcginnis RN - 03/12/2024 6:25 PM EDT Opened in error unable to send mychart or text documented in this encounterGreen [facility]10-17-[facility]24 Telephone encounter Note * Telephone Encounter - Dona Mcginnis RN - 03/12/2024 6:18 PM EDT Contacted patient- [facility] and was told on two or three occasions that she was not with the right team. Reviewed pt's medical concerns and assured her that Dr. Angulo is the correct surgeon for her intestinal malrotation. Offered to schedule pt- declined. Re-iterated that she is very dissatisfied with the [facility] and is transferring care. Offered pt this Rns contact info in case she needs to connect with someone from [facility] who can assist. [facility]10-17-2024 Miscellaneous Notes* Telephone Encounter - Dona Mcginnis RN - 03/12/2024 6:18 PM EDT Contacted patient- very upset that [facility] and was told on two or three occasions that she was not with the right team. Reviewed pt's medical concerns and assured her that Dr. Angulo is the correct surgeon for her intestinal malrotation. Offered to schedule pt- declined. Re-iterated that she is very dissatisfied with the [facility] and is transferring care. Offered pt this Rns contact info in case she needs to connect with someone from [facility] who can assist. documented in this encounterGreen Cross Hospital10-14-2024 NoteHNO ID: [id number] Author: DAVE SENA MD Service: ? Author [...] our notes. Patient consented for study? [facility] History of Present illness Narrative* Dave Sena MD - 03/09/2024 3:05 PM EDT Consultation requested by Dr. Leora Mei for [...] for study? Not applicable documented in this encounterGreen Cross Hospital10-14-2024 History and physical note * Jeanette Arias MD - 03/09/2024 3:[address] [facility] Abdominal [facility] - HISTORY AND PHYSICAL Chief Complaint: [...] left groin with pain, and has constipation, abdominalpain, bloating, and cramping. Recent CT shows incidentally [...] volvulus or obstruction, no hernia recurrence on directread Plan: - No recurrence of hernia on CT or exam - Will get US of L groin - Consult to Dr. Luevano regarding malrotation Discussed with Dr. Hilario Arias MD General Surgery PGY1 [facility]10-14-2024 History and physical note* Jeanette Arias MD - 03/09/2024 3:[address] [facility] Abdominal [facility] - HISTORY AND PHYSICAL Chief Complaint: [...] left groin with pain, and has constipation, abdominalpain, bloating, and cramping. Recent CT shows incidentally [...] volvulus or obstruction, no hernia recurrence on directread Plan: - No recurrence of hernia on CT or exam - Will get US of L groin - Consult to Dr. Luevano regarding malrotation Discussed with Dr. Hilario Arias MD General Surgery PGY1 documented in this encounterGreen Cross Hospital10-14-2024 Nurse Note* Jaz Ward MA - 03/09/2024 2:41 PM EDT What is the reason for your visit today? Consult Who is your referring physician? Leora Mei Are you having poor oral intake? NO Have you had unintentional weight loss of 15 lbs/7 Kg in the last 3-6 months? YES Bowels: constipated, diarrhea, or regular Wound: None Temperature: No Drains: No [facility]10-14-2024 Nurse Note* Jaz Ward MA - 03/09/2024 2:41 PM EDT What is the reason for your visit today? Consult Who is your referring physician? Leora Mei Are you having poor oral intake? NO Have you had unintentional weight loss of 15 lbs/7 Kg in the last 3-6 months? YES Bowels: constipated, diarrhea, or regular Wound: None Temperature: No Drains: No documented in this encounterGreen Cross Hospital09-17-2024 Telephone encounter Note * Telephone Encounter - Leora Mei PA-C - 02/11/2024 1:49 PM EDT I called patient and advised of below: [...] emergent attention. Patient voiced understanding and appreciative. [facility]09-17-2024 Miscellaneous Notes* Telephone Encounter - Leora Mei PA-C - 02/11/2024 1:49 PM EDT I called patient and advised of below: [...] voiced understanding and appreciative. documented in this encounterGreen Cross Hospital09-13-2024 History of Present illness Narrative* Kelsie Martines RT(Rogelio) - 02/07/2024 2:00 PM EDT Radiology Service Progress Note DATE OF SERVICE: [...] PATIENT PRESENTS WITH AN IMPLANTABLE OR ATTACHED GROCERY CARRIER: No ALLERGIES: Reviewed and unchanged CONTRAST ALLERGY: [...] 2024 TIME: 3:20 PM documented in this encounterGreen Cross Hospital09-13-2024 NoteHNO ID: [id number] Author: KELSIE MARTINES RT(R) Service: ? Author [...] PATIENT PRESENTS WITH AN IMPLANTABLE OR ATTACHED GROCERY CARRIER: No ALLERGIES: Reviewed and unchanged CONTRAST ALLERGY: [...] [place] DATE: February 07, 2024 TIME: 3:20 [facility]08-30-2024 History and physical note* Kings Landers III, MD - 01/24/2024 11:44 AM EDT Ms. Barksdale is here today at the request of Dwain Preciado [id number] [facility] [address] for my opinion regarding abdominal pain. My [...] time. Attending note: Patient seen by Mine Santana RN and myself. I personally examined the patient, all components above personally confirmed, note attended where appropriate. History and exam as noted above reviewed. Agree with plan as discussed above. Kings Landers III, MD cc: Referring provider Dwain Preciado [id number] [facility] [address] [facility]08-30-2024 History and physical note* Kings Landers III, MD - 01/24/2024 11:44 AM EDT Ms. Barksdale is here today at the request of Dwain Preciado [id number] [facility] [address] for my opinion regarding abdominal pain. My [...] time. Attending note: Patient seen by Mine Santana RN and myself. I personally examined the patient, all components above personally confirmed, note attended where appropriate. History and exam as noted above reviewed. Agree with plan as discussed above. Kings Landers III, MD cc: Referring provider Dwain Preciado [id number] [place] [address] documented in this encounterGreen Cross Hospital08-27-2024 Telephone encounter Note * Telephone Encounter - Joanne Robledo - 01/21/2024 3:44 PM EDT Patient called on January 21, 2024 at 3:45 PM to schedule their MSK US exam. Pt declined to scheduledue to availability. [facility]08-27-2024 Miscellaneous Notes* Telephone Encounter - Joanne Robledo - 01/21/2024 3:44 PM EDT Patient called on January 21, 2024 at 3:45 PM to schedule their MSK US exam. Pt declined to scheduledue to availability. * Telephone Encounter - Joanne Robledo - 01/21/2024 11:00 AM EDT Called patient on January 21, 2024 at 11:00 AM to schedule their MSK US exam. No answer, left VM, 1st attempt. * Telephone Encounter - Alie Baldwin PCNA - 01/21/2024 8:30 AM EDT Visit Type: US MSK1 Visit Length: 45 OR 60 MINUTES Order Name/Protocol: US HIP LT; MEDIAL-EVAL FOR LT INGUINAL HERNIA, S/P SURGERY Preferred Provider: N/A Comment: N/A Location: [facility] Slot held: N/A documented in this encounterGreen Cross Hospital08-27-2024 Telephone encounter Note * Telephone Encounter - Joanne Robledo - 01/21/2024 11:00 AM EDT Called patient on January 21, 2024 at 11:00 AM to schedule their MSK US exam. No answer, left VM, 1st attempt. [facility]08-27-2024 Telephone encounter Note* Telephone Encounter - Alie Baldwin PCNA - 01/21/2024 8:30 AM EDT Visit Type: US MSK1 Visit Length: 45 OR 60 MINUTES Order Name/Protocol: US HIP LT; MEDIAL-EVAL FOR LT INGUINAL HERNIA, S/P SURGERY Preferred Provider: N/A Comment: N/A Location: [facility] Slot held: N/A [facility]08-26-2024 Telephone encounter Note* Telephone Encounter - Kelly Granados - 01/20/2024 5:50 PM EDT Pt has order for US Hip I am directed to refer to you for scheduling. [facility]08-26-2024 Miscellaneous Notes* Telephone Encounter - Kelly Granados - 01/20/2024 5:50 PM EDT Pt has order for US Hip I am directed to refer to you for scheduling. documented in this encounterGreen Cross Hospital08-26-2024 Instructions* Patient Instructions* Dwain Preciado, DO - 01/20/2024 5:22 PM EDT Images from the original note were not included. Bowel Preparation Instructions for: Miralax-Gatorade Preparations IF YOU DO NOT FOLLOW THESE DIRECTIONS, YOUR COLONOSCOPY WILL BE CANCELLED. [place] Instructions: Your bowel must be empty so [...] If you do not have a responsible driver/merchandiser (family member or friend) withyou to take you home, your exam cannot be done with sedation and will be cancelled. Please bring a list of all of your current medications, including any Iydb-cxq-Bxndhst medications with you. Medications If you take insulin, diabetic medications or blood thinners such as Coumadin (warfarin), Plavix (clopidogrel), Ticlid (ticlopidine hydrochloride), Agrylin (anagrelide), Xarelto (Rivaroxaban), Pradaxa(Dabigatran), Eliquis (Apixaban), and Effient (Prasugrel). You MUST [...] every 15 minutes for a total of 2glasses. You may continue to drink clear liquids up to (three) 3 hours before your exam. 2 04/2019 documented in this encounterGreen Cross Hospital08-26-2024 History of Present illness Narrative* Dwain Preciado DO - 01/20/2024 5:05 PM EDT CC: Sylvia Barksdale is a 53 year [...] She had CT A/P without contrast at [facility] with written report today that demonstrated no pathology in her left groin. The pain is worse with activity. Tobacco use disorder---smokes ~1 ppd. Not interested in quitting. Drinks EtOH socially. Family hx updated in EMR, includes colon cancer in father and brother. 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 Stays active with odd jobs. Has labs from [facility] in October 2023 visit including LDL [...] Social History reviewed with patient and in Epic Medications and Allergies reviewed with patient and [...] RRR without murmur Groin: Examined with female rustic fence builder. Small, ~2cm in diameter palpable mass to [...] health maintenance tasks including routine cancer screening. [facility] CSY today Dwain Preciado DO January 20, 2024 5:05 PM This note was partially generated using [employer] voice recognition system, and there may be some incorrect words, spellings, and punctuation that were not noted in checking the note before saving. . documented in this encounterGreen Cross Hospital07-12-2024 Telephone encounter Note * Telephone Encounter - Mine Santana RN - 12/06/2023 1:20 PM EDT Spoke with patient as I referred the scanned documents and wanted more information. Per patient shehas a hernia in the groin again and it has been repaired at least 3-4 times per patient. I informedpatient that if this is the case then she needs to see Hernia team as would be considered complex due to those numerous repairs. Patient voiced understanding. Patient then states she has some groin lymph nodes and other enlarged lymph nodes and was supposed to see Internal Medicine for a work upand that this is her primary focus and does not want to see anyone around where she lives as she feels it is very complex. I informed patient I dont see a referral for IM but again if having involved issues she may want to see someone at ( patient would prefer one location of services). InformedI am cancelling appt for Saturday and I will see if our planner scheduler can reach out to for an appt as she wants that appt first before a hernia Team appt. [facility]07-12-2024 Miscellaneous Notes* Telephone Encounter - Mine Santana RN - 12/06/2023 1:20 PM EDT Spoke with patient as I referred the scanned documents and wanted more information. Per patient shehas a hernia in the groin again and it has been repaired at least 3-4 times per patient. I informedpatient that if this is the case then she needs to see Hernia team as would be considered complex due to those numerous repairs. Patient voiced understanding. Patient then states she has some groin lymph nodes and other enlarged lymph nodes and was supposed to see Internal Medicine for a work upand that this is her primary focus and does not want to see anyone around where she lives as she feels it is very complex. I informed patient I dont see a referral for IM but again if having involved issues she may want to see someone at ( patient would prefer one location of services). InformedI am cancelling appt for Saturday and I will see if our planner scheduler can reach out to for an appt as she wants that appt first before a hernia Team appt. [facility] Discharge instructions Patient Education 11/14/2023 16:59:22 [...] Follow these instructions at home: Medicines Take msgb-kfb-smdygyb and prescription medicines only as told by [...] Watch your condition for any changes. Take ngdr-sby-vzfyypr and prescription medicines only as told by [...] provider. Document Revised: 07/01/2020 Document Reviewed: 09/21/2019 [employer] Patient Education 2022 [employer]. Follow Up Care 11/14/2023 14:43:44 With:Yuri LEA Address: [address] [address]- Business (1) When:11/17/2023 16:51:32 With:CRISTIANE JEREZ Address: [address] [place] [address]- [phone] Business (1) When:Within 3 Day(s) [facility] No data available for this section [facility] Diagnosis Annual physical exam- Primary Routine general medical examination at a health care facility Special screening for malignant neoplasms, colon Encounter for screening examination for other mental health and behavioral disorders Screening for depression Left groin mass Tobacco use disorder [facility] Diagnosis Reducible left inguinal hernia- Primary Left groin mass History of left inguinal hernia repair Personal history of surgery to other organs LLQ pain Abdominal pain, left lower quadrant Left lower quadrant abdominal pain documented in this encounter [facility] note* Diagnosis Encounter for screening mammogram for breast cancer [facility] Diagnosis Left lower quadrant abdominal pain documented in this encounter [facility] note* Diagnosis Recurrent left inguinal hernia- Primary Inguinal hernia without mention of obstruction or gangrene, recurrent unilateral or unspecified documented in this encounter 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 note* Diagnosis Left groin pain- Primary Abdominal pain, left lower quadrant [facility] Diagnosis TYREL (generalized anxiety disorder) Generalized anxiety disorder Moderate episode of recurrent major depressive disorder (HCC) Bipolar 1 disorder with moderate saeid (HCC) Bipolar I disorder, most recent episode (or current) manic, moderate [facility]* Diagnosis Unintentional weight loss Loss of weight Pre-op testing Preoperative examination, unspecified Encounter for screening colonoscopy- Primary Special screening for malignant neoplasms, colon Encounter for screening colonoscopy Special screening for malignant neoplasms, colon documented in this [facility]* Diagnosis Pre-op testing Preoperative examination, unspecified Encounter for screening colonoscopy Special screening for malignant neoplasms, colon documented in this [facility] note* Diagnosis Encounter for screening colonoscopy- Primary Special screening for malignant neoplasms, colon Encounter for screening colonoscopy Special screening for malignant neoplasms, colon Family history of colon cancer Family history of malignant neoplasm of gastrointestinal tract TYREL (generalized anxiety disorder) Generalized anxiety disorder Moderate episode of recurrent major depressive disorder (HCC) Smoker Tobacco use disorder Bipolar 1 disorder with moderate saeid (HCC) Bipolar I disorder, most recent episode (or current) manic, moderate Left ovarian enlargement Other noninflammatory disorder of ovary, fallopian tube, and broad ligament Family history of colon cancer Family history of malignant neoplasm of gastrointestinal tract documented in this encounter [facility]* Diagnosis Left ovarian enlargement Other noninflammatory disorder of ovary, fallopian tube, and broad ligament [facility] Diagnosis Left lower quadrant abdominal pain- Primary Body mass index (BMI) 19.9 or less, adult [facility] Diagnosis Encounter for screening mammogram for breast cancer [facility] encounter [facility] Attachments The following attachments cannot be sent through Care Everywhere. * Colonoscopy (Senegalese) documented in [facility] encounter[facility]HealthProgress note No data available for this section [facility] for referral (narrative)* Diagnostic Procedure Only (Routine) - New RequestSpecialtyDiagnoses / ProceduresReferred By ContactReferred To ContactBR IMAGING Diagnoses Encounter for screening mammogram for breast cancer Procedures WHITLEY SCREENING W KATHY SCREENING DIGITAL BREAST TOMOSYNTHESIS BI SCREENING MAMMOGRAPHY BI 2-[place] [address] [place] [address] [facility] [address] [place] [address] Referral [facility] DateExpiration DateVisits RequestedVisits [id number] Request Auto-Generated Referral / [facility] for referral (narrative)* Consultation (Routine) - New RequestSpecialtyDiagnoses / ProceduresReferred By ContactReferred To Contact Spine Diagnoses Left groin pain Sheila Bernabe MD [address] [place] [address] [place] [phone] Referral IDStatusReasonStwest rupert DateExpiration DateVisits RequestedVisits [id number] Zaadnuk15/ [facility] for visit Narrative* Auth/CertSpecialtyDiagnoses / ProceduresReferred By ContactReferred To Contact Diagnoses Encounter for screening colonoscopy Procedures RI COLON CA SCRN NOT HI RSK IND RI COLONOSCOPY FLX DX W/COLLJ SPEC WHEN PFRMD RI COLONOSCOPY W/BIOPSY SINGLE/MULTIPLE RI COLSC FLX W/RMVL OF TUMOR POLYP LESION SNARE TQ COLORECTAL CANCER SCREENING, NOT HIGH RISK Syed Power MD [address] [place] [address] Phone: tel: [facility] [address] [place] [address] Referral IDStatusNatputnam county memorial hospitalStwest rupert DateExpiration DateVisits RequestedVisits [id number] [facility] for visit Narrative* Imaging (Routine) - Open SpecialtyDiagnoses / ProceduresReferred By ContactReferred To ContactRadiology Diagnoses Left ovarian enlargement Procedures US PELVIS COMPLETE Syed Power MD Phone: tel: fax: Referral IDStatusReasonStart DateExpiration DateVisits RequestedVisits [id number]/10/20254/ [facility] Summary Purpose Family History No Family History [...] No Advanced Directives Records FoundDocuments on File TypeDate RecordedPatient RepresentativeExplanationAdvance Directives and Living WillPower of AttorneyCode StatusDate ActivatedDate InactivatedCommentsFull Code 11/06/2019 6:02 PMDate ActivatedDate InactivatedComments11/06/2019 6:02 PM 11/13/2019 7:07 PMDate ActivatedDate InactivatedComments11/06/2019 6:02 PM 11/13/2019 7:07 PM Reason for Referral SpecialtyDiagnoses / ProceduresReferred By ContactReferred To ContactGeneral Surgery Diagnoses Malrotation of intestine Procedures CONSULT TO GENERAL SURGERY OFFICE/OUTPATIENT [facility] 60 MINUTES Dave Sena MD [address] [place] [address] Peter Angulo MD [address] [place] [address] Referral IDStatusReasonStart DateExpiration DateVisits RequestedVisits [id number] PCP Requested Referral [id number] / ProceduresReferred By ContactReferred To ContactUS IMAGING Diagnoses Recurrent left inguinal hernia Procedures US HIP LEFT US COMPL JOINT R-T W/IMAGE DOCUMENTATION Dave Sena MD [address] [place] [address] [facility] [place] [address] Referral IDStatusReasonStart DateExpiration DateVisits RequestedVisits [id number] Request Auto-Generated Referral [id number] / ProceduresReferred By ContactReferred To ContactGeneral Surgery Diagnoses Recurrent left inguinal hernia Procedures CONSULT TO GENERAL SURGERY OFFICE/OUTPATIENT [facility] 60 MINUTES Leora Mei PA-C [address] [place] [address] Referral IDStatusReasonStart DateExpiration DateVisits RequestedVisits [id number] PCP Requested Referral [id number] / ProceduresReferred By ContactReferred To ContactCT IMAGING Diagnoses Left lower quadrant abdominal pain Procedures CT ABD/PEL W IVCON CT ABD & PELVIS W/CONTRAST Kings Landers III, MD [address] [place] [address] [facility] Referral IDStatusReasonStart DateExpiration DateVisits RequestedVisits [id number] Auto-Generated Referral /[id number] / ProceduresReferred By ContactReferred To ContactGeneral Surgery Diagnoses Left groin mass Procedures CONSULT TO GENERAL SURGERY OFFICE/OUTPATIENT [facility] [address] [place] [address] [place] [address] Referral IDStatusReasonStart DateExpiration DateVisits RequestedVisits [id number] PCP Requested Referral [id number] / ProceduresReferred By ContactReferred To ContactUS IMAGING Diagnoses Left groin mass Procedures US HIP LEFT US COMPL JOINT R-T W/[place] [address] [place] [address] [place] [address] Referral IDStatusReasonStart DateExpiration DateVisits RequestedVisits [id number] Request Auto-Generated Referral [id number] / ProceduresReferred By ContactReferred To [facility] Diagnoses Special screening for malignant neoplasms, colon Procedures COLONOSCOPY SCREENING COLONOSCOPY FLX DX W/COLLJ SPE[place] [address] [place] [address] [facility] [address] [place] [address] Referral IDStatusReasonStart DateExpiration DateVisits RequestedVisits [id number] Auto-Generated Referral Additional Source Comments INFORMATION SOURCE (unrecogn ized section and content) DATE CREATED AUTHOR 12/14/2017 [facility] DATE CREATED AUTHOR AUTHOR'S ORGANIZ ATION 11/19/2019 [facility] DATE CREATED AUTHOR AUTHOR'S ORGANIZ ATION 12/12/2019 [facility] DATE CREATED AUTHOR AUTHOR'S ORGANIZ ATION 08/24/2022 [facility] DATE CREATED AUTHOR AUTHOR'S ORGANIZ ATION 10/20/2023 [facility] DATE CREATED AUTHOR AUTHOR'S ORGANIZ ATION 04/03/2024 [facility] DATE CREATED AUTHOR AUTHOR'S ORGANIZ ATION 06/26/2024 [facility] DATE CREATED AUTHOR AUTHOR'S ORGANIZ ATION 2024 [facility] DATE CREATED AUTHOR AUTHOR'S ORGANIZ ATION 10/08/2024 [facility] DATE CREATED AUTHOR AUTHOR'S ORGANIZ ATION 11/03/2024 [facility] DATE CREATED AUTHOR AUTHOR'S ORGANIZ ATION 01/24/2025 [facility] Patient Care team informatio n (unrecognized section and content) Team MemberRelationshipSpecialtyStart DateEnd Date Cristiane Jerez CNP [address] [place] [address] Internal Medicine11/27/23Team MemberRelationshipSpecialtyStart [place] [address] [place] [address] PCP - GeneralInternal Medicine01/20/24 Cristiane Jerez, LEAD NEURODIAGNOSTIC TECHNOLOGIST.ASPHALT MIXER [address] [place] [address] Internal Medicine11/27/23Team MemberRelationshipSpecialtyStart [place] [address] [place] [address] PCP - GeneralInternal Medicine01/20/24 Cristiane Jerez, LEAD NEURODIAGNOSTIC TECHNOLOGIST.ASPHALT MIXER [address] [place] [address] Internal Medicine11/27/23Team MemberRelationshipSpecialtyStart [place] [address] [place] [address] PCP - GeneralInternal Medicine01/20/24 Cristiane Jerez, LEAD NEURODIAGNOSTIC TECHNOLOGIST.ASPHALT MIXER [address] [place] [address] Internal Medicine11/27/23Team MemberRelationshipSpecialtyStart DateEnd Date Dwain Preciado, [address] [place] [address] PCP - GeneralInternal Medicine01/20/24 Cristiane Jerez, LEAD NEURODIAGNOSTIC TECHNOLOGIST.ASPHALT MIXER [address] [place] [address] Internal Medicine11/27/23Team MemberRelationshipSpecialtyStart DateEnd Date Dwain Preciado, [address] [place] [address] PCP - GeneralInternal Medicine01/20/24 Cristiane Jerez, LEAD NEURODIAGNOSTIC TECHNOLOGIST.ASPHALT MIXER [address] [place] [address] Internal Medicine11/27/23Team MemberRelationshipSpecialtyStart [place] [address] [place] [address] PCP - GeneralInternal Medicine01/20/24 Cristiane Jerez, LEAD NEURODIAGNOSTIC TECHNOLOGIST.ASPHALT MIXER [address] [place] [address] Internal Medicine11/27/23Team MemberRelationshipSpecialtyStart [place] [address] [place] [address] PCP - GeneralInternal Medicine01/20/24 Cristiane Jerez, LEAD NEURODIAGNOSTIC TECHNOLOGIST.ASPHALT MIXER [address] [place] [address] Internal Medicine11/27/23Team MemberRelationshipSpecialtyStart [place] [address] [place] [address] PCP - GeneralInternal Medicine01/20/24 Cristiane Jerez, LEAD NEURODIAGNOSTIC TECHNOLOGIST.ASPHALT MIXER [address] [place] [address] Internal Medicine11/27/23Team MemberRelationshipSpecialtyStart [place] [address] [place] [address] PCP - GeneralInternal Medicine01/20/24 Cristiane Jerez, LEAD NEURODIAGNOSTIC TECHNOLOGIST.ASPHALT MIXER [address] [place] [address] Internal Medicine11/27/23Team MemberRelationshipSpecialtyStart [place] [address] [place] [address] PCP - GeneralInternal Medicine01/20/24 Cristiane Jerez, LEAD NEURODIAGNOSTIC TECHNOLOGIST.ASPHALT MIXER [address] [place] [address] Internal Medicine11/27/23Team MemberRelationshipSpecialtyStart [place] [address] [place] [address] PCP - GeneralInternal Medicine01/20/24 Cristiane Jerez, LEAD NEURODIAGNOSTIC TECHNOLOGIST.ASPHALT MIXER [address] [place] [address] Internal Medicine11/27/23Team MemberRelationshipSpecialtyStart DateEnd Date Elise Schneider LEAD NEURODIAGNOSTIC TECHNOLOGIST - ASPHALT MIXER [address] [address] PCP - GeneralNurse Practitioner07/07/24Team MemberRelationshipSpecialtyStart Date End Date Elise Schneider LEAD NEURODIAGNOSTIC TECHNOLOGIST - ASPHALT MIXER [address] [address] PCP - GeneralNurse Practitioner07/07/24Team MemberRelationshipSpecialtyStart Date End Date Elise Schneider LEAD NEURODIAGNOSTIC TECHNOLOGIST - ASPHALT MIXER [address] [place] [address] PCP - GeneralNurse Practitioner07/07/24Team MemberRelationshipSpecialtyStart Date End Date Elise Schneider APRN - ASPHALT MIXER [address] [address] PCP - GeneralNurse Practitioner07/07/24Team MemberRelationshipSpecialtyStart Date End Date Elise Schneider LEAD NEURODIAGNOSTIC TECHNOLOGIST - ASPHALT MIXER [address] [address] PCP - GeneralNurse Practitioner07/07/24Team MemberRelationshipSpecialtyStart [place] [address] [place] [address] PCP - GeneralInternal Medicine01/20/24 Cristiane Jerez, LEAD NEURODIAGNOSTIC TECHNOLOGIST.ASPHALT MIXER [address] [place] [address] Internal Medicine11/27/23 Cynthia Marinelli APRN.ASPHALT MIXER [address] [facility] [place] [address] Care PartnerInternal Oaqizsxj05/9/24 Source Comments (unrecognize d section and content) In the event this informatio n is protected by the Federal Confidentiality of Alcohol and Drug Abuse Patient Records regulations: The Federal rules restrict any use of the information to criminally investigate or prosecute any alcohol or drug abuse patient.[facility] HospitalIn the event this information is protected by the Federal Confidentiality of Alcohol and Drug Abuse Patient Records regulations: The Federal rules restrict any use of the information to criminally investigate or prosecute any alcohol or drug abuse patient.[facility] HospitalIn the event this information is protected by the Federal Confidentiality of Alcohol and Drug Abuse Patient Records regulations: The Federal rules restrict any use of the information to criminally investigate or prosecute any alcohol or drug abuse patient.[facility] HospitalIn the event this information is protected by the Federal Confidentiality of Alcohol and Drug Abuse Patient Records regulations: The Federal rules restrict any use of the information to criminally investigate or prosecute any alcohol or drug abuse patient.[facility] HospitalIn the event this information is protected by the Federal Confidentiality of Alcohol and Drug Abuse Patient Records regulations: The Federal rules restrict any use of the information to criminally investigate or prosecute any alcohol or drug abuse patient.[facility] HospitalIn the event this information is protected by the Federal Confidentiality of Alcohol and Drug Abuse Patient Records regulations: The Federal rules restrict any use of the information to criminally investigate or prosecute any alcohol or drug abuse patient.[facility] HospitalIn the event this information is protected by the Federal Confidentiality of Alcohol and Drug Abuse Patient Records regulations: The Federal rules restrict any use of the information to criminally investigate or prosecute any alcohol or drug abuse patient.[facility] HospitalIn the event this information is protected by the Federal Confidentiality of Alcohol and Drug Abuse Patient Records regulations: The Federal rules restrict any use of the information to criminally investigate or prosecute any alcohol or drug abuse patient.[facility] HospitalIn the event this information is protected by the Federal Confidentiality of Alcohol and Drug Abuse Patient Records regulations: The Federal rules restrict any use of the information to criminally investigate or prosecute any alcohol or drug abuse patient.[facility] HospitalIn the event this information is protected by the Federal Confidentiality of Alcohol and Drug Abuse Patient Records regulations: The Federal rules restrict any use of the information to criminally investigate or prosecute any alcohol or drug abuse patient.[facility] HospitalIn the event this information is protected by the Federal Confidentiality of Alcohol and Drug Abuse Patient Records regulations: The Federal rules restrict any use of the information to criminally investigate or prosecute any alcohol or drug abuse patient.[facility] HospitalIn the event this information is protected by the Federal Confidentiality of Alcohol and Drug Abuse Patient Records regulations: The Federal rules restrict any use of the information to criminally investigate or prosecute any alcohol or drug abuse patient.[facility] HospitalIn the event this information is protected by the Federal Confidentiality of Alcohol and Drug Abuse Patient Records regulations: The Federal rules restrict any use of the information to criminally investigate or prosecute any alcohol or drug abuse patient.[facility] HospitalIn the event this information is protected by the Federal Confidentiality of Alcohol and Drug Abuse Patient Records regulations: The Federal rules restrict any use of the information to criminally investigate or prosecute any alcohol or drug abuse patient.[facility] Reason for Visit (unrecogniz ed section and content) ReasonCommentsEstablish CareReasonCommentsAppointmentReasonCommentsConsulthernia SpecialtyDiagnoses / ProceduresReferred By ContactReferred To ContactGeneral Surgery Diagnoses Left groin mass Procedures CONSULT TO GENERAL SURGERY OFFICE/OUTPATIENT NEW HIGH MDM 60 [place] [address] [place] [address] Referral IDStatusReasonStart DateExpiration DateVisits RequestedVisits [id number] PCP Requested Referral /[id number] CTSpecialtyDiagnoses / Procedures Referred By ContactReferred To ContactCT IMAGING Diagnoses Left lower quadrant abdominal pain Procedures CT ABD/PEL W IVCON CT ABD & PELVIS W/CONTRAST Kings Landers III, MD [facility] [place] [address] [place] [address] Referral IDStatusReasonStart DateExpiration DateVisits RequestedVisits [id number] Auto-Generated Referral /[id number] / ProceduresReferred By ContactReferred To ContactCT IMAGING Diagnoses Left lower quadrant abdominal pain Procedures CT ABD/PEL W IVCON CT ABD & PELVIS W/CONTRAST Kings Landers III, MD [facility] [place] [address] [place] [address] ReasonCommentsConsultRecurrent left inguinal herniaSpecialtyDiagnoses / ProceduresReferred By ContactReferred To ContactGeneral Surgery Diagnoses Recurrent left inguinal hernia Procedures CONSULT TO GENERAL SURGERY OFFICE/OUTPATIENT [facility] 60 MINUTES Leora Mei PA-C [address] [place] [address] Referral IDStatusReasonStwest rupert DateExpiration DateVisits RequestedVisits [id number] PCP Requested Referral /[id number]qx LumpEvaluation of left groin bulge x 1 year, h/o right inguinal hernia repair x 2.ReasonCommentsNew patient, to establish relationshiphernia Continuous Active and Recently Administ ered Medications (unrecognized section and content) Medication Order04/08 lactated ringers infusion IntraVENous, at 100 mL/hr, CONTINUOUS, Starting on Amaya 09/03/24 at 0915, Pre-op (day of surgery) * 0907 (New Bag - Provider: Yuni Cramer RN) * 1017 (NoRateChange - Provider: MAIN Santana CRNA) * 1040 (Anesthesia Volume Adjustment - Provider: MAIN Santana CRNA) * 1125 (Stopped - Provider: Yuni Cramer RN) FOR RECORDS PERTAINING TO PATIENTS WHO ARE [...] BE BASED ON THE PRIMARY CLINICAL RECORDS. [employer] provides no warranty or guarantee of the accuracy or completeness of information in this document.
[2025-04-16 09:04] LABS: Hematocrit 38.5 % (36.0-48.0); Hemoglobin 12.9 g/dL (12.0-16.0); Immature Granulocytes Abs Auto 0.05 10^3/uL (0.00-0.03); Immature Granulocytes Pct Auto 0.3 % (0.0-0.5); Lymphocytes Absolute Auto 4.4 10^3/uL (1.2-3.8); Mean Corpuscular HGB Conc 33.5 g/dL (29.9-35.2); Mean Corpuscular Hemoglobin 31.4 pg (26.7-34.0); Mean Corpuscular Volume 93.7 fL (81.0-99.0); Platelet Count 325 10^3/uL (150-450); Red Blood Count 4.11 10^6/uL (4.20-5.40); White Blood Count 15.2 10^3/uL (4.0-11.0)
[2025-04-16 09:36] LABS: Iron 76.0 ug/dL (50.0-170.0); Percent Iron Saturation 26.8 %; Total Iron Binding Capacity 284.0 ug/dL (250.0-450.0)
[2025-04-16 09:44] LABS: Alanine Aminotransferase 20 U/L (14-59); Albumin Globulin Ratio 1.2; Albumin Level 3.7 g/dL (3.4-5.0); Alkaline Phosphatase 64 U/L (46-116); Anion Gap 13.6; Aspartate Amino Transferase 16 U/L (15-37); Blood Urea Nitrogen 13.0 mg/dL (7.0-18.0); Calcium 9.0 mg/dL (8.5-10.1); Carbon Dioxide 24.8 mmol/L (21.0-32.0); Chloride 105 mmol/L (98-107); Cholesterol 173 mg/dL (<=200); Estimated GFR (African America >60 (>=60 mL/min/1.73m^2); Estimated GFR (Non-African Ame >60 (>=60 mL/min/1.73m^2); Globulin 3.1 g/dL; Glucose 100 mg/dL (74-106); HDL Cholesterol 48 mg/dL (40-60); Potassium 4.4 mmol/L (3.5-5.1); Sodium 139 mmol/L (136-145); Thyroid Stimulating Hormone 3.968 uIU/mL (0.358-3.740); Total Protein 6.8 g/dL (6.4-8.2); Triglycerides 148 mg/dL (<=150); VLDL CHOLESTEROL 29.6 mg/dL
[2025-04-16 11:39] LABS: Ferritin 43.0 ng/mL (8.0-252.0); Folate 10.90 ng/mL (8.60-58.90)
[2025-04-17 03:16] LABS: Vitamin B12 544 pg/mL (232-1245)
== END 2025-04-16 08:29 | disposition home or self-care (01) ==
LOC: LAB 08:28
PROVIDERS: PCP Nurse Practitioner
DX: Z79.899 Other long term (current) drug therapy (principal); R53.83 Other fatigue; E83.10 Disorder of iron metabolism, unspecified
CPT/HCPCS: 36415; 80053; 80061; 80307; 82306; 82607; 82728; 82746; 83036; 83540; 83550; 83735; 84436; 84443; 84480; 84630; 85025